=== PATIENT | female | born 1940 | race Caucasian/White ===

== ENCOUNTER → 2016-08-25 | Outpatient (CLI) | payer MEDICARE ==
--- NOTE | 2016-08-26 09:36 | MM ---
Reason for exam: screening (asymptomatic). Last mammogram was performed 1 year and 1 month ago. History: Patient is postmenopausal. Family history of breast cancer in aunt, premenopausal breast cancer in mother, and breast cancer in paternal aunt. Taking estrogen for 30 years 2 months. Taking progesterone for 30 years 2 months. Physical Findings: A clinical breast exam by your physician is recommended on an annual basis and results should be correlated with mammographic findings. MG 3D Screening Mammo W/Cad Bilateral CC, MLO, and XCCL view(s) were taken. Prior study comparison: August 08, 2015, bilateral MG 3d diag mammo w/cad DESTINI. July 24, 2014, bilateral MG screening mammo w CAD. The breast tissue is almost entirely fat. There is no discrete abnormality. No significant changes when compared with prior studies. ASSESSMENT: Negative, BI-RAD 1 RECOMMENDATION: Routine screening mammogram of both breasts in 1 year.
== END | disposition home or self-care (01) ==
LOC: RADMAMWWP 10:58
PROVIDERS: ATTEND Family Medicine
DX: Z12.31 Encounter for screening mammogram for malignant neoplasm of breast (principal)
CPT/HCPCS: 77063; G0202

== ENCOUNTER → 2016-11-10 | Outpatient (CLI) | payer MEDICARE ==
--- NOTE | 2016-11-10 15:14 | BD ---
EXAMINATION TYPE: MG DEXA axial skeleton. DATE OF EXAM: 11/10/2016 1:24 PM COMPARISON: NONE CLINICAL HISTORY: Osteoporosis screening, postmenopausal female Height: 56 IN Weight: 201 LBS FRAX RISK QUESTIONS: Alcohol (3 or more units per day): NO Family History (Parent hip fracture): NO Glucocorticoids (More than 3mos): NO (Ex: prednisone, prednisolone, methylprednisolone, dexamethasone, and hydrocortisone). History of Fracture in Adulthood: NO Secondary Osteoporosis: 1. Type 1 Diabetes: NO 2. Hyperthyroidism: NO 3. Menopause before 45: YES AGE 36 4. Malnutrition: NO 5. Chronic liver disease: NO Rheumatoid Arthritis: NO Current Tobacco Use: NO RISK FACTORS HISTORY OF: Active: MODERATE Postmenopausal woman: AGE 36 Take estrogen and/or progesterone medications: YES How long: AGE 44- PRESENT Lost more than 2 inches in height since high school: YES LOST 4" MEDICATIONS: Additional Medications: PREMARIN, BLOOD PRESSURE MED EXAM MEASUREMENTS: Bone mineral densitometry was performed using the Fast Orientation System. Bone mineral density as measured about the Lumbar spine is: ----- L1-L4(G/cm2): 1.908 T Score Values are as follows: ----- L2: 4.0 ----- L3: 5.3 ----- L4: 8.4 ----- L1-L4: 6.1 Bone mineral density has: Decreased -1.1% since study of: 08/10/2011 Bone mineral density about the R hip (g/cm2): 1.022 Bone mineral density about the L hip (g/cm2): 1.077 T Score values are as follows: -----R Neck: -0.1 -----L Neck: 0.3 -----R Total: 2.0 -----L Total: 2.3 Bone mineral density has: Increased 2.8% since study of: 08/10/2011 IMPRESSION: Normal bone density There is a scoliosis of the lumbar spine NOTE: T-SCORE=SD OF THE YOUNG ADULT MEAN.
== END | disposition home or self-care (01) ==
LOC: RADBDWWP 13:21
PROVIDERS: ATTEND Family Medicine
DX: Z13.820 Encounter for screening for osteoporosis (principal)
CPT/HCPCS: 77080

== ENCOUNTER → 2017-03-08 | Outpatient (CLI) | payer MEDICARE ==
--- NOTE | 2017-03-08 12:02 | XR ---
EXAMINATION TYPE: XR shoulder complete LT DATE OF EXAM: 03/08/2017 COMPARISON: NONE HISTORY: 76-year-old female with shoulder pain TECHNIQUE: 3 views FINDINGS: AC joint appears congruent and intact. Subacromial space is preserved without tendinous or bursal marilu cifications. No acute fracture, subluxation, or dislocation. IMPRESSION: No acute osseous abnormality seen.
== END | disposition home or self-care (01) ==
LOC: RADXRMAIN 10:44
PROVIDERS: ATTEND Family Medicine
DX: M25.512 Pain in left shoulder (principal)

== ENCOUNTER → 2017-08-03 | Outpatient (CLI) | payer MEDICARE ==
--- NOTE | 2017-08-03 12:59 | XR ---
EXAMINATION TYPE: XR shoulder complete BILAT DATE OF EXAM: 08/03/2017 CLINICAL HISTORY: Bilateral shoulder pain after recent fall injury 2 weeks ago. TECHNIQUE: Three views of the bilateral shoulders are obtained. COMPARISON: Left shoulder x-ray March 08, 2017. FINDINGS: The osseous structures are demineralized. There is no acute fracture/dislocation evident in either shoulder. Widening of right acromioclavicular joint is present without suspicious superior po sitioning of distal clavicle. There is subchondral cystic change superolateral humeral head. There is age indeterminate but suspected old posterior lateral right sixth rib fracture. Images of left shoulder show prominent narrowing acromioclavicular joint on current study without sig nificant spurring. Glenohumeral joint is maintained. Visualized ribs are intact. IMPRESSION: There is no acute fracture or dislocation in either shoulder.
--- NOTE | 2017-08-03 13:15 | XR ---
EXAMINATION TYPE: XR lumbosacral spine min 4V DATE OF EXAM: 08/03/2017 CLINICAL HISTORY: Low back pain after fall injury 2 weeks ago. TECHNIQUE: Frontal, lateral, and oblique images of the lumbar spine are obtained. COMPARISON: Lumbar spine x-ray July 24, 2011 FINDINGS: There are 6 lumbar type vertebral bodies redemonstrated. The lumbar spine redemonstrates dextroconvex scoliosis centered at L3-L4 level. Evaluation suboptimal lateral view due to patient's b driss habitus. There appears to be moderate to advanced compression type fracture deformity at T12 leve l with advanced disc space narrowing suspected ossific fusion near the thoracolumbar junction. No joy ear lucency to suggest acute fracture is clearly seen. Moderate to advanced multilevel spurring is se en. Moderate to advanced multilevel facet arthropathy is present. Disc space preserved L5-S1 level. P rominent vascular calcification overlying abdominal aorta is seen. Oblique images are suboptimal in e valuation due to underlying scoliosis. Cholecystectomy clips are redemonstrated. IMPRESSION: Dextroconvex scoliosis multilevel advanced degenerative changes. Suspect moderate to adva nced chronic compression fracture T12 level new from prior CT. No convincing evidence for acute fract ure or dislocation.
--- NOTE | 2017-08-03 13:18 | XR ---
EXAMINATION TYPE: XR thoracic spine complete DATE OF EXAM: 08/03/2017 CLINICAL HISTORY: Fall injury 2 weeks ago with mid back pain. TECHNIQUE: Frontal, lateral, and swimmer's view of thoracic spine are obtained. COMPARISON: None. FINDINGS: Thoracic spine show dextroconvex scoliotic curvature centered in lower thoracic spine witho ut evidence of acute fracture or dislocation. Spine is straightened in lower thoracic levels on later al images. Vertebral body heights are preserved. There is moderate to advanced multilevel anterior an d lateral spurring in the mid to lower thoracic spine. There is mild to moderate multilevel disc spac e narrowing in the mid to lower thoracic spine. Suspected compression fracture near L1 level on lumba r spine x-ray does not reproduce thoracic images. IMPRESSION: No acute fracture or dislocation is seen in the thoracic spine.
--- NOTE | 2017-08-03 13:20 | XR ---
EXAMINATION TYPE: XR cervical spine comp DATE OF EXAM: 08/03/2017 TECHNIQUE: Frontal, lateral, oblique, swimmers, and open mouth view of the cervical spine are obtaine d. HISTORY: M54.5 low back pain neck pain after fall injury 2 weeks ago. COMPARISON: None FINDINGS: The cervical spine is visualized in its entirety from C1 thru the bottom of C7 level, ther e is subtle grade 1 retrolisthesis of C3 on C4 without evidence of acute fracture or dislocation. Th e pre-vertebral soft tissue appears within normal limits. The C1-C2 articulation is within normal li mits on the open mouth view. There is suboptimal evaluation of C7-T1 level despite several repeat at tempts due to patient's body habitus. Vertebral body heights are maintained. Disc space heights are p reserved. No significant spurring is seen. There are uncovertebral facet degenerative changes contrib uting to left greater than right mid cervical neural foraminal narrowing seen best on oblique images. Overlying soft tissue is unremarkable. IMPRESSION: No acute fracture or dislocation is seen in the cervical spine.
== END | disposition home or self-care (01) ==
LOC: RADXRMAIN 12:18
PROVIDERS: ATTEND Family Medicine
DX: M47.816 Spondylosis without myelopathy or radiculopathy, lumbar region (principal); M41.9 Scoliosis, unspecified; M54.2 Cervicalgia; M54.6 Pain in thoracic spine; M25.511 Pain in right shoulder; M25.512 Pain in left shoulder
CPT/HCPCS: 72050; 72072; 72110

== ENCOUNTER 2017-09-13 12:42 | Inpatient (IN) | payer MEDICARE ==
[2017-09-13] MEDS ORDERED: SODIUM CHLORIDE 0.9% 1,000 ML IV STA (14:16)
[2017-09-13] MEDS ORDERED: VERAPAMIL 2.5 MG/ML 2 ML AMP IVP STA (14:16)
--- NOTE | 2017-09-13 14:32 | ED ---
General Adult HPI - General Chief complaint: Dizziness Stated complaint: Dizzy, Nauseated Time Seen by Provider: 09/13/17 13:58 Source: patient, family, RN notes reviewed, old records reviewed Mode of arrival: ambulatory Limitations: no limitations - History of Present Illness Initial comments: Chief complaint and history of present illness is a 76-year-old female here with daughter. The patient is here because of dizziness which comes and goes. Daughter reports that she had a slip and fall on an icy edge of a car in July. She landed on her buttocks and hit her head or neck. She was placed in a [place] collar the next day when she turned her head to the left right with a collar on she had a discomfort to the left trapezius muscle area. She did go to see her family physician today because her blood pressure was elevated at home 180/101. At the doctor's office it was rechecked it was 130/ 80. Heart rate there was 50/60. Around emergency room her heart rate was 50 and blood pressure was 131/72. The patient was being placed in a gown when her heart rate jumped to 140. EKG showed A. fib with RVR. This is a new medical issue. - Related Data Home Medications Medication Instructions Recorded Confirmed Brimonidine Tartrate/Timolol 1 drop BOTH EYES BID 08/20/14 09/13/17 [Combigan 0.2%/0.5% Ophth Soln] Latanoprost Ophth [Xalatan 0.005%] 1 drop BOTH EYES HS 08/20/14 09/13/17 Losartan/Hydrochlorothiazide 1 tab PO DAILY 08/20/14 09/13/17 [Hyzaar 100-25 Tablet] Estrogens, Conjugated [Premarin] 0.9 mg PO DAILY 10/29/15 09/13/17 Meclizine [Antivert] 25 mg PO TID 09/13/17 09/13/17 Allergies Allergy/AdvReac Type Severity Reaction Status Date / Time Sulfa (Sulfonamide Allergy Unknown Verified 09/13/17 14:35 Antibiotics) Review of Systems ROS Statement: Those systems with pertinent positive or pertinent negative responses have been documented in the HPI. Review of systems. The patient has dizziness with quick movement of the left or right or laying down quickly or sitting up quickly. This been ongoing for 3 weeks. She been on for meclizine during that time. It usually helps. Today she didn't take because she was having medical testing done. She did stop and see her family doctor because of her dizziness. He had ordered a CAT scan of the brain with IV contrast. Unbeknownst him the patient was apparently in and out of A. fib with RVR which she demonstrated here. Patient had an IV started she'll be receiving verapamil 5 mg slow IV push. Historical note, Cardizem unavailable. The patient is otherwise denying any palpitations chest pain. She was nauseated and vomiting for the first time this morning while in emergency room. Past medical problems significant for hypertension, osteoarthritis, pneumonia, glaucoma and diverticulitis. Surgeries include cholecystectomy hysterectomy. Family history noncontributory. Patient is a former smoker drinks alcohol socially occasionally. ALLERGIES to sulfa. ROS Other: All systems not noted in ROS Statement are negative. Past Medical History Past Medical History: Hypertension, Osteoarthritis (OA), Pneumonia Additional Past Medical History / Comment(s): glucoma, diverticulitis, BRONCHITIS ,LT EYE CATARACT, PT STATED"HAS RUPTURE ON OPTIC NERVE RT EYE HAS LASER SX PLANNED FOR FRI" History of Any Multi-Drug Resistant Organisms: None Reported Past Surgical History: Cholecystectomy, Hysterectomy Past Anesthesia/Blood Transfusion Reactions: No Reported Reaction Past Psychological History: No Psychological Hx Reported Smoking Status: Former smoker Past Alcohol Use History: Occasional Past Drug Use History: None Reported - Past Family History Father Family Medical History: Cancer, Congestive Heart Failure (CHF) Additional Family Medical History / Comment(s): ENLARGED HEART Brother(s) Family Medical History: Cancer, Liver Disease Additional Family Medical History / Comment(s): CANCER IN HIS EYE AND IN HIS LIVER. AND 2 OTHER BROTHERS FROM NH'S Sister(s) Family Medical History: CVA/TIA Mother Family Medical History: Cancer Additional Family Medical History / Comment(s): BREAST/LUNG CANCER,LEUKEMIA General Exam - General Exam Comments Initial Comments: General: The patient is awake and alert, does emergency room because of nausea vomiting and moderate to severe dizziness. While in emergency room EKG showed evidence of A. fib with RVR rate 135-145. This is new onset. Vital signs temperature 97.5 initial pulse was 50. Respiratory rate 18 pressure 131/72. Pulse ox 90% room air Eye: Pupils are equal, round and reactive to light, extra-ocular movements are intact ; there is normal conjunctiva bilaterally. No signs of icterus. Ears, nose, mouth and throat: There are moist mucous membranes and no oral lesions. Neck: The neck is supple, there is no tenderness, no carotid bruit appreciated. Cardiovascular: Heart rate initially bradycardic at 50. And then A. fib with RVR was noted on the monitor. EKG confirms this. Respiratory: Lungs are clear to auscultation, respirations are non-labored, breath sounds are equal. No wheezes, stridor, rales, or rhonchi. Gastrointestinal: Soft, non-distended, non-tender abdomen without masses or organomegaly noted. There is no rebound or guarding present. No CVA tenderness. Bowel sounds are unremarkable. Back: There is no tenderness to palpation in the midline. There is no obvious deformity. Musculoskeletal: Normal ROM, no tenderness, There is no pedal edema. There is no calf tenderness or swelling. Sensation intact. Pulses equal bilaterally 2+. Neurological: CN II-XII intact, There are no obvious motor or sensory deficits. Coordination appears grossly intact. Speech is normal. No focal or lateralizing findings. No nystagmus when looking toward the left or right. Dizziness does increase when she sits up or moves her head quickly or lays down quickly. And then subsides after a minute or 2. Skin: Skin is warm and dry and no rashes or lesions are noted. Psychiatric: Cooperative, Limitations: no limitations Course Vital Signs 09/13/17 09/13/17 09/13/17 12:46 14:38 15:05 Temperature 97.5 F L Pulse Rate 50 L 100 Pulse Rate [ 146 H Radio Division Captain ] Respiratory 18 18 Rate Blood Pressure 131/72 133/86 O2 Sat by Pulse 98 98 Oximetry 09/13/17 16:14 Temperature Pulse Rate 88 Pulse Rate [ Radio Division Captain ] Respiratory 18 Rate Blood Pressure 125/74 O2 Sat by Pulse 98 Oximetry EKG Findings - EKG Comments: EKG Findings:: EKG was done and reviewed at 1450 showing A. fib with RVR rate 136. No acute ST elevation appreciated. QRS duration 74, QT [address] Pelletier Medical Decision Making - Medical Decision Making medical decision making; a 76-year-old female here with a complaint of dizziness. On emergency room the patient vomited several times. He was found the patient was in A. fib with RVR. Alternating with a bradycardic rhythm. No EKG was done when she was bradycardic. The patient was given verapamil 5 mg IV push. Labs show white count of 11 hemoglobin 13.8 hematocrit of 40 with a potassium 3.6. INR 0.9. BUN 19 creatinine 0.6 GFR 88. Glucose 100. Troponin less than 0.012. Urine essentially clean with only 6 whites. Chest x-ray was done and reviewed by radiologist. His findings are there is no heart failure nor confluent pneumonic infiltrate. Costophrenic angles are clear. Thoracic aorta is atheromatous. There are chest leads. There are spurring in the thoracic spine. Impression no active cardiopulmonary disease. As read by Dr. Bernard At this time, 1740 9 PM the patient is back in sinus rhythm but bradycardic rhythm of 58. I discussed with the patient and family at bedside her history of A. fib seemingly converted early slowed at this time with IV verapamil. The patient be admitted to the hospital. With cardiology consultation. - Lab Data Result diagrams: 09/13/17 14:05 09/13/17 14:05 Lab Results 09/13/17 09/13/17 09/13/17 Range/Units 14:05 14:05 14:05 WBC 11.0 H (3.8-10.6) k/uL RBC 4.81 (3.80-5.40) m/uL Hgb 13.8 (11.4-16.0) gm/dL Hct 40.2 (34.0-46.0) % MCV 83.7 D (80.0-100.0) fL MCH 28.7 (25.0-35.0) pg MCHC 34.4 (31.0-37.0) g/dL RDW 13.5 (11.5-15.5) % Plt Count 292 (150-450) k/uL Neutrophils % 69 % Lymphocytes % 22 % Monocytes % 6 % Eosinophils % 1 % Basophils % 1 % Neutrophils # 7.6 (1.3-7.7) k/uL Lymphocytes # 2.4 (1.0-4.8) k/uL Monocytes # 0.7 (0-1.0) k/uL Eosinophils # 0.1 (0-0.7) k/uL Basophils # 0.1 (0-0.2) k/uL PT 9.4 (9.0-12.0) sec INR 0.9 (<1.2) Sodium 138 (137-145) mmol/L Potassium 3.6 (3.5-5.1) mmol/L Chloride 98 (98-107) mmol/L Carbon Dioxide 30 (22-30) mmol/L Anion Gap 10 mmol/L BUN 19 H (7-17) mg/dL Creatinine 0.60 (0.52-1.04) mg/dL Est GFR (CKD-EPI)AfAm >90 (>60 ml/min/1.73 sqM) Est GFR (CKD-EPI)NonAf 88 (>60 ml/min/1.73 sqM) Glucose 100 H (74-99) mg/dL Calcium 9.5 (8.4-10.2) mg/dL Total Bilirubin 0.4 (0.2-1.3) mg/dL AST 17 (14-36) U/L ALT 11 (9-52) U/L Alkaline Phosphatase 108 (38-126) U/L Troponin I (0.000-0.034) ng/mL Total Protein 6.9 (6.3-8.2) g/dL Albumin 3.6 (3.5-5.0) g/dL Urine Color Urine Appearance (Clear) Urine pH (5.0-8.0) Ur Specific [place] (1.001-1.035) Urine Protein (Negative) Urine Glucose (UA) (Negative) Urine Ketones (Negative) Urine Blood (Negative) Urine Nitrite (Negative) Urine Bilirubin (Negative) Urine Urobilinogen (<2.0) mg/dL Ur Leukocyte Esterase (Negative) Urine RBC (0-5) /hpf Urine WBC (0-5) /hpf Ur Squamous Epith Cells (0-4) /hpf Amorphous Sediment (None) /hpf Urine Bacteria (None) /hpf 09/13/17 09/13/17 Range/Units 14:05 16:36 WBC (3.8-10.6) k/uL RBC (3.80-5.40) m/uL Hgb (11.4-16.0) gm/dL Hct (34.0-46.0) % MCV (80.0-100.0) fL MCH (25.0-35.0) pg MCHC (31.0-37.0) g/dL RDW (11.5-15.5) % Plt Count (150-450) k/uL Neutrophils % % Lymphocytes % % Monocytes % % Eosinophils % % Basophils % % Neutrophils # (1.3-7.7) k/uL Lymphocytes # (1.0-4.8) k/uL Monocytes # (0-1.0) k/uL Eosinophils # (0-0.7) k/uL Basophils # (0-0.2) k/uL PT (9.0-12.0) sec INR (<1.2) Sodium (137-145) mmol/L Potassium (3.5-5.1) mmol/L Chloride (98-107) mmol/L Carbon Dioxide (22-30) mmol/L Anion Gap mmol/L BUN (7-17) mg/dL Creatinine (0.52-1.04) mg/dL Est GFR (CKD-EPI)AfAm (>60 ml/min/1.73 sqM) Est GFR (CKD-EPI)NonAf (>60 ml/min/1.73 sqM) Glucose (74-99) mg/dL Calcium (8.4-10.2) mg/dL Total Bilirubin (0.2-1.3) mg/dL AST (14-36) U/L ALT (9-52) U/L Alkaline Phosphatase (38-126) U/L Troponin I <0.012 (0.000-0.034) ng/mL Total Protein (6.3-8.2) g/dL Albumin (3.5-5.0) g/dL Urine Color Colorless Urine Appearance Clear (Clear) Urine pH 7.0 (5.0-8.0) Ur Specific [place] 1.003 (1.001-1.035) Urine Protein Negative (Negative) Urine Glucose (UA) Negative (Negative) Urine Ketones Negative (Negative) Urine Blood Trace H (Negative) Urine Nitrite Negative (Negative) Urine Bilirubin Negative (Negative) Urine Urobilinogen <2.0 (<2.0) mg/dL Ur Leukocyte Esterase Negative (Negative) Urine RBC 3 (0-5) /hpf Urine WBC 6 H (0-5) /hpf Ur Squamous Epith Cells 1 (0-4) /hpf Amorphous Sediment Rare H (None) /hpf Urine Bacteria Many H (None) /hpf Disposition Clinical Impression: New onset a-fib, Vertigo Disposition: ADMITTED IP TO THIS HOSP Condition: Serious Referrals: Justus Ledbetter DO [Primary Care Provider] - 1-2 days
[2017-09-13 14:36] LABS: INR 0.9 (<1.2); Prothrombin Time 9.4 sec (9.0-12.0)
[2017-09-13 14:44] LABS: Basophils # (A) 0.1 k/uL (0-0.2); Basophils % (A) 1 %; Eosinophils # (A) 0.1 k/uL (0-0.7); Eosinophils % (A) 1 %; HCT 40.2 % (34.0-46.0); HGB 13.8 gm/dL (11.4-16.0); Lymphocytes # (A) 2.4 k/uL (1.0-4.8); Lymphocytes % (A) 22 %; MCH 28.7 pg (25.0-35.0); MCHC 34.4 g/dL (31.0-37.0); Mean Platelet Volume 6.9; Monocytes # (A) 0.7 k/uL (0-1.0); Monocytes % (A) 6 %; Neutrophils # (A) 7.6 k/uL (1.3-7.7); Neutrophils % (A) 69 %; Platelet Count 292 k/uL (150-450); RBC 4.81 m/uL (3.80-5.40); RDW 13.5 % (11.5-15.5)
[2017-09-13 14:56] LABS: MCV 83.7 fL (80.0-100.0)
[2017-09-13 14:58] LABS: ALT 11 U/L (9-52); AST 17 U/L (14-36); Albumin 3.6 g/dL (3.5-5.0); Alkaline Phosphatase 108 U/L (38-126); Anion Gap 10 mmol/L; Blood Urea Nitrogen 19 mg/dL (7-17); Calcium 9.5 mg/dL (8.4-10.2); Carbon Dioxide 30 mmol/L (22-30); Chloride 98 mmol/L (98-107); Glucose 100 mg/dL (74-99); Potassium 3.6 mmol/L (3.5-5.1); Sodium 138 mmol/L (137-145); Total Bilirubin 0.4 mg/dL (0.2-1.3); Total Protein 6.9 g/dL (6.3-8.2)
[2017-09-13 16:57] LABS: Amorphous Sediment,Urine Rare /hpf; Appearance,Urine Clear (Clear); Bacteria,Urine Many /hpf; Bilirubin,Urine Negative (Negative); Blood,Urine Trace (Negative); Color,Urine Colorless; Glucose,Urine (UA) Negative (Negative); Ketones,Urine Negative (Negative); Leukocyte Esterase,Urine Negative (Negative); Nitrite,Urine Negative (Negative); Protein,Urine Negative (Negative); RBC,Urine 3 /hpf (0-5); Specific Gravity,Urine 1.003 (1.001-1.035); Squamous Epithelial Cell,Urine 1 /hpf (0-4); Urobilinogen,Urine <2.0 mg/dL (<2.0); WBC,Urine 6 /hpf (0-5)
--- NOTE | 2017-09-13 17:18 | XR ---
EXAMINATION TYPE: XR chest 2V DATE OF EXAM: 09/13/2017 COMPARISON: NONE HISTORY: Dizziness TECHNIQUE: Frontal and lateral views of the chest are obtained. FINDINGS: There is no heart failure nor confluent pneumonic infiltrate. Costophrenic angles are lupillo r. Thoracic aorta is atheromatous. There are chest leads. There is spurring in the thoracic spine. IMPRESSION: No active cardiopulmonary disease.
[2017-09-13] MEDS ORDERED: ACETAMINOPHEN TAB 325 MG TAB PO PRN (17:51)
[2017-09-13] MEDS ORDERED: NALOXONE 0.4 MG/ML 1 ML VIAL IV PRN (17:51)
[2017-09-13] MEDS ORDERED: HEPARIN SOD,PORK IN 0.45% NACL 25,000 UNIT in 0.45% NACL 1 500ML.BAG IV SCH (18:15)
[2017-09-13] MEDS: SODIUM CHLORIDE 0.9% 1,000 ML IV SCH (20:06)
[2017-09-13 20:41] LABS: Creatine Kinase MB 1.8 ng/mL (0.0-2.4)
[2017-09-13 20:55] LABS: Troponin I 0.069 ng/mL (0.000-0.034)
[2017-09-13] MEDS ORDERED: [UNRECOGNIZED DRUG - OTHER] BOTH EYES SCH (21:00)
[2017-09-13] MEDS ORDERED: TIMOLOL BOTH EYES SCH (21:00)
[2017-09-13] MEDS ORDERED: BRIMONIDINE TARTRATE BOTH EYES SCH (21:00)
[2017-09-13] MEDS: MECLIZINE 25 MG TAB PO SCH (22:45)
[2017-09-13] MEDS: LATANOPROST 0.005% OPHTH DROPS 2.5 ML BTL BOTH EYES SCH (22:46)
[2017-09-13] MEDS: TIMOLOL 0.5% OPHTH DROPS 5 ML BTL BOTH EYES SCH (22:46)
[2017-09-13] MEDS: BRIMONIDINE TARTRATE 0.2% DROPS 5 ML BTL BOTH EYES SCH (22:46)
[2017-09-14 02:41] LABS: Creatine Kinase <20 U/L (30-135)
[2017-09-14 02:52] LABS: Creatine Kinase MB 1.3 ng/mL (0.0-2.4)
[2017-09-14 03:18] LABS: Troponin I 0.063 ng/mL (0.000-0.034)
[2017-09-14 06:22] LABS: Basophils % (A) 1 %; Eosinophils # (A) 0.1 k/uL (0-0.7); Eosinophils % (A) 2 %; HCT 33.8 % (34.0-46.0); Lymphocytes # (A) 3.3 k/uL (1.0-4.8); Lymphocytes % (A) 40 %; MCH 28.2 pg (25.0-35.0); MCHC 32.7 g/dL (31.0-37.0); MCV 86.5 fL (80.0-100.0); Monocytes # (A) 0.5 k/uL (0-1.0); Monocytes % (A) 6 %; Neutrophils % (A) 48 %; Platelet Count 231 k/uL (150-450); RBC 3.91 m/uL (3.80-5.40); RDW 13.7 % (11.5-15.5); WBC 8.3 k/uL (3.8-10.6)
[2017-09-14 07:19] LABS: ALT 19 U/L (9-52); AST 43 U/L (14-36); Albumin 2.7 g/dL (3.5-5.0); Alkaline Phosphatase 83 U/L (38-126); Anion Gap 7 mmol/L; Blood Urea Nitrogen 19 mg/dL (7-17); Calcium 8.7 mg/dL (8.4-10.2); Carbon Dioxide 30 mmol/L (22-30); Chloride 105 mmol/L (98-107); Glucose 92 mg/dL (74-99); Potassium 4.1 mmol/L (3.5-5.1); Sodium 142 mmol/L (137-145); Total Bilirubin 0.3 mg/dL (0.2-1.3); Total Protein 5.4 g/dL (6.3-8.2)
[2017-09-14] MEDS: MECLIZINE 25 MG TAB PO SCH ×3 (07:59→21:45)
[2017-09-14] MEDS: TIMOLOL 0.5% OPHTH DROPS 5 ML BTL BOTH EYES SCH ×2 (07:59→21:44)
[2017-09-14] MEDS: BRIMONIDINE TARTRATE 0.2% DROPS 5 ML BTL BOTH EYES SCH ×2 (07:59→21:44)
[2017-09-14] MEDS: LOSARTAN-HCTZ 50-12.5 MG 1 EACH TAB PO SCH (07:59)
[2017-09-14] MEDS: SODIUM CHLORIDE 0.9% 1,000 ML IV SCH (08:00)
[2017-09-14] MEDS ORDERED: ESTROGENS, CONJUGATED 0.45 MG TAB PO SCH (09:00)
[2017-09-14] MEDS ORDERED: PREMARIN PO SCH (09:24)
--- NOTE | 2017-09-14 09:57 | CT ---
EXAMINATION TYPE: CT brain wo con DATE OF EXAM: 09/14/2017 COMPARISON: NONE HISTORY: Vertigo CT DLP: [address] of the brain was performed. The ventricles, basal cisterns and sulci overlying the cerebral convexities demonstrate mild enlargem ent. There is no evidence for intracranial hemorrhage or sulcal effacement. There is decreased attenuation about the periventricular white matter and deep white matter of both c erebral hemispheres, compatible with chronic small vessel ischemia. Differential diagnosis does inclu de demyelination. No mass effects are seen.No midline shift. Osseous calvarium is intact. If symptoms persist consider MRI. IMPRESSION: 1. Age related atrophic and chronic small vessel ischemic change without acute intracranial process s een at this time.
[2017-09-14] MEDS ORDERED: RX INFO: IV CONTRAST WAS GIVEN 1 EACH MISC MISCELLANE PRN ×2 (10:15→11:39)
[2017-09-14] MEDS: APIXABAN 5 MG TAB PO SCH ×2 (10:42→21:45)
--- NOTE | 2017-09-14 10:58 | CONS ---
CONSULTATION CHIEF COMPLAINT: Dizziness. Milly is a 76-year-old lady with history of hypertension who presented to hospital with symptoms of vertigo. She was found to be in atrial fibrillation with somewhat of a poorly controlled ventricular rate for which Cardiology had been consulted. She subsequently converted to sinus rhythm and remains in sinus rhythm. She denies chest pain, difficulty in breathing, palpitations, or syncope. There is no history of focal neurological deficits. The patient has already been started on Antivert in the outpatient setting and which we have to continued. This morning she is feeling better. The vertigo has improved. EKG shows sinus bradycardia. Earlier EKG showed atrial fibrillation. Labs showed that her troponins are mildly elevated at 0.069 and 0.063 and the initial trope was less than 0.012. PAST MEDICAL HISTORY: Significant for hypertension. MEDICATIONS: At home include Hyzaar, Premarin and Antivert. ALLERGIES: SULFA. FAMILY HISTORY: Negative for premature coronary artery disease. SOCIAL HISTORY: Negative for smoking, EtOH abuse, or drug abuse. REVIEW OF SYSTEMS: HEENT is unremarkable. CARDIAC: As described above. RESPIRATORY: Negative. GI: Negative. GENITOURINARY: Negative. ALLERGY/IMMUNOLOGY: Negative. SKIN: Negative. MUSCULOSKELETAL: Significant for arthritis. PSYCHOSOCIAL: Negative. ENDOCRINE: Negative. HEMATOLOGICAL: Negative. DERM: Negative. CONSTITUTIONAL: Negative. ONCOLOGICAL: Negative. Rest of the system review is not relevant. PHYSICAL EXAM: Comfortable at rest. Patient is afebrile. Heart rate is 70 beats per minute, blood pressure is 169/74. There is no jugular venous distention. Carotid upstroke is normal. There is no bruit. Chest exam reveals diminished air entry at the bases, heart exam reveals first and second heart sounds. No gallop. No murmur. Abdomen is soft, nontender. Exam of extremities did not reveal any edema. Peripheral pulses are felt. LABS: Show a hemoglobin of 11, potassium is 4.1. Troponin is mildly elevated. EKG does not reveal acute ischemic changes. ASSESSMENT: 1. Vertigo. 2. Paroxysmal atrial fibrillation. 3. Elevated troponin. PLAN: Patient's vertigo is unrelated to the atrial fibrillation. She needs to be on an anticoagulant for stroke prevention and I am going to start her on Eliquis 5 mg b.i.d. I will obtain a 2D echo to evaluate her LV function. The exact etiology of her troponin elevation is unclear. It could be due to supply-demand mismatch. We certainly have to rule out pulmonary embolism. I am going to obtain a D-dimer on her. Will continue to watch her on telemetry. MIL / SINA: [id number] /
--- NOTE | 2017-09-14 11:23 | ECHOF ---
Referral Reason: MEASUREMENTS -------- HEIGHT: 149.9 cm WEIGHT: 93.4 kg BP: IVSd: 1.5 cm (0.6 - 1.1) LVIDd: 4.0 cm (3.9 - 5.3) LVPWd: 1.3 cm (0.6 - 1.1) IVSs: 1.8 cm LVIDs: 2.3 cm LVPWs: 1.6 cm LAESV Index (A-L): 20.90 ml/m Ao Diam: 2.4 cm (2.0 - 3.7) AV Cusp: 1.4 cm (1.5 - 2.6) LA Diam: 3.4 cm (2.7 - 3.8) MV EXCURSION: 11.800 mm (> 18.000) MV EF SLOPE: 40 mm/s (70 - 150) EPSS: 0.6 cm MV E Moises: 1.16 m/s MV DecT: 213 ms MV A Moises: 1.03 m/s MV E/A Ratio: 1.13 RAP: 5.00 mmHg RVSP: 12.04 mmHg FINDINGS -------- Sinus rhythm. Resting bradycardia (HR<60bpm). This was a technically good study. The left ventricular size is normal. There is mild concentric left ventricular hypertrophy. Overa ll left ventricular systolic function is normal with, an EF between 55 - 60 %. The right ventricle is normal in size and function. The left atrium is normal in size. The right atrium is normal in size. Aortic valve is trileaflet and is mildly thickened. The mitral valve leaflets are mildly thickened. Mild mitral annular calcification present. Mild m itral regurgitation is present. Trace tricuspid regurgitation present. The right ventricular systolic pressure, as measured by Dopp ler, is 12.04mmHg. Pulmonic valve appears structurally normal. The aortic root size is normal. Normal inferior vena cava with normal inspiratory collapse consistent with estimated right atrial pre ssure of 5 mmHg. The pericardium is normal. CONCLUSIONS -------- 1. Sinus rhythm. 2. Resting bradycardia (HR<60bpm). 3. This was a technically good study. 4. The left ventricular size is normal. 5. There is mild concentric left ventricular hypertrophy. 6. Overall left ventricular systolic function is normal with, an EF between 55 - 60 %. 7. The right ventricle is normal in size and function. 8. The left atrium is normal in size. 9. The right atrium is normal in size. 10. Aortic valve is trileaflet and is mildly thickened. 11. The mitral valve leaflets are mildly thickened. 12. Mild mitral annular calcification present. 13. Mild mitral regurgitation is present. 14. Trace tricuspid regurgitation present. 15. The right ventricular systolic pressure, as measured by Doppler, is 12.04mmHg. 16. Pulmonic valve appears structurally normal. 17. The aortic root size is normal. 18. Normal inferior vena cava with normal inspiratory collapse consistent with estimated right atrial pressure of 5 mmHg. 19. The pericardium is normal. CHAIRMAN AND CEO: Devika Kamara RDCS
--- NOTE | 2017-09-14 12:48 | CT ---
EXAMINATION TYPE: CT angio head neck DATE OF EXAM: 09/14/2017 COMPARISON: NONE HISTORY: Dizziness and Abnormal CT CT DLP: 390.5 mGycm CONTRAST: Performed with IV Contrast, patient injected with 65 mL of Isovue 370. Combination Contrast CTA cervical carotids and [place] CTA cervical carotids with 3-D recons truction Contrast CTA of the cervical carotids was performed 3-D reconstruction imaging obtained at a separate workstation. Right carotid system: Mild plaque is seen of the right common carotid artery. There is moderate pred ominantly soft plaque also noted at the carotid bulb and proximal ICA. Estimated diameter reduction is approximately 75%. ECA is patent. Right vertebral artery appears unremarkable. Left carotid system: Mild plaque is seen of the left common carotid artery. There is mild plaque als o noted at the carotid bulb and proximal ICA. No significant diameter reduction. ECA is patent. Lef t vertebral artery appears unremarkable. IMPRESSION: 1. Estimated 75% diameter reduction proximal right ICA. CTA [place] with 3-D reconstruction Contrast CTA of the [place] was performed 3-D reconstruction imaging obtained at a separate workstation. Vertebrobasilar system as well as intracranial portions of the internal carotid arteries and their ma dee dee tributaries are patent. I do not see evidence for sizable aneurysm or vascular malformation. Pl ease note MRI provides greater sensitivity and specificity. Visualized portions of the brain demonstrate mildly enhancing mass extra-axial in location right fron ralph lobe measuring 3.4 x 3.1 cm. There is an additional small extra-axial lesion high right frontal l obe measuring 1.8 cm. The lesions may reflect meningioma. Consider MRI correlation. IMPRESSION: 1. Enhancing right frontal extra-axial lesions may reflect meningioma. Consider MRI correlation. 2. No evidence for sizable aneurysm or vascular malformation.
--- NOTE | 2017-09-14 15:50 | P.CNNES ---
History of Present Illness Consult date: 09/14/17 Reason for Consult: Patient with acute dizziness and new onset atrial fibrillation. History of Present Illness: This patient is a 76-year-old female who was brought into the emergency room yesterday with symptoms of dizziness and unsteady gait. Patient has a history of having sustained a fall back in July of this year but she landed on her buttocks region. She did not strike her head. She did sustain some neck injury from that fall and was placed into a [place] collar. She states that there was some manipulation of the neck that may have triggered her symptoms of dizziness following that placement of the [place] collar. Subsequently she has had recurrent episodes of dizziness and vertigo. She was advised to come to the emergency room by her primary care physician. In the ER the patient was noted to have sudden onset of tachycardia. She then went into new onset of atrial fibrillation with RVR. She was admitted to the hospital for further evaluation. Patient was sent for a computed tomography scan of the brain today as it was not done in the ER. CAT scan revealed age-related atrophy and chronic small vessel ischemic changes. No acute intracranial process was noted. Addendum to the CAT scan report revealed isodense masses in the right frontal lobe. Lesions likely reflecting meningiomas. MRI of the brain was recommended as follow-up. The patient was also sent for CT angiogram of the head and neck today. 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 No evidence of aneurysm or vascular malformation was noted. Right frontal lobe lesions were once again noted reflecting possible meningioma. We recommend patient undergo an MRI of the brain for further evaluation. Would also consider vascular surgery consultation regarding right ICA stenosis. Patient states she has no previous history of heart disease in the past. She was seen by cardiology today and they're recommending that she be anticoagulated. She is to start on Eliquis for long-term anticoagulation. We have recommended an ENT consultation for the patient as well to further assess for cervical vertigo as a cause of her current symptoms. Her vertigo was not related to the new onset of atrial fibrillation. Patient is doing somewhat better today in terms of her overall symptoms of vertigo. We're also recommending that she should follow low-sodium diet and some degree of fluid restriction as well. This may help overall symptoms of acute labyrinthitis and vertigo. We are referring patient undergo MRI of the brain for further evaluation of possible right frontal lobe meningioma. We will await further recommendations from cardiology who had seen the patient today as well. Her overall prognosis at this time remains guarded. Review of Systems Constitutional: Denies chills, Denies fever Eyes: denies blurred vision, denies pain Ears, nose, mouth and throat: Denies headache, Denies sore throat Cardiovascular: Denies chest pain, Denies shortness of breath Respiratory: Denies cough Gastrointestinal: Denies abdominal pain, Denies diarrhea, Denies nausea, Denies vomiting Genitourinary: Denies dysuria, Denies hematuria Musculoskeletal: Denies myalgias Integumentary: Denies pruritus, Denies rash Neurological: Reports balance difficulties, Reports confusion, Reports gait dysfunction, Reports vertigo, Denies numbness, Denies weakness Psychiatric: Denies anxiety, Denies depression Endocrine: Denies fatigue, Denies weight change Past Medical History Past Medical History: Hypertension, Osteoarthritis (OA), Pneumonia Additional Past Medical History / Comment(s): glucoma, diverticulitis, BRONCHITIS ,LT EYE CATARACT, PT STATED"HAd RUPTURE ON OPTIC NERVE RT EYE", uti . PT FELL Jul LANDED ON HER BUTT,STATED SHE FELT LIKE SHE DURGA HER BACK. WAS ORDERED A NECK BRACE-WHEN SHE PUT IT ON SHE FELT SOMETHING POP ON THE LT SIDE OF HER NECK.THENSHE STARTED WITH THE DIZZINESS." History of Any Multi-Drug Resistant Organisms: None Reported Past Surgical History: Cholecystectomy, Hysterectomy Additional Past Surgical History / Comment(s): rt cataract sx, injection lt foot Past Anesthesia/Blood Transfusion Reactions: No Reported Reaction Smoking Status: Former smoker - Past Family History Father Family Medical History: Cancer, Congestive Heart Failure (CHF) Additional Family Medical History / Comment(s): ENLARGED HEART Brother(s) Family Medical History: Cancer, Liver Disease Additional Family Medical History / Comment(s): CANCER IN HIS EYE AND IN HIS LIVER. AND 2 OTHER BROTHERS FROM [place] Sister(s) Family Medical History: CVA/TIA Mother Family Medical History: Cancer Additional Family Medical History / Comment(s): BREAST/LUNG CANCER,LEUKEMIA Medications and Allergies Home Medications Medication Instructions Recorded Confirmed Type Brimonidine Tartrate/Timolol 1 drop BOTH EYES BID 08/20/14 09/13/17 History [Combigan 0.2%/0.5% Ophth Soln] Latanoprost Ophth [Xalatan 0.005%] 1 drop BOTH EYES HS 08/20/14 09/13/17 History Losartan/Hydrochlorothiazide 1 tab PO DAILY 08/20/14 09/13/17 History [Hyzaar 100-25 Tablet] Estrogens, Conjugated [Premarin] 0.9 mg PO DAILY 10/29/15 09/13/17 History Meclizine [Antivert] 25 mg PO TID 09/13/17 09/13/17 History Allergies Allergy/AdvReac Type Severity Reaction Status Date / Time Sulfa (Sulfonamide Allergy Unknown Verified 09/13/17 14:35 Antibiotics) Physical Examination - Vital Signs Vital Signs: Vital Signs Temp Pulse Pulse Pulse Pulse Pulse Resp 09/14/17 07:59 97 F L 71 70 64 18 09/14/17 04:00 64 20 09/14/17 00:00 58 L 16 09/13/17 20:53 96.6 F L 58 L 16 09/13/17 19:24 97.1 F L 60 18 09/13/17 19:07 55 L 16 09/13/17 16:14 88 18 09/13/17 15:05 100 18 09/13/17 14:38 146 H 09/13/17 12:46 97.5 F L 50 L 18 BP BP BP BP BP Pulse Ox 09/14/17 07:59 169/74 178/79 120/59 93 L 09/14/17 04:00 106/53 97 09/14/17 00:00 09/13/17 20:53 135/64 09/13/17 19:24 153/70 97 09/13/17 19:07 154/67 97 09/13/17 16:14 125/74 98 09/13/17 15:05 133/86 98 09/13/17 14:38 09/13/17 12:46 131/72 98 Intake and Output 09/13/17 09/14/17 09/14/17 22:59 06:59 14:59 Intake Total 324.938 120 Output Total 300 Balance 24.938 120 Intake: Intake, IV Titration 124.938 Amount Heparin Sod,Pork in 0.45% 124.938 NaCl 25,000 unit In 0.45 % NaCl 1 500ml.bag @ 11. 024 UNITS/KG/HR 20 mls/hr IV .Q24H [facility] Rx#: [id number] Oral 200 120 Output: Urine 300 Other: # Voids 1 Weight 93.8 kg - Constitutional General appearance: average body habitus, cooperative - EENT EENT: PERRL, mucous membranes moist - Respiratory Respiratory: lungs clear, normal breath sounds - Cardiovascular Cardiovascular: normal S1, normal S2 Extremities: no peripheral edema bilaterally - Gastrointestinal Gastrointestinal: normoactive bowel sounds - Integumentary Integumentary: normal - Neurologic Cranial nerve examination: PERRL, EOMI, VFF, V1/V2/V3 grossly intact, face symmetric, intact gag reflex, intact corneal reflex, normal palatal elevation Speech examination: intact Sensorimotor examination: intact Motor examination - right side: 4/5: biceps, triceps, wrist flexion, wrist extension, [employer], hip flexors, knee extensors, dorsiflexion, toe extension (EHL) , plantarflexion Motor examination - left side: 4/5: biceps, triceps, wrist flexion, wrist extension, [employer], hip flexors, knee extensors, dorsiflexion, toe extension (EHL) , plantarflexion Detailed sensory examination: intact Reflex and gait examination: intact Reflexes: 1+: ankle, bicep, knee, tricep - Musculoskeletal Musculoskeletal: no pain - Psychiatric Psychiatric: mood/affect appropriate, cooperative Results - Laboratory Findings CBC and BMP: 09/14/17 06:04 09/14/17 06:04 Abnormal Lab Findings: Abnormal Labs 09/13/17 09/13/17 09/13/17 14:05 14:05 16:36 WBC 11.0 H Hgb Hct APTT BUN 19 H Glucose 100 H AST Total Creatine Kinase Troponin I Total Protein Albumin Urine Blood Trace H Urine WBC 6 H Amorphous Sediment Rare H Urine Bacteria Many H 09/13/17 09/13/17 09/14/17 20:00 23:54 01:48 WBC Hgb Hct APTT 35.5 H BUN Glucose AST Total Creatine Kinase 26 L <20 L Troponin I 0.069 H* 0.063 H* Total Protein Albumin Urine Blood Urine WBC Amorphous Sediment Urine Bacteria 09/14/17 09/14/17 09/14/17 06:04 06:04 06:04 WBC Hgb 11.0 L Hct 33.8 L APTT 58.5 H BUN 19 H Glucose AST 43 H Total Creatine Kinase Troponin I Total Protein 5.4 L Albumin 2.7 L Urine Blood Urine WBC Amorphous Sediment Urine Bacteria Assessment and Plan (1) Posttraumatic vertigo Current Visit: Yes Status: Acute Code(s): R42 - DIZZINESS AND GIDDINESS SNOMED Code(s): 45243747 (2) Cervical vertigo Current Visit: Yes Status: Acute Code(s): R42 - DIZZINESS AND GIDDINESS SNOMED Code(s): 45837017 (3) New onset a-fib Current Visit: Yes Status: Acute Code(s): I48.91 - UNSPECIFIED ATRIAL FIBRILLATION SNOMED Code(s): 92954192 Plan: This patient is a 76-year-old female who was admitted with symptoms of acute dizziness and vertigo that seems to be progressive over the last week. Patient did sustain a fall back in July 2017 and fell onto her buttocks region. Apparently she was jolted and yanked to break her fall and this causes some degree of head and neck trauma. She was placed into a cervical collar which aggravated her symptoms of vertigo. Clinical history suggests possibility of acute labyrinthitis versus cervical vertigo. We have recommended that she be evaluated in the ENT clinic either as inpatient or outpatient for further assessment. She did undergo a computed tomography scan of the brain which revealed no acute intracranial process however there was evidence of right frontal lobe isodense masses suggesting meningiomas. We have recommended an MRI of the brain with gadolinium for further assessment. Patient was sent for CT angiogram of the head and neck today. 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 We have recommended a vascular surgery consultation for further assessment. There was no evidence of any aneurysm. We have reviewed the results of the CAT scan today with the patient. We will arrange for MRI of the brain with and without gadolinium for further assessment. She was seen by cardiology for her atrial fibrillation and has been started on Eliquis. Her overall prognosis at this time remains guarded. Time with Patient: Greater than 30
[2017-09-14] MEDS ORDERED: ACETAMINOPHEN TAB 325 MG TAB PO PRN (17:55)
[2017-09-14] MEDS ORDERED: MORPHINE SULFATE/PF 10MG/10ML VL IVP PRN (17:55)
--- NOTE | 2017-09-14 17:55 | P.HPIM ---
History of Present Illness H&P Date: 09/14/17 This is a pleasant 74-year-old lady patient of Dr. Ledbetter. She has underlying history of diverticular disease hypertension glaucoma comes in with dizziness and unsteady gait for the past 3 weeks since a fall back in December where she landed on her buttocks. Patient states she was placed in a neck collar and stretched her neck leading to pain on the left sided of the neck. Patient experienced multiple episodes of vertigo with change in position of the head towards the left side. She denies any vision change. She denies any tinnitus or hearing loss. Neurology has evaluated the patient and and has recommended MRI of the brain for a possible meningioma seen on the computed tomography scan. CTA neck head and neck was conducted for possible dissection which revealed 75% stenosis of the right ICA for which vascular surgery is consulted. Patient was found to be in atrial fibrillation with RVR with sinus bradycardia with atrial arrhythmia noted on the EKG. Cardiology evaluated the patient and rule out syncope related to sick sinus syndrome. Vertigo likely secondary to labyrinthitis or positional vertigo. Will continue patient on meclizine. PTOT consult. elliquis initiated for atrial fibrillation. Review of Systems Constitutional: Denies chills, Denies fever, Denies lethargy, Denies malaise, Denies poor appetite, Denies weakness, Denies weight loss Eyes: denies decreased vision, denies diplopia, denies discharge, denies pain Ears: deny: decreased hearing Ears, nose, mouth and throat: Denies dental pain, Denies headache, Denies nasal discharge, Denies nose pain Cardiovascular: Denies chest pain, Denies decreased exercise tolerance, Denies edema, Denies high blood pressure, Denies irregular heart beat, Denies palpitations, Denies paroxysmal nocturnal dyspnea, Denies rapid heart beat, Denies shortness of breath Respiratory: Denies congestion, Denies cough, Denies cough with sputum, Denies dyspnea, Denies home oxygen, Denies wheezing Gastrointestinal: Denies abdominal pain, Denies change in bowel habits, Denies coffee ground emesis, Denies early satiety, Denies excessive gas, Denies heartburn, Denies hematemesis, Denies hematochezia, Denies loss of appetite, Denies nausea, Denies vomiting Genitourinary: Denies dysuria, Denies flank pain, Denies kidney stones, Denies menorrhagia, Denies urgency, Denies urinary frequency Musculoskeletal: Denies gait dysfunction, Denies limitation of motion, Denies morning stiffness, Denies muscle cramps Integumentary: Denies rash, Denies wounds, Denies brittle nails, Denies change in hair/nails, Denies darkening of skin Neurological: Endorses balance difficulties, Denies change in speech, Denies double vision, endorses gait dysfunction, Denies loss of vision, Denies motor disturbance, Denies numbness, Denies paralysis, Denies paresthesias, Denies seizures Psychiatric: Denies anxiety, Denies depression Endocrine: Denies excessive sweating, Denies excessive thirst, Denies high blood sugars, Denies palpitations Hematologic/Lymphatic: Denies easy bruising, Denies lymphadenopathy Past Medical History Past Medical History: Hypertension, Osteoarthritis (OA), Pneumonia Additional Past Medical History / Comment(s): glucoma, diverticulitis, BRONCHITIS ,LT EYE CATARACT, PT STATED"HAd RUPTURE ON OPTIC NERVE RT EYE", uti . PT FELL Jul LANDED ON HER BUTT,STATED SHE FELT LIKE SHE DURGA HER BACK. WAS ORDERED A NECK BRACE-WHEN SHE PUT IT ON SHE FELT SOMETHING POP ON THE LT SIDE OF HER NECK.THENSHE STARTED WITH THE DIZZINESS." History of Any Multi-Drug Resistant Organisms: None Reported Past Surgical History: Cholecystectomy, Hysterectomy Additional Past Surgical History / Comment(s): rt cataract sx, injection lt foot Past Anesthesia/Blood Transfusion Reactions: No Reported Reaction Smoking Status: Former smoker - Past Family History Father Family Medical History: Cancer, Congestive Heart Failure (CHF) Additional Family Medical History / Comment(s): ENLARGED HEART Brother(s) Family Medical History: Cancer, Liver Disease Additional Family Medical History / Comment(s): CANCER IN HIS EYE AND IN HIS LIVER. AND 2 OTHER BROTHERS FROM [place] Sister(s) Family Medical History: CVA/TIA Mother Family Medical History: Cancer Additional Family Medical History / Comment(s): BREAST/LUNG CANCER,LEUKEMIA Medications and Allergies Home Medications Medication Instructions Recorded Confirmed Type Brimonidine Tartrate/Timolol 1 drop BOTH EYES BID 08/20/14 09/13/17 History [Combigan 0.2%/0.5% Ophth Soln] Latanoprost Ophth [Xalatan 0.005%] 1 drop BOTH EYES HS 08/20/14 09/13/17 History Losartan/Hydrochlorothiazide 1 tab PO DAILY 08/20/14 09/13/17 History [Hyzaar 100-25 Tablet] Estrogens, Conjugated [Premarin] 0.9 mg PO DAILY 10/29/15 09/13/17 History Meclizine [Antivert] 25 mg PO TID 09/13/17 09/13/17 History Allergies Allergy/AdvReac Type Severity Reaction Status Date / Time Sulfa (Sulfonamide Allergy Unknown Verified 09/13/17 14:35 Antibiotics) Physical Exam Vitals: Vital Signs Temp Pulse Pulse Pulse Pulse Pulse Resp 09/14/17 15:36 97 F L 70 18 09/14/17 11:37 98 F 75 18 09/14/17 07:59 97 F L 71 70 64 18 09/14/17 04:00 64 20 09/14/17 00:00 58 L 16 09/13/17 20:53 96.6 F L 58 L 16 09/13/17 19:24 97.1 F L 60 18 09/13/17 19:07 55 L 16 BP BP BP BP BP Pulse Ox 09/14/17 15:36 124/62 96 09/14/17 11:37 139/75 93 L 09/14/17 07:59 169/74 178/79 120/59 93 L 09/14/17 04:00 106/53 97 09/14/17 00:00 09/13/17 20:53 135/64 09/13/17 19:24 153/70 97 09/13/17 19:07 154/67 97 Intake and Output 09/14/17 09/14/17 09/14/17 06:59 14:59 22:59 Intake Total 324.938 480 Output Total 300 Balance 24.938 480 Intake: Intake, IV Titration 124.938 Amount Heparin Sod,Pork in 0.45% 124.938 NaCl 25,000 unit In 0.45 % NaCl 1 500ml.bag @ 11. 024 UNITS/KG/HR 20 mls/hr IV .Q24H [facility] Rx#: [id number] Oral 200 480 Output: Urine 300 Other: # Voids 1 Weight 93.8 kg - Constitutional General appearance: cooperative, no acute distress, obese - EENT Eyes: anicteric sclerae, PERRLA, normal appearance ENT: hearing grossly normal no nystagmus appreciated. Apley maneuver could not be performed as patient has significant back and neck pain. - Neck Neck: no lymphadenopathy, normal ROM, no other, no rigidity, no stridor, no thyromegaly - Respiratory Respiratory: bilateral: CTA, negative: diminished, dullness, rales, rhonchi - Cardiovascular Rhythm: regular Heart sounds: normal: S1, S2 Abnormal Heart Sounds: no systolic murmur, no diastolic murmur, no rub, no S3 Gallop, no S4 Gallop, no click, no other - Gastrointestinal General gastrointestinal: normal bowel sounds, soft - Integumentary Integumentary: no rash - Neurologic Neurologic: CNII-XII intact - Musculoskeletal Musculoskeletal: gait normal, strength equal bilaterally - Psychiatric Psychiatric: A&O x's 3, appropriate affect Results CBC & Chem 7: 09/14/17 06:04 09/14/17 06:04 Labs: Abnormal Lab Results - Last 24 Hours (Table) 09/13/17 09/13/17 09/14/17 Range/Units 20:00 23:54 01:48 Hgb (11.4-16.0) gm/dL Hct (34.0-46.0) % APTT 35.5 H (22.0-30.0) sec BUN (7-17) mg/dL AST (14-36) U/L Total Creatine Kinase 26 L <20 L (30-135) U/L Troponin I 0.069 H* 0.063 H* (0.000-0.034) ng/mL Total Protein (6.3-8.2) g/dL Albumin (3.5-5.0) g/dL 09/14/17 09/14/17 09/14/17 Range/Units 06:04 06:04 06:04 Hgb 11.0 L (11.4-16.0) gm/dL Hct 33.8 L (34.0-46.0) % APTT 58.5 H (22.0-30.0) sec BUN 19 H (7-17) mg/dL AST 43 H (14-36) U/L Total Creatine Kinase (30-135) U/L Troponin I (0.000-0.034) ng/mL Total Protein 5.4 L (6.3-8.2) g/dL Albumin 2.7 L (3.5-5.0) g/dL Thrombosis Risk Factor Assmnt - DVT/VTE Prophylaxis DVT/VTE Prophylaxis: Pharmacologic Prophylaxis ordered - Choose All That Apply Any of the Below Risk Factors Present?: Yes Each Factor Represents 1 point: Obesity (BMI >25) Other Risk Factors: Yes Each Risk Factor Represents 3 Points: Age 75 years or older Other congenital or acquired thrombophilia - If yes, enter type in comment: No Thrombosis Risk Factor Assessment Total Risk Factor Score: 4 Thrombosis Risk Factor Assessment Level: Moderate Risk Assessment and Plan Plan: 1. Vertigo likely to be related to benign positional vertigo or labyrinthitis. No tinnitus or hearing loss present. We will initiate meclizine for dizziness. Orthostatic negative. Cardiology ruled out cardiogenic syncope. CT scan positive for isodense mass in the right frontal lobe concerning for meningioma. MRI ordered to rule out brain lesions. CTA positive for 75% occlusion in the right ICA. Vascular surgery recommendation pending. ENT follow-up as outpatient 2. New onset atrial fibrillation noted on EKG. Initiated on eliquis 3. History of hypertension currently stable 3. History of total abdominal hysterectomy without bilateral salpingo- oophorectomy for benign reasons 4. History of tobacco use quit in 1993 5. GI prophylaxis and DVT prophylaxis 6. CODE STATUS is full
[2017-09-14] MEDS: LATANOPROST 0.005% OPHTH DROPS 2.5 ML BTL BOTH EYES SCH (21:44)
[2017-09-14] MEDS ORDERED: hydrALAZINE HCL 20 MG/ML 1 ML VIAL IVP PRN (22:28)
[2017-09-14] MEDS ORDERED: LISINOPRIL 10 MG TAB PO SCH (22:30)
[2017-09-15] MEDS: SODIUM CHLORIDE 0.9% 1,000 ML IV SCH (05:20)
[2017-09-15 06:40] LABS: Basophils % (A) 1 %; Eosinophils # (A) 0.1 k/uL (0-0.7); Eosinophils % (A) 2 %; HGB 11.4 gm/dL (11.4-16.0); Lymphocytes % (A) 32 %; MCH 28.6 pg (25.0-35.0); MCHC 33.5 g/dL (31.0-37.0); MCV 85.2 fL (80.0-100.0); Mean Platelet Volume 6.7; Monocytes # (A) 0.5 k/uL (0-1.0); Monocytes % (A) 7 %; Neutrophils # (A) 3.5 k/uL (1.3-7.7); Neutrophils % (A) 56 %; Platelet Count 232 k/uL (150-450); RBC 3.98 m/uL (3.80-5.40); RDW 13.7 % (11.5-15.5); WBC 6.3 k/uL (3.8-10.6)
[2017-09-15 06:48] LABS: ALT 19 U/L (9-52); AST 13 U/L (14-36); Alkaline Phosphatase 82 U/L (38-126); Anion Gap 7 mmol/L; Blood Urea Nitrogen 18 mg/dL (7-17); Calcium 9.1 mg/dL (8.4-10.2); Carbon Dioxide 33 mmol/L (22-30); Chloride 100 mmol/L (98-107); Glucose 82 mg/dL (74-99); Potassium 3.8 mmol/L (3.5-5.1); Sodium 140 mmol/L (137-145); Total Bilirubin 0.3 mg/dL (0.2-1.3); Total Protein 5.8 g/dL (6.3-8.2)
[2017-09-15] MEDS: MECLIZINE 25 MG TAB PO SCH (08:36)
[2017-09-15] MEDS: TIMOLOL 0.5% OPHTH DROPS 5 ML BTL BOTH EYES SCH (08:36)
[2017-09-15] MEDS: APIXABAN 5 MG TAB PO SCH (08:36)
[2017-09-15] MEDS: BRIMONIDINE TARTRATE 0.2% DROPS 5 ML BTL BOTH EYES SCH (08:36)
[2017-09-15] MEDS: LOSARTAN-HCTZ 50-12.5 MG 1 EACH TAB PO SCH (08:36)
[2017-09-15 08:39] VITALS: RESP 18; TEMP 96.1
[2017-09-15] MEDS ORDERED: METOPROLOL TARTRATE 12.5 MG TAB PO SCH (09:30)
[2017-09-15 11:23] VITALS: BP 140/67; PULSE 60
--- NOTE | 2017-09-15 11:30 | MR ---
EXAMINATION TYPE: MR brain wo/w con DATE OF EXAM: 09/15/2017 COMPARISON: NONE HISTORY: Patient with possible right frontal meningiomas TECHNIQUE: Multiplanar, multisequence images of the brain and brainstem is performed without and with IV contras t, utilizing 9 mL intravenous Gadavist . FINDINGS: Diffusion weighted images demonstrate no evidence of a recent infarct or other diffusion ab normality. There is mild to moderate generalized degenerative change. Nonspecific white matter changes are seen diffusely compatible with widespread areas of demyelination or remote ischemia. There is an area of intermediate mixed signal and low signal near the anterior margin of the corpus c allosum within the right frontal lobe suggestive of an area of remote intracranial hemorrhage. Findings suggest a venous angioma within the right parietal lobe. There are multiple extra-axial masses noted. These include the following. 1. High right parietal cerebral convexity mass measuring 1.6 x 1.5 cm. 2. Large extra-axial mass with compression of the right frontal lobe extending along the interhemisph edmund fissure and anterior frontal lobe due to measuring 3.2 x 3.1 cm. 3. 0.7 cm anterior temporal fossa extra-axial mass with minimal anterior compression of the temporal cortex. Midline structures demonstrate normal morphology. The craniocervical junction appears within normal limits. Post contrast images demonstrate no abnormal enhancement. The dural venous sinuses appear p atent. The visualized sinuses are clear and the globes are intact. IMPRESSION: 1. Multiple extra-axial masses as discussed and measured above most compatible with multiple meningio ma. 2. Small less than 1 cm area of mixed signal involving the right frontal lobe suggestive of an area o f remote hemorrhagic infarct or a tiny cavernous angioma. 3. Degenerative change and extensive diffuse white matter changes bilaterally which are nonspecific b ut most typical remote microvascular ischemia.
--- NOTE | 2017-09-15 13:52 | P.PN ---
Subjective Progress Note Date: 09/15/17 Principal diagnosis: Atrial fibrillation This is a 76-year-old female with history of hypertension who presented to the hospital with symptoms of vertigo. She was found to be in atrial fibrillation with a rapid ventricular response and for this reason a cardiology consultation was requested. Subsequently patient converted to normal sinus rhythm. She was seen in consultation yesterday by Dr. Wilson. Patient was initiated on anticoagulation for stroke prevention. She is currently on Eliquis 5 mg one tablet by mouth twice a day. She was also noted to have mild abnormality in her troponin, not consistent with acute coronary syndrome, likely secondary to supply and demand mismatch. An echocardiogram with Doppler study was performed which revealed an ejection fraction of 55-60%. Objective - Vital Signs Vital signs: Vital Signs Temp 96.1 F L 09/15/17 08:36 Pulse 60 09/15/17 11:22 Resp 18 09/15/17 11:22 BP 140/67 09/15/17 11:22 Pulse Ox 95 09/15/17 11:22 Intake & Output 09/14/17 09/15/17 09/15/17 18:59 06:59 18:59 Intake Total 780 360 Balance 780 360 Weight 93 kg Intake: Oral 780 360 Other: # Voids 1 - Exam PHYSICAL EXAMINATION: HEENT: Head is atraumatic, normocephalic. Pupils equal, round. Neck is supple. There is no elevated jugular venous pressure. HEART EXAMINATION: Heart S1, S2 normal. No murmur or gallop heard. CHEST EXAMINATION: Lungs are clear to auscultation and precussion. No chest wall tenderness is noted on palpation or with deep breathing. ABDOMEN: Soft, nontender. Bowel sounds are heard. No organomegaly noted. EXTREMITIES: 2+ peripheral pulses with no evidence of peripheral edema and no calf tenderness noted. NEUROLOGIC patient is awake, alert and oriented -3. . - Labs CBC & Chem 7: 09/15/17 05:54 09/15/17 05:54 Labs: Abnormal Lab Results - Last 24 Hours (Table) 09/15/17 Range/Units 05:54 Carbon Dioxide 33 H (22-30) mmol/L BUN 18 H (7-17) mg/dL AST 13 L (14-36) U/L Total Protein 5.8 L (6.3-8.2) g/dL Albumin 3.0 L (3.5-5.0) g/dL Assessment and Plan Plan: Assessment and plan 1. Vertigo likely to be related to benign positional vertigo or labyrinthitis. 2. New onset atrial fibrillation noted on EKG. Initiated on eliquis 3. History of hypertension currently stable 4. Abnormal troponin, likely secondary to supply and demand mismatch. D-dimer negative. Plan From cardiology's perspective, patient may be able to be discharged home today. We will make her a follow-up appointment to see Dr. Bradford in the office post discharge. DNP note has been reviewed, I agree with a documented findings and plan of care. Patient was seen and examined.
[2017-09-15] MEDS ORDERED: MORPHINE ORAL SOLN 10 MG/5 ML CUP PO PRN (15:33)
== END 2017-09-15 13:19 | disposition home or self-care (01) | DRG 310 ==
LOC: EC 12:42 → 6SEL 17:51
PROVIDERS: ADMIT Internal Medicine; ATTEND Internal Medicine
DX: I48.0 Paroxysmal atrial fibrillation (principal); I65.21 Occlusion and stenosis of right carotid artery; D42.0 Neoplasm of uncertain behavior of cerebral meninges; H81.10 Benign paroxysmal vertigo, unspecified ear; H83.09 Labyrinthitis, unspecified ear; I10 Essential (primary) hypertension; I70.0 Atherosclerosis of aorta; M46.04 Spinal enthesopathy, thoracic region; H26.9 Unspecified cataract; M19.90 Unspecified osteoarthritis, unspecified site; R00.1 Bradycardia, unspecified; R26.81 Unsteadiness on feet; R74.8 Abnormal levels of other serum enzymes; H40.9 Unspecified glaucoma; K57.90 Diverticulosis of intestine, part unspecified, without perforation or abscess without bleeding; H47.091 Other disorders of optic nerve, not elsewhere classified, right eye; Z79.899 Other long term (current) drug therapy; Z88.2 Allergy status to sulfonamides; Z90.710 Acquired absence of both cervix and uterus; Z87.891 Personal history of nicotine dependence; Z90.49 Acquired absence of other specified parts of digestive tract; Z87.01 Personal history of pneumonia (recurrent); Z82.49 Family history of ischemic heart disease and other diseases of the circulatory system
CPT/HCPCS: 36415; 70450; 70496; 70498; 70553; 71046; 80053; 81001; 82550; 82553; 84484; 85025; 85379; 85610; 85730; 93005; 93306; 96374; 99285

== ENCOUNTER → 2017-11-05 | Outpatient (CLI) | payer MEDICARE ==
[2017-11-05 13:23] LABS: HCT 35.7 % (34.0-46.0); HGB 11.7 gm/dL (11.4-16.0); MCH 28.8 pg (25.0-35.0); MCHC 32.9 g/dL (31.0-37.0); MCV 87.7 fL (80.0-100.0); Mean Platelet Volume 6.8; Platelet Count 268 k/uL (150-450); RBC 4.07 m/uL (3.80-5.40); RDW 14.1 % (11.5-15.5); WBC 6.7 k/uL (3.8-10.6)
[2017-11-05 13:38] LABS: Anion Gap 9 mmol/L; Blood Urea Nitrogen 20 mg/dL (7-17); Carbon Dioxide 33 mmol/L (22-30); Chloride 99 mmol/L (98-107); Potassium 4.2 mmol/L (3.5-5.1); Sodium 141 mmol/L (137-145)
== END ==
LOC: LABWHC1 12:36
PROVIDERS: ATTEND Internal Medicine Cardiovascular Disease
DX: Z01.812 Encounter for preprocedural laboratory examination (principal); R94.30 Abnormal result of cardiovascular function study, unspecified
CPT/HCPCS: 36415; 80051; 82565; 84520; 85027

== ENCOUNTER 2017-11-12 06:25 | Day surgery (SDC) | payer MEDICARE ==
[2017-11-04 10:42] VITALS: BMI 43.7
[~2017-11-12 06:25] MED LIST: ALPRAZolam 0.25 MG TAB PO PRN; ASPIRIN 325 MG TAB PO ONE; SODIUM CHLORIDE 0.9% 1,000 ML in EMPTY BAG 1 BAG IV ONE
[2017-11-12 07:02] VITALS: PULSE 72; TEMP 97.7
[2017-11-12] MEDS ORDERED: ISOSORBIDE MONONITRATE ER 30 MG TAB.ER.24H PO STA (07:07)
[2017-11-12] MEDS ORDERED: LOSARTAN-HCTZ 50-12.5 MG 1 EACH TAB PO STA (07:12)
[2017-11-12] MEDS ORDERED: LIDOCAINE 2% INJ 20 MG/ML (20 ML MDV) ONE (07:27)
[2017-11-12] MEDS ORDERED: SODIUM CHLORIDE 0.9% 1,000 ML IV ONE (07:27)
[2017-11-12] MEDS ORDERED: ENALAPRILAT 1.25 MG/ML 1 ML VIAL ONE (07:33)
[2017-11-12] MEDS ORDERED: MIDAZOLAM 2 MG/2 ML VIAL ONE (07:33)
[2017-11-12] MEDS: MIDAZOLAM 2 MG/2 ML VIAL IV ONE ×2 (07:35→07:39)
[2017-11-12] MEDS ORDERED: LIDOCAINE 2% INJ 20 MG/ML SQ ONE (07:37)
[2017-11-12] MEDS ORDERED: ENALAPRILAT 1.25 MG/ML 1 ML VIAL IV ONE (07:37)
[2017-11-12] MEDS ORDERED: IOPAMIDOL-370 125ML BTL INJ ONE (07:47)
[2017-11-12] MEDS ORDERED: RX INFO: IV CONTRAST WAS GIVEN 1 EACH MISC MISCELLANE PRN (07:57)
[2017-11-12] MEDS ORDERED: SODIUM CHLORIDE 0.9% 1,000 ML IV SCH (08:00)
--- NOTE | 2017-11-12 08:36 | CC ---
CARDIAC CATHETERIZATION REPORT Referring physician is Dr. Ledbetter. INDICATION: Elevated troponin with abnormal stress test showing ischemia involving inferior wall. PROCEDURE NOTE: After obtaining informed consent, left heart catheterization and coronary angiogram were performed via the right femoral artery using standard Mary catheters. Patient tolerated the procedure well without any obvious immediate complications. A femoral angiogram was performed and Angio-Seal was deployed for hemostasis. FINDINGS: 1. HEMODYNAMICS: Left ventricular end-diastolic pressure is 8 mm. There is no significant gradient across the aortic valve. 2. LEFT VENTRICULOGRAM: Left ventriculogram is not performed. 3. ANGIOGRAPHIC DATA: 4. Left main coronary artery: Left main coronary artery appears calcified but is free of significant stenosis. Divides into left anterior descending coronary artery and circumflex coronary artery. LAD and its branches, circumflex coronary artery and its branches are free of significant stenosis. They are both heavily calcified. Right coronary artery is a nondominant vessel and is free of significant disease. CONCLUSIONS: 1. 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 2. Nondominant right coronary artery. PLAN: I reviewed angiographic data with the patient and told her that the elevated troponin during her recent hospitalization was probably due to supply-demand mismatch and the stress test is a false positive stress test. Her management is going to be in the form of risk factor modification including optimal control of blood pressure, regular exercise, weight loss and optimal management of cholesterol. . MMMARCO AL / IJN: [id number] /
[2017-11-12 11:41] VITALS: RESP 20
[2017-11-12 14:15] VITALS: BP 137/68
== END 2017-11-12 14:00 | disposition home or self-care (01) ==
LOC: CATHCVL 06:25
PROVIDERS: ATTEND Internal Medicine Cardiovascular Disease
DX: I25.10 Atherosclerotic heart disease of native coronary artery without angina pectoris (principal); I25.84 Coronary atherosclerosis due to calcified coronary lesion; I48.0 Paroxysmal atrial fibrillation; Z79.01 Long term (current) use of anticoagulants; I10 Essential (primary) hypertension; E78.2 Mixed hyperlipidemia; I65.23 Occlusion and stenosis of bilateral carotid arteries; Z82.49 Family history of ischemic heart disease and other diseases of the circulatory system; Z87.891 Personal history of nicotine dependence; Z79.890 Hormone replacement therapy; Z79.899 Other long term (current) drug therapy; Z88.2 Allergy status to sulfonamides
CPT/HCPCS: 93458; C1760; C1769 ×2; C1894; J2001; J2250; Q9967

== ENCOUNTER 2018-01-01 18:26 | Emergency (ER) | payer MEDICARE ==
[2018-01-01 18:38] VITALS: TEMP 98.1
[2018-01-01] MEDS ORDERED: SODIUM CHLORIDE 0.9% 1,000 ML IV STA ×2 (18:49→18:50)
[2018-01-01] MEDS ORDERED: ONDANSETRON ODT 4 MG TAB PO STA (18:49)
[2018-01-01] MEDS ORDERED: diphenhydrAMINE 50 MG/ML 1 ML VIAL IVP STA (18:49)
--- NOTE | 2018-01-01 18:55 | ED ---
Recheck HPI - General Chief Complaint: Recheck/Abnormal Lab/Rx Stated Complaint: HTN/A-fib hx Time Seen by Provider: 01/01/18 18:39 Source: patient, RN notes reviewed, old records reviewed Mode of arrival: wheelchair Limitations: physical limitation - History of Present Illness Initial Comments: This Patient is 77-year-old female history of hypertension and A. fib presents emergency room today with episodes of elevated blood pressure. She reports that this morning when she took her blood pressure her initial BP was 160/99. Patient states that she did have a headache when this was occurring. She reports no weakness. No neurological deficits. Patient has had no chest pain or shortness of breath. She is on Elquis with a history of A. fib. Patient has had no recent fever or chills, denies any nausea or vomiting. She reports she has a frontal headache. She did take a sinus medication, Zyrtec earlier today when she symptoms are most likely related to sinusitis and ALLERGIES.Patient denies any recent fever, chills, shortness of breath, chest pain, back pain, abdominal pain, nausea vomiting, numbness or tingling, dysuria or hematuria, constipation or diarrhea, visual changes, or any other current symptoms - Related Data Home Medications Medication Instructions Recorded Confirmed Brimonidine Tartrate/Timolol 1 drop BOTH EYES BID 08/20/14 11/04/17 [Combigan 0.2%/0.5% Ophth Soln] Latanoprost Ophth [Xalatan 0.005%] 1 drop BOTH EYES HS 08/20/14 11/04/17 Losartan/Hydrochlorothiazide 1 tab PO DAILY 08/20/14 11/04/17 [Hyzaar 100-25 Tablet] Estrogens, Conjugated [Premarin] 0.9 mg PO DAILY 10/29/15 11/04/17 Isosorbide Mononitrate [Isosorbide 30 mg PO DAILY 11/04/17 11/04/17 Mononitrate ER] Previous Rx's Medication Instructions Recorded Apixaban [Eliquis] 5 mg PO BID #60 tab 09/15/17 Atorvastatin [Lipitor] 40 mg PO HS #30 tablet 09/15/17 Allergies Allergy/AdvReac Type Severity Reaction Status Date / Time Sulfa (Sulfonamide Allergy Unknown Verified 01/01/18 18:37 Antibiotics) Review of Systems ROS Statement: Those systems with pertinent positive or pertinent negative responses have been documented in the HPI. ROS Other: All systems not noted in ROS Statement are negative. 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" and "meningiomas 3 on brain" History of Any Multi-Drug Resistant Organisms: None Reported Past Surgical History: Cholecystectomy, Heart Catheterization, Hysterectomy Additional Past Surgical History / Comment(s): rt cataract sx, injection lt foot Past Anesthesia/Blood Transfusion Reactions: No Reported Reaction Past Psychological History: No Psychological Hx Reported Smoking Status: Former smoker Past Alcohol Use History: Occasional Past Drug Use History: None Reported - Past Family History Father Family Medical History: Cancer, Congestive Heart Failure (CHF) Additional Family Medical History / Comment(s): ENLARGED HEART Brother(s) Family Medical History: Cancer, Liver Disease Additional Family Medical History / Comment(s): CANCER IN HIS EYE AND IN HIS LIVER. AND 2 OTHER BROTHERS FROM MD'S Sister(s) Family Medical History: CVA/TIA Mother Family Medical History: Cancer Additional Family Medical History / Comment(s): BREAST/LUNG CANCER,LEUKEMIA General Exam - General Exam Comments Initial Comments: Patient is a well-appearing 77-year-old female. Alert and oriented. No acute distress. Limitations: physical limitation General appearance: alert, in no apparent distress Head exam: Present: atraumatic, normocephalic, normal inspection Eye exam: Present: normal appearance, PERRL, EOMI. Absent: scleral icterus, conjunctival injection, periorbital swelling ENT exam: Present: normal exam, mucous membranes moist Neck exam: Present: normal inspection. Absent: tenderness, meningismus, lymphadenopathy Respiratory exam: Present: normal lung sounds bilaterally. Absent: respiratory distress, wheezes, rales, rhonchi, stridor Cardiovascular Exam: Present: regular rate, normal rhythm, normal heart sounds. Absent: systolic murmur, diastolic murmur, rubs, gallop, clicks GI/Abdominal exam: Present: soft, normal bowel sounds. Absent: distended, tenderness, guarding, rebound, rigid Extremities exam: Present: normal inspection, full ROM, normal capillary refill. Absent: tenderness, pedal edema, joint swelling, calf tenderness Back exam: Present: normal inspection Neurological exam: Present: alert, oriented X3, CN II-XII intact Expanded Patient oriented to: Present: person, place, time Speech: Present: fluid speech Cranial nerves: EOM's Intact: Normal Cerebellar function: Finger to Nose: Normal Upper motor neuron: Adis Neglect: Normal Sensory exam: Upper Extremity Light Touch: Normal, Lower Extremity Light Touch: Normal Motor strength exam: RUE: 5, LUE: 5, RLE: 5, LLE: 5 Eye Response: (4) open spontaneously Motor Response: (6) obeys commands Verbal Response: (5) oriented Augusto Total: 15 Psychiatric exam: Present: normal affect, normal mood Skin exam: Present: warm, dry, intact, normal color. Absent: rash Course Vital Signs 01/01/18 01/01/18 18:34 19:33 Temperature 98.1 F Pulse Rate 75 67 Respiratory 18 15 Rate Blood Pressure 154/76 152/67 O2 Sat by Pulse 98 98 Oximetry Medical Decision Making - Medical Decision Making 69-year-old female present with episodes of headache today as well as isolated elevated blood pressure readings at 160/90.Pressure is 152/67. She denies any chest pain or any other symptoms besides mild headache at this time. She was given Benadryl Zofran and IV fluids. Patient's blood work was reviewed and normal. Negative troponin. Kidney function stable. Chest x-ray was reviewed and shows no significant rales. CT of the brain tissue no acute treatment hemorrhage or midline shift. There is some diffuse throughout.. There is also scattered meningiomas. These are stable from her previous MRIs and CT scans 2 months ago. Patient is reevaluated states she feels much better and would like to go home at this time. No neurological deficits or any other symptoms. Discussed with normal lab work, EKG and other testing that she can be discharged home. Discussed checking her blood pressure periodically throughout the day. She felt with her PCP in regards to changing her blood pressure medications. - Lab Data Result diagrams: 01/01/18 19:04 01/01/18 19:04 Lab Results 01/01/18 01/01/18 01/01/18 Range/Units 19:04 19:04 19:04 WBC 7.1 (3.8-10.6) k/uL RBC 4.15 (3.80-5.40) m/uL Hgb 12.3 (11.4-16.0) gm/dL Hct 36.4 (34.0-46.0) % MCV 87.7 (80.0-100.0) fL MCH 29.7 (25.0-35.0) pg MCHC 33.9 (31.0-37.0) g/dL RDW 16.2 H (11.5-15.5) % Plt Count 274 (150-450) k/uL Neutrophils % 53 % Lymphocytes % 36 % Monocytes % 7 % Eosinophils % 2 % Basophils % 0 % Neutrophils # 3.8 (1.3-7.7) k/uL Lymphocytes # 2.5 (1.0-4.8) k/uL Monocytes # 0.5 (0-1.0) k/uL Eosinophils # 0.2 (0-0.7) k/uL Basophils # 0.0 (0-0.2) k/uL Anisocytosis Slight PT (9.0-12.0) sec INR (<1.2) APTT (22.0-30.0) sec Sodium 139 (137-145) mmol/L Potassium 3.6 (3.5-5.1) mmol/L Chloride 103 (98-107) mmol/L Carbon Dioxide 29 (22-30) mmol/L Anion Gap 7 mmol/L BUN 21 H (7-17) mg/dL Creatinine 0.70 (0.52-1.04) mg/dL Est GFR (CKD-EPI)AfAm >90 (>60 ml/min/1.73 sqM) Est GFR (CKD-EPI)NonAf 83 (>60 ml/min/1.73 sqM) Glucose 104 H (74-99) mg/dL Calcium 9.1 (8.4-10.2) mg/dL Magnesium 1.7 (1.6-2.3) mg/dL Total Bilirubin 0.3 (0.2-1.3) mg/dL AST 18 (14-36) U/L ALT 23 (9-52) U/L Alkaline Phosphatase 104 (38-126) U/L Total Creatine Kinase 28 L (30-135) U/L CK-MB (CK-2) 1.2 (0.0-2.4) ng/mL CK-MB (CK-2) Rel Index 4.3 Troponin I <0.012 (0.000-0.034) ng/mL Total Protein 6.5 (6.3-8.2) g/dL Albumin 3.5 (3.5-5.0) g/dL 01/01/18 Range/Units 19:04 WBC (3.8-10.6) k/uL RBC (3.80-5.40) m/uL Hgb (11.4-16.0) gm/dL Hct (34.0-46.0) % MCV (80.0-100.0) fL MCH (25.0-35.0) pg MCHC (31.0-37.0) g/dL RDW (11.5-15.5) % Plt Count (150-450) k/uL Neutrophils % % Lymphocytes % % Monocytes % % Eosinophils % % Basophils % % Neutrophils # (1.3-7.7) k/uL Lymphocytes # (1.0-4.8) k/uL Monocytes # (0-1.0) k/uL Eosinophils # (0-0.7) k/uL Basophils # (0-0.2) k/uL Anisocytosis PT 9.7 (9.0-12.0) sec INR 1.0 (<1.2) APTT 27.3 (22.0-30.0) sec Sodium (137-145) mmol/L Potassium (3.5-5.1) mmol/L Chloride (98-107) mmol/L Carbon Dioxide (22-30) mmol/L Anion Gap mmol/L BUN (7-17) mg/dL Creatinine (0.52-1.04) mg/dL Est GFR (CKD-EPI)AfAm (>60 ml/min/1.73 sqM) Est GFR (CKD-EPI)NonAf (>60 ml/min/1.73 sqM) Glucose (74-99) mg/dL Calcium (8.4-10.2) mg/dL Magnesium (1.6-2.3) mg/dL Total Bilirubin (0.2-1.3) mg/dL AST (14-36) U/L ALT (9-52) U/L Alkaline Phosphatase (38-126) U/L Total Creatine Kinase (30-135) U/L CK-MB (CK-2) (0.0-2.4) ng/mL CK-MB (CK-2) Rel Index Troponin I (0.000-0.034) ng/mL Total Protein (6.3-8.2) g/dL Albumin (3.5-5.0) g/dL 01/01/18 19:59 EKG shows sinus rhythm with marked sinus arrhythmia. The which is curious. Septal infarct age undetermined. Abnormal EKG noted. Ventricular rate 60 beats were minute. Most 182 ms. QRS duration 66 most seconds. QT QTC 36/410 ms. Noticed this elevation or T-wave inversion. - Radiology Data Radiology results: report reviewed No acute intra-female hemorrhage midline shift. Mild diffuse age-related cerebral atrophy moderately advanced chronic small vessel ischemic changes well scattered meningiomas including, 3 cm frontal meningioma male redemonstrated without significant changes. Disposition Clinical Impression: Systolic hypertension, isolated, Headache Disposition: HOME SELF-CARE Condition: Good Instructions: Hypertension (ED) Additional Instructions: Patient has follow up with primary care physician. Motrin Tylenol for pain. Pressure stays hydrated. Check blood pressure throughout the day. Return to the emergency department if any alarming signs or symptoms occur. Is patient prescribed a controlled substance at d/c from ED?: No When asked, does pt state using other controlled substances?: No If prescribed controlled substance>3 days was MAPS reviewed?: No If opioid is for acute pain is fill amount 7 days or less?: No If Rx opioid, was Start Talking consent form obtained?: No Referrals: Justus Ledbetter DO [Primary Care Provider] - 1-2 days Time of Disposition: 21:02
--- NOTE | 2018-01-01 19:31 | CT ---
EXAMINATION TYPE: CT brain wo con DATE OF EXAM: 01/01/2018 HISTORY: Frontal headache CT DLP: 1054.2 mGycm. Automated Exposure Control for Dose Reduction was Utilized. TECHNIQUE: CT scan of the head is performed without contrast. COMPARISON: CT brain September 14, 2017. MRI brain September 15, 2017 FINDINGS: There is no acute intracranial hemorrhage or midline shift identified. There is diffuse v entricular and sulcal prominence consistent with diffuse age-related cerebral atrophy. There is low- attenuation in the periventricular white matter consistent with chronic small vessel ischemic change. There is redemonstration 2.8 cm right frontal lobe hyperdense mass axial image 24 consistent with la rge meningioma. Local mass effect is present.. Smaller 1.5 cm higher right frontal peripheral meningi praful axial image 38 redemonstrated. Smaller meningioma right anterior temporal region MRI is less well -seen on CT The globes are intact and the visualized sinuses are clear. IMPRESSION: No acute intracranial hemorrhage or midline shift. There is mild diffuse age-related ce rebral atrophy and moderate to advanced chronic small vessel ischemic change as well as scattered men ingiomas including dominant 3 cm right frontal meningioma all redemonstrated without significant inte rval change.
--- NOTE | 2018-01-01 19:32 | XR ---
EXAMINATION TYPE: XR chest 2V DATE OF EXAM: 01/01/2018 COMPARISON: Chest x-ray September 13, 2017 HISTORY: History of hypertension and atrial fibrillation with chest pain TECHNIQUE: Frontal and lateral views of the chest are obtained. FINDINGS: There is no focal air space opacity, pleural effusion, or pneumothorax seen. The cardiac silhouette size is within normal limits. The osseous structures are intact. IMPRESSION: No acute cardiopulmonary process. No significant change from prior.
[2018-01-01 19:48] LABS: Anisocytosis Slight; Basophils % (A) 0 %; Eosinophils # (A) 0.2 k/uL (0-0.7); Eosinophils % (A) 2 %; HCT 36.4 % (34.0-46.0); HGB 12.3 gm/dL (11.4-16.0); Lymphocytes # (A) 2.5 k/uL (1.0-4.8); Lymphocytes % (A) 36 %; MCH 29.7 pg (25.0-35.0); MCHC 33.9 g/dL (31.0-37.0); MCV 87.7 fL (80.0-100.0); Mean Platelet Volume 6.8; Monocytes # (A) 0.5 k/uL (0-1.0); Monocytes % (A) 7 %; Neutrophils # (A) 3.8 k/uL (1.3-7.7); Neutrophils % (A) 53 %; Platelet Count 274 k/uL (150-450); RBC 4.15 m/uL (3.80-5.40); RDW 16.2 % (11.5-15.5); WBC 7.1 k/uL (3.8-10.6)
[2018-01-01 19:53] LABS: Partial Thromboplastin Time 27.3 sec (22.0-30.0); Prothrombin Time 9.7 sec (9.0-12.0)
[2018-01-01 20:02] LABS: ALT 23 U/L (9-52); AST 18 U/L (14-36); Albumin 3.5 g/dL (3.5-5.0); Alkaline Phosphatase 104 U/L (38-126); Anion Gap 7 mmol/L; Blood Urea Nitrogen 21 mg/dL (7-17); Calcium 9.1 mg/dL (8.4-10.2); Carbon Dioxide 29 mmol/L (22-30); Chloride 103 mmol/L (98-107); Glucose 104 mg/dL (74-99); Magnesium 1.7 mg/dL (1.6-2.3); Potassium 3.6 mmol/L (3.5-5.1); Sodium 139 mmol/L (137-145); Total Bilirubin 0.3 mg/dL (0.2-1.3); Total Protein 6.5 g/dL (6.3-8.2)
[2018-01-01 20:27] LABS: Creatine Kinase 28 U/L (30-135)
[2018-01-01 20:39] LABS: Creatine Kinase MB 1.2 ng/mL (0.0-2.4); Troponin I <0.012 ng/mL (0.000-0.034)
[2018-01-01 21:13] VITALS: BP 158/78; PULSE 70; RESP 16
== END 2018-01-01 21:21 | disposition home or self-care (01) ==
LOC: EC 18:26
DX: I10 Essential (primary) hypertension (principal); R51 Headache; I48.91 Unspecified atrial fibrillation; D32.0 Benign neoplasm of cerebral meninges; H40.9 Unspecified glaucoma; R40.2142 Coma scale, eyes open, spontaneous, at arrival to emergency department; R40.2252 Coma scale, best verbal response, oriented, at arrival to emergency department; R40.2362 Coma scale, best motor response, obeys commands, at arrival to emergency department; Z95.818 Presence of other cardiac implants and grafts; Z87.891 Personal history of nicotine dependence; Z79.890 Hormone replacement therapy; Z79.899 Other long term (current) drug therapy; Z88.2 Allergy status to sulfonamides; Z53.8 Procedure and treatment not carried out for other reasons
CPT/HCPCS: 99284; 96374; 96361 ×2; 36415; 93005; 80053; 82550; 82553; 83735; 84484; 85025; 85610; 85730; 71046; 70450; J1200

== ENCOUNTER → 2018-05-10 | Outpatient (CLI) | payer MEDICARE ==
--- NOTE | 2018-05-10 15:10 | MR ---
EXAMINATION TYPE: MR brain wo/w con DATE OF EXAM: 05/10/2018 COMPARISON: MRI brain September 15, 2017 HISTORY: F/U meningioma TECHNIQUE: Multiplanar, multisequence images of the brain and brainstem is performed without and with IV contras t, utilizing 9 mL intravenous Gadavist . FINDINGS: Diffusion weighted images demonstrate no evidence of a recent infarct or other diffusion ab normality. There is no worrisome extra-axial fluid collection. There is diffuse ventricular and sulc al prominence consistent with diffuse cerebral atrophy there are focal and confluent areas of T2 hype rintensity seen throughout the white matter bilaterally most prominent periventricular regions redemo nstrated. Small focus of remote hemorrhage or hemorrhagic infarct right frontal periventricular regio n with artifact axial image 21 is redemonstrated. Midline structures demonstrate normal morphology. The craniocervical junction appears within normal limits. Post contrast images redemonstrate extra-axial homogeneous enhancing right frontal mass measuring 3.4 cm AP diameter by 3.2 cm transversely axial image 19 x 3.8 cm craniocaudal dimension sagittal image 83 consistent with large meningioma, measurements are larger than obtained on prior study. Local mass effect is redemonstrated. Lesion extends just left of midline axial image 18 similar to prior study. Lesion is just anterior to the genu of corpus callosum. There is stable smaller 1.7 x 1.5 x 1.4 cm h igher lateral right frontal extra-axial mass or meningioma on axial image 27 and sagittal image 110 n ot significantly changed from prior. There is scattered smaller 8 x 6 x 8 mm extra-axial enhancing ma ss probable meningioma anterior right middle cranial fossa at superior temporal region axial image 13 and sagittal image 105. No new enhancing lesions are seen. The dural venous sinuses appear patent. The visualized sinuses are clear. Thinning of right lens in globe is redemonstrated possible cataract. IMPRESSION: 3 extra-axial masses or meningiomas redemonstrated. Largest lesion right frontal lobe mack ears perhaps slightly larger in size versus prior study. Other lesions appear stable. Background of m ild to moderate diffuse cerebral atrophy and fairly advanced chronic small vessel ischemic change red emonstrated without significant interval change.
== END | disposition home or self-care (01) ==
LOC: RADMRIMAIN 13:14
PROVIDERS: ATTEND Neurological Surgery
DX: D32.0 Benign neoplasm of cerebral meninges (principal); R90.89 Other abnormal findings on diagnostic imaging of central nervous system; I63.9 Cerebral infarction, unspecified
CPT/HCPCS: 82565; 70553; 36415; A9585

== ENCOUNTER → 2018-06-06 | Outpatient (CLI) | payer MEDICARE ==
--- NOTE | 2018-06-07 11:24 | MM ---
Reason for exam: screening (asymptomatic). Last mammogram was performed 1 year and 9 months ago. History: Patient is postmenopausal. Family history of breast cancer in aunt, premenopausal breast cancer in mother, and breast cancer in paternal aunt. Taking estrogen for 30 years 2 months. Taking progesterone for 30 years 2 months. Physical Findings: A clinical breast exam by your physician is recommended on an annual basis and results should be correlated with mammographic findings. MG 3D Screening Mammo W/Cad Bilateral CC and MLO view(s) were taken. Prior study comparison: August 25, 2016, bilateral MG 3d screening mammo w/cad. August 08, 2015, bilateral MG 3d diag mammo w/cad DESTINI. There are scattered fibroglandular densities. No suspicious abnormality. No significant changes when compared with prior studies. ASSESSMENT: Negative, BI-RAD 1 RECOMMENDATION: Routine screening mammogram of both breasts in 1 year.
== END | disposition home or self-care (01) ==
LOC: RADMAMWWP 10:57
PROVIDERS: ATTEND Family Medicine
DX: Z12.31 Encounter for screening mammogram for malignant neoplasm of breast (principal)
CPT/HCPCS: 77063; 77067

== ENCOUNTER 2018-08-08 20:11 | Emergency (ER) | payer MEDICARE ==
[2018-08-08 21:49] LABS: Basophils % (A) 0 %; Eosinophils # (A) 0.1 k/uL (0-0.7); Eosinophils % (A) 1 %; HCT 33.1 % (34.0-46.0); HGB 10.9 gm/dL (11.4-16.0); Lymphocytes # (A) 2.6 k/uL (1.0-4.8); Lymphocytes % (A) 23 %; MCH 28.9 pg (25.0-35.0); MCV 87.8 fL (80.0-100.0); Mean Platelet Volume 7.3; Monocytes # (A) 0.6 k/uL (0-1.0); Monocytes % (A) 6 %; Neutrophils # (A) 7.8 k/uL (1.3-7.7); Neutrophils % (A) 69 %; Platelet Count 261 k/uL (150-450); RBC 3.77 m/uL (3.80-5.40); RDW 15.4 % (11.5-15.5); WBC 11.4 k/uL (3.8-10.6)
[2018-08-08 21:57] LABS: ALT 22 U/L (9-52); AST 16 U/L (14-36); Alkaline Phosphatase 88 U/L (38-126); Anion Gap 6 mmol/L; Blood Urea Nitrogen 20 mg/dL (7-17); Carbon Dioxide 31 mmol/L (22-30); Chloride 100 mmol/L (98-107); Glucose 125 mg/dL (74-99); Potassium 4.4 mmol/L (3.5-5.1); Sodium 137 mmol/L (137-145); Total Bilirubin 0.5 mg/dL (0.2-1.3); Total Protein 6.1 g/dL (6.3-8.2)
[2018-08-08] MEDS ORDERED: ACETAMINOPHEN TAB 325 MG TAB PO STA (22:23)
--- NOTE | 2018-08-08 22:31 | ED ---
Fever HPI - General Chief Complaint: Fever Stated Complaint: Fever, brain surgery on Time Seen by Provider: 08/08/18 22:04 Source: patient Mode of arrival: wheelchair Limitations: no limitations - History of Present Illness Initial Comments: This patient is 77-year-old woman who presents to be evaluated for a fever. She states that she had a fever to 101.7 at home. She states that she was instructed by the on-call physician that she had spoken with to be seen in the emergency department. The patient's history is notable for having had a recent right frontal craniotomy for resection of cerebral meningiomas.Performed by Dr. Vasquez, at [facility] was [place]. Surgery was 5 days ago. The patient is denying symptoms of infection, other than having the fever. She denies sore throat or sinus congestion. She states she has a chronic cough that has not changed. she denies headache or neck stiffness. No change in urination or bowel movements. No rash. She has not had any drainage from the surgical site. MD Complaint: fever -: hour(s) Temperature Source: oral Context: recent procedure Treatments Prior to Arrival: none - Related Data Home Medications Medication Instructions Recorded Confirmed Brimonidine Tartrate/Timolol 1 drop BOTH EYES BID 08/20/14 08/08/18 [Combigan 0.2%/0.5% Ophth Soln] Latanoprost Ophth [Xalatan 0.005%] 1 drop BOTH EYES HS 08/20/14 08/08/18 Losartan/Hydrochlorothiazide 1 tab PO DIRECTED 08/20/14 08/08/18 [Hyzaar 100-25 Tablet] Estrogens, Conjugated [Premarin] 0.9 mg PO DIRECTED 10/29/15 08/08/18 Acetaminophen Tab [Tylenol Tab] 1,000 mg PO Q4H PRN 08/08/18 08/08/18 Apixaban [Eliquis] 5 mg PO DIRECTED 08/08/18 08/08/18 Aspirin 81 mg PO DAILY 08/08/18 08/08/18 levETIRAcetam [Keppra] 500 mg PO BID 08/08/18 08/08/18 Previous Rx's Medication Instructions Recorded Atorvastatin [Lipitor] 40 mg PO HS #30 tablet 09/15/17 Allergies Allergy/AdvReac Type Severity Reaction Status Date / Time Sulfa (Sulfonamide Allergy Unknown Verified 08/08/18 22:03 Antibiotics) Childhood Review of Systems ROS Statement: Those systems with pertinent positive or pertinent negative responses have been documented in the HPI. ROS Other: All systems not noted in ROS Statement are negative. Constitutional: Reports: as per HPI, fever. Denies: chills, weakness Eyes: Denies: eye pain, vision change ENT: Denies: ear pain, throat pain, congestion Respiratory: Reports: as per HPI, cough (Chronic). Denies: dyspnea, wheezes Cardiovascular: Denies: chest pain, edema, syncope Gastrointestinal: Denies: abdominal pain, nausea, vomiting, diarrhea Genitourinary: Denies: dysuria, frequency, hematuria Musculoskeletal: Denies: back pain Skin: Denies: rash Neurological: Denies: headache, weakness, numbness, paresthesias, confusion 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" and "meningiomas 3 on brain" History of Any Multi-Drug Resistant Organisms: None Reported Past Surgical History: Cholecystectomy, Heart Catheterization, Hysterectomy Additional Past Surgical History / Comment(s): rt cataract sx, injection lt foot , menigiomas removed, Past Anesthesia/Blood Transfusion Reactions: No Reported Reaction Past Psychological History: No Psychological Hx Reported Smoking Status: Former smoker Past Alcohol Use History: Occasional Past Drug Use History: None Reported - Past Family History Father Family Medical History: Cancer, Congestive Heart Failure (CHF) Additional Family Medical History / Comment(s): ENLARGED HEART Brother(s) Family Medical History: Cancer, Liver Disease Additional Family Medical History / Comment(s): CANCER IN HIS EYE AND IN HIS LIVER. AND 2 OTHER BROTHERS FROM AL'S Sister(s) Family Medical History: CVA/TIA Mother Family Medical History: Cancer Additional Family Medical History / Comment(s): BREAST/LUNG CANCER,LEUKEMIA General Exam Limitations: no limitations General appearance: alert, in no apparent distress Head exam: Present: normocephalic, other (The patient has a curvilinear surgical incision to the frontal scalp parking around to the right parietal. The incision is closed with rhina that are intact. There is no drainage. There may be some minimal warmth associated but there is no erythema.) Eye exam: Present: normal appearance. Absent: scleral icterus, conjunctival injection ENT exam: Present: normal oropharynx, mucous membranes moist Neck exam: Present: full ROM. Absent: tenderness, meningismus, lymphadenopathy Respiratory exam: Present: normal lung sounds bilaterally. Absent: respiratory distress, wheezes, rales, rhonchi, stridor Cardiovascular Exam: Present: regular rate, normal rhythm, normal heart sounds. Absent: systolic murmur, diastolic murmur, rubs, gallop GI/Abdominal exam: Present: soft. Absent: distended, tenderness, guarding, rebound, rigid Extremities exam: Present: normal inspection, normal capillary refill. Absent: pedal edema, calf tenderness Back exam: Present: normal inspection. Absent: CVA tenderness (R), CVA tenderness (L) Neurological exam: Present: alert Skin exam: Present: warm, dry, intact, normal color. Absent: rash Course Vital Signs 08/08/18 20:15 Temperature 99.7 F H Pulse Rate 111 H Respiratory 18 Rate Blood Pressure 144/81 O2 Sat by Pulse 94 L Oximetry Medical Decision Making - Medical Decision Making Patient is 77-year-old woman who had fever at home, found to have borderline temperature here. She is now 4 days postoperative, the case therefore discussed with her neurosurgeon's covering physician, at [phone]. At this point they request that the patient have close follow-up. They would like her to call back in the morning. - Lab Data Result diagrams: 08/08/18 21:27 08/08/18 21:27 Lab Results 08/08/18 08/08/18 08/08/18 Range/Units 21:27 21:27 21:27 WBC 11.4 H (3.8-10.6) k/uL RBC 3.77 L (3.80-5.40) m/uL Hgb 10.9 L (11.4-16.0) gm/dL Hct 33.1 L (34.0-46.0) % MCV 87.8 (80.0-100.0) fL MCH 28.9 (25.0-35.0) pg MCHC 33.0 (31.0-37.0) g/dL RDW 15.4 (11.5-15.5) % Plt Count 261 (150-450) k/uL Neutrophils % 69 % Lymphocytes % 23 % Monocytes % 6 % Eosinophils % 1 % Basophils % 0 % Neutrophils # 7.8 H (1.3-7.7) k/uL Lymphocytes # 2.6 (1.0-4.8) k/uL Monocytes # 0.6 (0-1.0) k/uL Eosinophils # 0.1 (0-0.7) k/uL Basophils # 0.0 (0-0.2) k/uL Sodium 137 (137-145) mmol/L Potassium 4.4 (3.5-5.1) mmol/L Chloride 100 (98-107) mmol/L Carbon Dioxide 31 H (22-30) mmol/L Anion Gap 6 mmol/L BUN 20 H (7-17) mg/dL Creatinine 0.67 (0.52-1.04) mg/dL Est GFR (CKD-EPI)AfAm >90 (>60 ml/min/1.73 sqM) Est GFR (CKD-EPI)NonAf 85 (>60 ml/min/1.73 sqM) Glucose 125 H (74-99) mg/dL Plasma Lactic Acid Russell 0.7 (0.7-2.0) mmol/L Calcium 9.0 (8.4-10.2) mg/dL Total Bilirubin 0.5 (0.2-1.3) mg/dL AST 16 (14-36) U/L ALT 22 (9-52) U/L Alkaline Phosphatase 88 (38-126) U/L Total Protein 6.1 L (6.3-8.2) g/dL Albumin 3.0 L (3.5-5.0) g/dL Urine Color Urine Appearance (Clear) Urine pH (5.0-8.0) Ur Specific [place] (1.001-1.035) Urine Protein (Negative) Urine Glucose (UA) (Negative) Urine Ketones (Negative) Urine Blood (Negative) Urine Nitrite (Negative) Urine Bilirubin (Negative) Urine Urobilinogen (<2.0) mg/dL Ur Leukocyte Esterase (Negative) Urine RBC (0-5) /hpf Ur Squamous Epith Cells (0-4) /hpf Urine Bacteria (None) /hpf Influenza Type A RNA (Not Detectd) Influenza Type B (PCR) (Not Detectd) 08/08/18 08/08/18 Range/Units 22:40 22:50 WBC (3.8-10.6) k/uL RBC (3.80-5.40) m/uL Hgb (11.4-16.0) gm/dL Hct (34.0-46.0) % MCV (80.0-100.0) fL MCH (25.0-35.0) pg MCHC (31.0-37.0) g/dL RDW (11.5-15.5) % Plt Count (150-450) k/uL Neutrophils % % Lymphocytes % % Monocytes % % Eosinophils % % Basophils % % Neutrophils # (1.3-7.7) k/uL Lymphocytes # (1.0-4.8) k/uL Monocytes # (0-1.0) k/uL Eosinophils # (0-0.7) k/uL Basophils # (0-0.2) k/uL Sodium (137-145) mmol/L Potassium (3.5-5.1) mmol/L Chloride (98-107) mmol/L Carbon Dioxide (22-30) mmol/L Anion Gap mmol/L BUN (7-17) mg/dL Creatinine (0.52-1.04) mg/dL Est GFR (CKD-EPI)AfAm (>60 ml/min/1.73 sqM) Est GFR (CKD-EPI)NonAf (>60 ml/min/1.73 sqM) Glucose (74-99) mg/dL Plasma Lactic Acid Russell (0.7-2.0) mmol/L Calcium (8.4-10.2) mg/dL Total Bilirubin (0.2-1.3) mg/dL AST (14-36) U/L ALT (9-52) U/L Alkaline Phosphatase (38-126) U/L Total Protein (6.3-8.2) g/dL Albumin (3.5-5.0) g/dL Urine Color Light Yellow Urine Appearance Clear (Clear) Urine pH 7.0 (5.0-8.0) Ur Specific [place] 1.009 (1.001-1.035) Urine Protein Negative (Negative) Urine Glucose (UA) Negative (Negative) Urine Ketones Negative (Negative) Urine Blood Small H (Negative) Urine Nitrite Positive H (Negative) Urine Bilirubin Negative (Negative) Urine Urobilinogen <2.0 (<2.0) mg/dL Ur Leukocyte Esterase Small H (Negative) Urine RBC <1 (0-5) /hpf Ur Squamous Epith Cells 1 (0-4) /hpf Urine Bacteria Rare H (None) /hpf Influenza Type A RNA Not Detected (Not Detectd) Influenza Type B (PCR) Not Detected (Not Detectd) Disposition Clinical Impression: Visit for wound check Disposition: HOME SELF-CARE Condition: Good Instructions (If sedation given, give patient instructions): Fever in Adults ( ED), Acute Wound Care (ED) Is patient prescribed a controlled substance at d/c from ED?: No Referrals: Justus Ledbetter DO [Primary Care Provider] - 1-2 days
[2018-08-08 23:11] LABS: Appearance,Urine Clear (Clear); Bacteria,Urine Rare /hpf; Bilirubin,Urine Negative (Negative); Blood,Urine Small (Negative); Color,Urine Light Yellow; Glucose,Urine (UA) Negative (Negative); Ketones,Urine Negative (Negative); Leukocyte Esterase,Urine Small (Negative); Nitrite,Urine Positive (Negative); Protein,Urine Negative (Negative); RBC,Urine <1 /hpf (0-5); Specific Gravity,Urine 1.009 (1.001-1.035); Squamous Epithelial Cell,Urine 1 /hpf (0-4); Urobilinogen,Urine <2.0 mg/dL (<2.0)
--- NOTE | 2018-08-08 23:26 | XR ---
EXAM: XR Chest, 2 Views CLINICAL HISTORY: ITS.REASON XR Reason: Pain TECHNIQUE: Frontal and lateral views of the chest. COMPARISON: Chest x-ray dated 01/01/2018. FINDINGS: Lungs: Mild presumed atelectasis in both lung bases. The lungs are otherwise clear. Pleural space: Unremarkable. No pneumothorax. Heart: Mild cardiomegaly. Mediastinum: Unremarkable. Bones/joints: Mild degenerative changes of the thoracic spine. IMPRESSION: No acute findings.
[2018-08-09 00:23] VITALS: BP 138/91; PULSE 105; RESP 20; TEMP 99.8
== END 2018-08-09 00:23 | disposition home or self-care (01) ==
LOC: EC 20:11
DX: Z48.811 Encounter for surgical aftercare following surgery on the nervous system (principal); R05 Cough; I48.91 Unspecified atrial fibrillation; I10 Essential (primary) hypertension; M19.90 Unspecified osteoarthritis, unspecified site; H40.9 Unspecified glaucoma; Z87.891 Personal history of nicotine dependence; Z88.2 Allergy status to sulfonamides; Z79.01 Long term (current) use of anticoagulants; Z79.82 Long term (current) use of aspirin; Z79.890 Hormone replacement therapy; Z79.899 Other long term (current) drug therapy; Z85.841 Personal history of malignant neoplasm of brain; Z86.69 Personal history of other diseases of the nervous system and sense organs; Z98.890 Other specified postprocedural states; Z95.818 Presence of other cardiac implants and grafts; Z80.1 Family history of malignant neoplasm of trachea, bronchus and lung
CPT/HCPCS: 36415; 71046; 80053; 81001; 83605; 85025; 87040; 87502; 99284

== ENCOUNTER 2019-06-15 11:21 | Emergency (ER) | payer MEDICARE ==
[2019-06-15] MEDS ORDERED: SODIUM CHLORIDE 0.9% 500 ML 500 ML IV STA (13:27)
--- NOTE | 2019-06-15 14:00 | ED ---
Abdominal Pain HPI - General Chief Complaint: Abdominal Pain Stated Complaint: Abd Pain Time Seen by Provider: 06/15/19 12:52 Source: patient Mode of arrival: ambulatory Limitations: no limitations - History of Present Illness Initial Comments: Patient is a 78-year-old female presenting to emergency Department with complaints of right-sided abdominal pain 2 days. Patient states the pain is worse when she get up in the morning. Patient states this morning she got up and had trouble walking secondary to the pain. Patient does admit to mild nausea however no vomiting, no diarrhea. Patient describes the pain as very sharp at times in the right lower quadrant. Patient admits to history of cholecystectomy and hysterectomy, no other abdominal surgeries. No history of kidney stones. Patient had normal bowel movement yesterday. Patient denies urinary complaints, fever, chills. Patient has no other complaints at this time. Upon arrival to the ER, her vital signs are stable. - Related Data Home Medications Medication Instructions Recorded Confirmed Brimonidine Tartrate/Timolol 1 drop BOTH EYES BID 08/20/14 08/08/18 [Combigan 0.2%/0.5% Ophth Soln] Latanoprost Ophth [Xalatan 0.005%] 1 drop BOTH EYES HS 08/20/14 08/08/18 Losartan/Hydrochlorothiazide 1 tab PO DIRECTED 08/20/14 08/08/18 [Hyzaar 100-25 Tablet] Estrogens, Conjugated [Premarin] 0.9 mg PO DIRECTED 10/29/15 08/08/18 Acetaminophen Tab [Tylenol Tab] 1,000 mg PO Q4H PRN 08/08/18 08/08/18 Apixaban [Eliquis] 5 mg PO DIRECTED 08/08/18 08/08/18 Aspirin 81 mg PO DAILY 08/08/18 08/08/18 levETIRAcetam [Keppra] 500 mg PO BID 08/08/18 08/08/18 Previous Rx's Medication Instructions Recorded Atorvastatin [Lipitor] 40 mg PO HS #30 tablet 09/15/17 Allergies Allergy/AdvReac Type Severity Reaction Status Date / Time Sulfa (Sulfonamide Allergy Unknown Verified 08/08/18 22:03 Antibiotics) Childhood Review of Systems ROS Statement: Those systems with pertinent positive or pertinent negative responses have been documented in the HPI. ROS Other: All systems not noted in ROS Statement are negative. 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" and "meningiomas 3 on brain" History of Any Multi-Drug Resistant Organisms: None Reported Past Surgical History: Cholecystectomy, Heart Catheterization, Hysterectomy Additional Past Surgical History / Comment(s): rt cataract sx, injection lt foot, menigiomas removed, cataract surgery Past Anesthesia/Blood Transfusion Reactions: No Reported Reaction Past Psychological History: No Psychological Hx Reported Smoking Status: Former smoker Past Alcohol Use History: Occasional Past Drug Use History: None Reported - Past Family History Father Family Medical History: Cancer, Congestive Heart Failure (CHF) Additional Family Medical History / Comment(s): ENLARGED HEART Brother(s) Family Medical History: Cancer, Liver Disease Additional Family Medical History / Comment(s): CANCER IN HIS EYE AND IN HIS LIVER. AND 2 OTHER BROTHERS FROM [place]'S Sister(s) Family Medical History: CVA/TIA Mother Family Medical History: Cancer Additional Family Medical History / Comment(s): BREAST/LUNG CANCER,LEUKEMIA General Exam - General Exam Comments Initial Comments: GENERAL: Well-appearing, well-nourished and in no acute distress. HEAD: Atraumatic, normocephalic. EYES: Pupils equal round and reactive to light, extraocular movements intact, sclera anicteric, conjunctiva are normal. ENT: TMs normal, nares patent, oropharynx clear without exudates. Moist mucous membranes. NECK: Normal range of motion, supple without lymphadenopathy or JVD. LUNGS: Breath sounds clear to auscultation bilaterally and equal. No wheezes rales or rhonchi. HEART: Regular rate and rhythm without murmurs, rubs or gallops. ABDOMEN: Mild to palpation in the right lower quadrant Soft, normoactive bowel sounds. No guarding, no rebound. No masses appreciated. : Deferred EXTREMITIES: Normal range of motion, no pitting or edema. No clubbing or cyanosis. NEUROLOGICAL: Normal speech, normal gait. PSYCH: Normal mood, normal affect. SKIN: Warm, Dry, normal turgor, no rashes or lesions noted. Limitations: no limitations Course Vital Signs 06/15/19 06/15/19 11:53 16:17 Temperature 97.7 F 98.0 F Pulse Rate 68 78 Respiratory 19 16 Rate Blood Pressure 209/77 134/87 O2 Sat by Pulse 96 99 Oximetry Medical Decision Making - Medical Decision Making Patient is a 78-year-old female presenting with right-sided abdominal pain. Vital signs are stable. Exam reveals mild right lower quadrant pain. Lab work shows no acute abnormalities, UA is normal, no signs of infection. CT of the abdomen shows a normal appendix, a stable prominent 7 mm right lower quadrant lymph node. Sigmoid diverticulosis without acute diverticulitis. No other acute findings. I discussed these findings with the patient. On reexamination, patient is having no pain, no nausea. I discussed that this may be related to her lymph node or a possible strain of her hip muscle. Patient is stable for discharge at this time. Patient will follow up with her PCP as symptoms persist. Patient may take Tylenol for pain relief. She is in agreement with this plan of care. Return parameters were discussed with the patient she verbalized understanding. Case discussed with Dr. Key. - Lab Data Result diagrams: 06/15/19 14:03 06/15/19 14:03 Lab Results 06/15/19 06/15/19 06/15/19 Range/Units 14:03 14:03 14:03 WBC 7.3 (3.8-10.6) k/uL RBC 4.12 (3.80-5.40) m/uL Hgb 12.5 (11.4-16.0) gm/dL Hct 36.1 (34.0-46.0) % MCV 87.5 (80.0-100.0) fL MCH 30.3 (25.0-35.0) pg MCHC 34.6 (31.0-37.0) g/dL RDW 16.0 H (11.5-15.5) % Plt Count 249 (150-450) k/uL Neutrophils % 59 % Lymphocytes % 31 % Monocytes % 6 % Eosinophils % 1 % Basophils % 0 % Neutrophils # 4.3 (1.3-7.7) k/uL Lymphocytes # 2.3 (1.0-4.8) k/uL Monocytes # 0.4 (0-1.0) k/uL Eosinophils # 0.1 (0-0.7) k/uL Basophils # 0.0 (0-0.2) k/uL Anisocytosis Slight PT (9.0-12.0) sec INR (<1.2) APTT (22.0-30.0) sec Sodium 137 (137-145) mmol/L Potassium 4.0 (3.5-5.1) mmol/L Chloride 102 (98-107) mmol/L Carbon Dioxide 31 H (22-30) mmol/L Anion Gap 4 mmol/L BUN 19 H (7-17) mg/dL Creatinine 0.63 (0.52-1.04) mg/dL Est GFR (CKD-EPI)AfAm >90 (>60 ml/min/1.73 sqM) Est GFR (CKD-EPI)NonAf 86 (>60 ml/min/1.73 sqM) Glucose 96 (74-99) mg/dL Plasma Lactic Acid Russell 0.7 (0.7-2.0) mmol/L Calcium 9.3 (8.4-10.2) mg/dL Total Bilirubin 1.0 (0.2-1.3) mg/dL AST 25 (14-36) U/L ALT 13 (4-34) U/L Alkaline Phosphatase 119 (38-126) U/L Total Protein 7.1 (6.3-8.2) g/dL Albumin 3.8 (3.5-5.0) g/dL Amylase 44 (30-110) U/L Lipase 176 (23-300) U/L Urine Color Urine Appearance (Clear) Urine pH (5.0-8.0) Ur Specific [place] (1.001-1.035) Urine Protein (Negative) Urine Glucose (UA) (Negative) Urine Ketones (Negative) Urine Blood (Negative) Urine Nitrite (Negative) Urine Bilirubin (Negative) Urine Urobilinogen (<2.0) mg/dL Ur Leukocyte Esterase (Negative) Urine RBC (0-5) /hpf Urine WBC (0-5) /hpf Ur Squamous Epith Cells (0-4) /hpf Urine Bacteria (None) /hpf 06/15/19 06/15/19 Range/Units 14:03 14:03 WBC (3.8-10.6) k/uL RBC (3.80-5.40) m/uL Hgb (11.4-16.0) gm/dL Hct (34.0-46.0) % MCV (80.0-100.0) fL MCH (25.0-35.0) pg MCHC (31.0-37.0) g/dL RDW (11.5-15.5) % Plt Count (150-450) k/uL Neutrophils % % Lymphocytes % % Monocytes % % Eosinophils % % Basophils % % Neutrophils # (1.3-7.7) k/uL Lymphocytes # (1.0-4.8) k/uL Monocytes # (0-1.0) k/uL Eosinophils # (0-0.7) k/uL Basophils # (0-0.2) k/uL Anisocytosis PT 9.9 (9.0-12.0) sec INR 0.9 (<1.2) APTT 28.5 (22.0-30.0) sec Sodium (137-145) mmol/L Potassium (3.5-5.1) mmol/L Chloride (98-107) mmol/L Carbon Dioxide (22-30) mmol/L Anion Gap mmol/L BUN (7-17) mg/dL Creatinine (0.52-1.04) mg/dL Est GFR (CKD-EPI)AfAm (>60 ml/min/1.73 sqM) Est GFR (CKD-EPI)NonAf (>60 ml/min/1.73 sqM) Glucose (74-99) mg/dL Plasma Lactic Acid Russell (0.7-2.0) mmol/L Calcium (8.4-10.2) mg/dL Total Bilirubin (0.2-1.3) mg/dL AST (14-36) U/L ALT (4-34) U/L Alkaline Phosphatase (38-126) U/L Total Protein (6.3-8.2) g/dL Albumin (3.5-5.0) g/dL Amylase (30-110) U/L Lipase (23-300) U/L Urine Color Yellow Urine Appearance Clear (Clear) Urine pH 7.5 (5.0-8.0) Ur Specific [place] 1.014 (1.001-1.035) Urine Protein Negative (Negative) Urine Glucose (UA) Negative (Negative) Urine Ketones Negative (Negative) Urine Blood Trace H (Negative) Urine Nitrite Negative (Negative) Urine Bilirubin Negative (Negative) Urine Urobilinogen <2.0 (<2.0) mg/dL Ur Leukocyte Esterase Negative (Negative) Urine RBC 6 H (0-5) /hpf Urine WBC 1 (0-5) /hpf Ur Squamous Epith Cells 2 (0-4) /hpf Urine Bacteria Occasional H (None) /hpf Disposition Clinical Impression: Abdominal pain Disposition: HOME SELF-CARE Condition: Stable Instructions (If sedation given, give patient instructions): Abdominal Pain (ED) Additional Instructions: Please return to the Emergency Department if symptoms worsen or any other concerns. Follow-up with PCP. Continue with Tylenol for symptom relief. Increase fluid intake. Is patient prescribed a controlled substance at d/c from ED?: No Referrals: Justus Ledbetter DO [Primary Care Provider] - 1-2 days
[2019-06-15 14:28] LABS: Anisocytosis Slight; Basophils % (A) 0 %; Eosinophils # (A) 0.1 k/uL (0-0.7); Eosinophils % (A) 1 %; HCT 36.1 % (34.0-46.0); HGB 12.5 gm/dL (11.4-16.0); Lymphocytes # (A) 2.3 k/uL (1.0-4.8); Lymphocytes % (A) 31 %; MCH 30.3 pg (25.0-35.0); MCHC 34.6 g/dL (31.0-37.0); MCV 87.5 fL (80.0-100.0); Mean Platelet Volume 7.8; Monocytes # (A) 0.4 k/uL (0-1.0); Monocytes % (A) 6 %; Neutrophils # (A) 4.3 k/uL (1.3-7.7); Neutrophils % (A) 59 %; Platelet Count 249 k/uL (150-450); RBC 4.12 m/uL (3.80-5.40); WBC 7.3 k/uL (3.8-10.6)
[2019-06-15 14:30] LABS: Appearance,Urine Clear (Clear); Bacteria,Urine Occasional /hpf; Bilirubin,Urine Negative (Negative); Blood,Urine Trace (Negative); Color,Urine Yellow; Glucose,Urine (UA) Negative (Negative); Ketones,Urine Negative (Negative); Leukocyte Esterase,Urine Negative (Negative); Nitrite,Urine Negative (Negative); PH, Urine 7.5 (5.0-8.0); Protein,Urine Negative (Negative); RBC,Urine 6 /hpf (0-5); Specific Gravity,Urine 1.014 (1.001-1.035); Squamous Epithelial Cell,Urine 2 /hpf (0-4); Urobilinogen,Urine <2.0 mg/dL (<2.0); WBC,Urine 1 /hpf (0-5)
[2019-06-15 14:37] LABS: ALT 13 U/L (4-34); AST 25 U/L (14-36); African American GFR (CKD) >90 (>60 ml/min/1.73 sqM); Albumin 3.8 g/dL (3.5-5.0); Alkaline Phosphatase 119 U/L (38-126); Amylase 44 U/L (30-110); Anion Gap 4 mmol/L; Blood Urea Nitrogen 19 mg/dL (7-17); Calcium 9.3 mg/dL (8.4-10.2); Carbon Dioxide 31 mmol/L (22-30); Chloride 102 mmol/L (98-107); Glucose 96 mg/dL (74-99); INR 0.9 (<1.2); Non-African American GFR(CKD) 86 (>60 ml/min/1.73 sqM); Partial Thromboplastin Time 28.5 sec (22.0-30.0); Prothrombin Time 9.9 sec (9.0-12.0); Sodium 137 mmol/L (137-145); Total Protein 7.1 g/dL (6.3-8.2)
--- NOTE | 2019-06-15 15:25 | CT ---
EXAMINATION TYPE: CT abdomen pelvis w con DATE OF EXAM: 06/15/2019 COMPARISON: 10/28/2015 HISTORY: 78-year-old female Right lower quadrant pain. TECHNIQUE: Contiguous axial scanning of the abdomen and pelvis following administration of 100 ml Iso viktor 300 IV contrast. Delayed images through the kidneys and coronal/sagittal reconstructions perform ed. CT DLP: 2019.4 mGycm Automated exposure control for dose reduction was used. FINDINGS: Heart upper limits of normal in size. Coronary vessel calcifications are present. Some strandy atelec tasis in the lower lungs without pleural effusion. No focal liver lesion or biliary ductal dilatation. Portal venous system is patent. Cholecystectomy c lips. Right adrenal gland, spleen, and pancreas normal limits. Simple cyst measuring up to 1.9 cm and the right kidney and a bilobed left-sided renal cyst measuring 3.5 cm on the left. Stable 1.1 cm nodularity left adrenal gland suggesting a benign adrenal adenoma. Moderate to severe atherosclerotic calcifications infrarenal abdominal aorta and common iliac arterie s without aneurysm. No dilated small bowel, free fluid, or free air. Normal appendix is noted. Stable prominent 7 mm right lower quadrant mesenteric lymph node. Mild stool burden with a sigmoid di verticulosis. No pericolonic inflammatory change seen. Mild perivesicular fat stranding along the anterior wall. Multiple pelvic phleboliths. Uterus surgica lly absent. Suspect [place] station of small postmenopausal ovaries. No abnormal fluid collection in the pelvis or pelvic lymphadenopathy. Bones: Degenerated dextroconvex scoliosis of the lumbar spine. IMPRESSION: 1. NORMAL APPENDIX. 2. MILD PERIVESICULAR FAT STRANDING ALONG THE ANTERIOR WALL OF THE BLADDER. CORRELATE TO EXCLUDE CYST ITIS. 3. SIGMOID DIVERTICULOSIS WITHOUT ACUTE DIVERTICULITIS.
[2019-06-15 16:18] VITALS: BP 134/87; PULSE 78; RESP 16; TEMP 98
== END 2019-06-15 16:18 | disposition home or self-care (01) ==
LOC: EC 11:21
DX: R10.31 Right lower quadrant pain (principal); K57.30 Diverticulosis of large intestine without perforation or abscess without bleeding; I48.91 Unspecified atrial fibrillation; I10 Essential (primary) hypertension; M19.90 Unspecified osteoarthritis, unspecified site; H40.9 Unspecified glaucoma; Z87.891 Personal history of nicotine dependence; Z88.2 Allergy status to sulfonamides; Z79.01 Long term (current) use of anticoagulants; Z79.82 Long term (current) use of aspirin; Z79.890 Hormone replacement therapy; Z79.899 Other long term (current) drug therapy; Z86.011 Personal history of benign neoplasm of the brain; Z90.49 Acquired absence of other specified parts of digestive tract; Z90.710 Acquired absence of both cervix and uterus; Z98.890 Other specified postprocedural states; Z80.0 Family history of malignant neoplasm of digestive organs
CPT/HCPCS: 36415; 80053; 82150; 83605; 83690; 85025; 85610; 85730; 81001; 74177; 99284; 96360; 96361; Q9967

== ENCOUNTER → 2020-04-24 | Outpatient (CLI) | payer MEDICARE ==
--- NOTE | 2020-04-25 07:24 | XR ---
Right hand HISTORY: Pain fourth digit, injury one month prior 3 views of the right hand There are osteoarthritic changes within the hand, joint space loss at the metacarpal phalangeal joint s, carpometacarpal joint of the first digit, distal interphalangeal joints. Lateral exam shows the fo urth digit to be superimposed. Frontal exam suggests some subluxation at the metacarpophalangeal join t of the fourth digit. IMPRESSION: Correlate for subluxation metacarpophalangeal joint fourth digit, osteoarthritic changes are present.
== END | disposition home or self-care (01) ==
LOC: RAD 17:17
PROVIDERS: ATTEND Family Medicine
DX: M19.041 Primary osteoarthritis, right hand (principal)

== ENCOUNTER → 2020-09-25 | Outpatient (CLI) | payer MEDICARE ==
--- NOTE | 2020-09-25 13:06 | BD ---
EXAMINATION TYPE: Axial Bone Density DATE OF EXAM: 09/25/2020 COMPARISON: NONE CLINICAL HISTORY: Height: 57 Weight: 210.9 FRAX RISK QUESTIONS: Alcohol (3 or more units per day): no Family History (Parent hip fracture): no Glucocorticoids (More than 3mos): no (Ex: prednisone, prednisolone, methylprednisolone, dexamethasone, and hydrocortisone). History of Fracture in Adulthood: no Secondary Osteoporosis: 1. Type 1 Diabetes: no 2. Hyperthyroidism: no 3. Menopause before 45: yes 4. Malnutrition: no 5. Chronic liver disease: no Rheumatoid Arthritis: no Current Tobacco Use: no RISK FACTORS HISTORY OF: Active: no Diet low in dairy products/other sources of calcium: no Postmenopausal woman: age 36 Lost more than 2 inches in height since high school: no MEDICATIONS: losartan htz, eliquis, lipitor Additional History: EXAM MEASUREMENTS: Bone mineral densitometry was performed using the [employer] System. Bone mineral density as measured about the Lumbar spine is: ----- L1-L4(G/cm2): 1.891 T Score Values are as follows: ----- L2: 3.4 ----- L3: 4.9 ----- L4: 8.9 ----- L1-L4: 5.9 Bone mineral density has: increased 0.8 % since study of: 11.10.2016 Bone mineral density about the R hip (g/cm2): 0.901 Bone mineral density about the L hip (g/cm2): 0.982 T Score values are as follows: -----R Neck: -1.0 -----L Neck: -0.4 -----R Total: 1.5 -----L Total: 1.9 Bone mineral density has: decreased -4.4 % since study of: 11.10.2016 IMPRESSION: Osteopenia NOTE: T-SCORE=SD OF THE YOUNG ADULT MEAN.
== END | disposition home or self-care (01) ==
LOC: RADBDWWP 10:06
PROVIDERS: ATTEND Family Medicine
DX: M85.851 Other specified disorders of bone density and structure, right thigh (principal); Z78.0 Asymptomatic menopausal state
CPT/HCPCS: 77080

== ENCOUNTER → 2020-09-30 | Outpatient (CLI) | payer MEDICARE ==
--- NOTE | 2020-10-01 12:31 | MM ---
Reason for exam: screening (asymptomatic). Last mammogram was performed 1 year and 3 months ago. History: Patient is postmenopausal. Family history of breast cancer in aunt, breast cancer in daughter, premenopausal breast cancer in mother, and breast cancer in paternal aunt. Took estrogen for 31 years 2 months. Took progesterone for 31 years 2 months. Physical Findings: A clinical breast exam by your physician is recommended on an annual basis and results should be correlated with mammographic findings. MG 3D Screening Mammo W/Cad Bilateral CC and MLO view(s) were taken. Prior study comparison: June 30, 2019, bilateral MG 3d screening mammo w/cad. June 06, 2018, bilateral MG 3d screening mammo w/cad. The breast tissue is almost entirely fat. No significant changes when compared with prior studies. ASSESSMENT: Benign, BI-RAD 2 RECOMMENDATION: Routine screening mammogram of both breasts in 1 year.
== END | disposition home or self-care (01) ==
LOC: RADMAMWWP 10:02
PROVIDERS: ATTEND Family Medicine
DX: Z12.31 Encounter for screening mammogram for malignant neoplasm of breast (principal); Z80.3 Family history of malignant neoplasm of breast
CPT/HCPCS: 77063; 77067

== ENCOUNTER → 2020-11-01 | Outpatient (CLI) | payer MEDICARE ==
--- NOTE | 2020-11-01 13:57 | XR ---
EXAMINATION TYPE: XR Hip Bilateral Complete DATE OF EXAM: 11/01/2020 CLINICAL HISTORY: pain TECHNIQUE: AP and frogleg views of the bilateral hips are obtained. COMPARISON: None. FINDINGS: There is no acute fracture/dislocation evident. The joint spaces are mildly narrowed bilat erally. The overlying soft tissue appears unremarkable. IMPRESSION: 1. There is no acute fracture or dislocation. ICD 10 NO FRACTURE, INITIAL EVALUATION
--- NOTE | 2020-11-01 13:57 | XR ---
EXAMINATION TYPE: XR knee complete bilateral DATE OF EXAM: 11/01/2020 CLINICAL HISTORY: pain TECHNIQUE: Three views of the bilateral knees are submitted. COMPARISON: None. FINDINGS: There is no acute fracture/dislocation. The tri-compartment joint spaces appear mildly na rrowed. Mild spur formation noted. The overlying soft tissue appears unremarkable. IMPRESSION: There is no acute fracture or dislocation.ICD 10 NO FRACTURE, INITIAL EVALUATION
== END | disposition home or self-care (01) ==
LOC: RADXRMAIN 13:10
PROVIDERS: ATTEND Family Medicine
DX: M25.561 Pain in right knee (principal); M25.562 Pain in left knee; M25.551 Pain in right hip; M25.552 Pain in left hip
CPT/HCPCS: 73521

== ENCOUNTER 2021-01-11 13:15 | Observation (INO) | payer MEDICARE ==
[2021-01-11] MEDS ORDERED: SODIUM CHLORIDE 0.9% 1,000 ML IV STA (14:02)
[2021-01-11 14:26] LABS: INR 0.9 (<1.2); Partial Thromboplastin Time 26.1 sec (22.0-30.0); Prothrombin Time 10.2 sec (9.0-12.0)
[2021-01-11 14:27] LABS: ALT 15 U/L (4-34); AST 27 U/L (14-36); African American GFR (CKD) >90 (>60 ml/min/1.73 sqM); Albumin 3.6 g/dL (3.5-5.0); Alkaline Phosphatase 118 U/L (38-126); Anion Gap 8 mmol/L; Blood Urea Nitrogen 22 mg/dL (7-17); Calcium 9.6 mg/dL (8.4-10.2); Carbon Dioxide 29 mmol/L (22-30); Chloride 103 mmol/L (98-107); Glucose 111 mg/dL (74-99); Non-African American GFR(CKD) 84 (>60 ml/min/1.73 sqM); Potassium 4.2 mmol/L (3.5-5.1); Sodium 140 mmol/L (137-145); Total Bilirubin 0.6 mg/dL (0.2-1.3); Total Protein 6.5 g/dL (6.3-8.2)
[2021-01-11 14:31] LABS: Basophils % (A) 1 %; Eosinophils # (A) 0.1 k/uL (0-0.7); Eosinophils % (A) 2 %; HCT 39.2 % (34.0-46.0); HGB 12.6 gm/dL (11.4-16.0); Lymphocytes # (A) 1.7 k/uL (1.0-4.8); Lymphocytes % (A) 25 %; MCH 27.4 pg (25.0-35.0); MCHC 32.1 g/dL (31.0-37.0); MCV 85.4 fL (80.0-100.0); Mean Platelet Volume 7.8; Monocytes # (A) 0.5 k/uL (0-1.0); Monocytes % (A) 7 %; Neutrophils # (A) 4.5 k/uL (1.3-7.7); Neutrophils % (A) 64 %; Platelet Count 262 k/uL (150-450); RBC 4.59 m/uL (3.80-5.40); RDW 14.8 % (11.5-15.5)
[2021-01-11 14:36] LABS: Appearance,Urine Cloudy (Clear); Bacteria,Urine Rare /hpf; Bilirubin,Urine Negative (Negative); Blood,Urine Small (Negative); Color,Urine Yellow; Glucose,Urine (UA) Negative (Negative); Hyaline Casts,Urine 5 /lpf (0-2); Ketones,Urine Negative (Negative); Leukocyte Esterase,Urine Negative (Negative); Mucus,Urine Rare /hpf; Nitrite,Urine Negative (Negative); PH, Urine 5.5 (5.0-8.0); Protein,Urine Trace (Negative); RBC,Urine 4 /hpf (0-5); Specific Gravity,Urine 1.018 (1.001-1.035); Squamous Epithelial Cell,Urine 2 /hpf (0-4); Urobilinogen,Urine <2.0 mg/dL (<2.0); WBC,Urine 2 /hpf (0-5)
--- NOTE | 2021-01-11 14:49 | XR ---
EXAMINATION TYPE: XR chest 2V DATE OF EXAM: 01/11/2021 COMPARISON: 08/08/2018 HISTORY: Syncope TECHNIQUE: FINDINGS: Heart and mediastinum are normal. Lungs are clear. Diaphragm is normal. There are chest sari ds. Bony thorax appears intact. IMPRESSION: Normal chest. No change.
--- NOTE | 2021-01-11 14:51 | CT ---
EXAMINATION TYPE: CT brain wo con DATE OF EXAM: 01/11/2021 COMPARISON: 01/01/2018 HISTORY: Dizziness with a fall today. CT DLP: 1173.4 mGycm Automated exposure control for dose reduction was used. There is cerebral cortical atrophy. There is no mass effect nor midline shift. There is no sign of in tracranial hemorrhage. There is 5 cm area of hypodensity right frontal lobe consistent with old encep halomalacia. The calvarium is intact. There is right frontal craniotomy defect. IMPRESSION: There is cerebral atrophy. Chronic small vessel ischemia. No acute intracranial abnormality. There is surgery with apparent excision of the large right frontal meningioma compared to old exam. Right fro ntal lobe encephalomalacia.
--- NOTE | 2021-01-11 15:10 | ED ---
General Adult HPI - General Chief complaint: Syncope Stated complaint: Syncope Time Seen by Provider: 01/11/21 13:53 Source: patient, RN notes reviewed Mode of arrival: ambulatory Limitations: no limitations - History of Present Illness Initial comments: Patient is an 80-year-old female that presents to emergency department status post fall. She notes that she was walking in her kitchen blacked out in the next in she no she woke up on the floor. She denied hitting her head but daughter does report that she did say she bounced her head off the floor. Patient was otherwise a well-appearing 80-year-old female. She notes that she does take blood thinners. - Related Data Home Medications Medication Instructions Recorded Confirmed Brimonidine Tartrate/Timolol 1 drop BOTH EYES BID 08/20/14 08/08/18 [Combigan 0.2%/0.5% Ophth Soln] Latanoprost Ophth [Xalatan 0.005%] 1 drop BOTH EYES HS 08/20/14 08/08/18 Losartan/Hydrochlorothiazide 1 tab PO DIRECTED 08/20/14 08/08/18 [Hyzaar 100-25 Tablet] Estrogens, Conjugated [Premarin] 0.9 mg PO DIRECTED 10/29/15 08/08/18 Acetaminophen Tab [Tylenol Tab] 1,000 mg PO Q4H PRN 08/08/18 08/08/18 Apixaban [Eliquis] 5 mg PO DIRECTED 08/08/18 08/08/18 Aspirin 81 mg PO DAILY 08/08/18 08/08/18 levETIRAcetam [Keppra] 500 mg PO BID 08/08/18 08/08/18 Previous Rx's Medication Instructions Recorded Atorvastatin [Lipitor] 40 mg PO HS #30 tablet 09/15/17 Allergies Allergy/AdvReac Type Severity Reaction Status Date / Time Sulfa (Sulfonamide Allergy Unknown Verified 01/11/21 13:26 Antibiotics) Childhood Review of Systems ROS Statement: Those systems with pertinent positive or pertinent negative responses have been documented in the HPI. ROS Other: All systems not noted in ROS Statement are negative. 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" and "meningiomas 3 on brain" MRA done recently History of Any Multi-Drug Resistant Organisms: None Reported Past Surgical History: Cholecystectomy, Heart Catheterization, Hysterectomy Additional Past Surgical History / Comment(s): rt cataract sx, injection lt foot, menigiomas removed, cataract surgery Past Anesthesia/Blood Transfusion Reactions: No Reported Reaction Past Psychological History: No Psychological Hx Reported Smoking Status: Former smoker Past Alcohol Use History: Occasional Past Drug Use History: None Reported - Past Family History Father Family Medical History: Cancer, Congestive Heart Failure (CHF) Additional Family Medical History / Comment(s): ENLARGED HEART Brother(s) Family Medical History: Cancer, Liver Disease Additional Family Medical History / Comment(s): CANCER IN HIS EYE AND IN HIS LIVER. AND 2 OTHER BROTHERS FROM CO'S Sister(s) Family Medical History: CVA/TIA Mother Family Medical History: Cancer Additional Family Medical History / Comment(s): BREAST/LUNG CANCER,LEUKEMIA General Exam Limitations: no limitations General appearance: alert, in no apparent distress Head exam: Present: atraumatic, normocephalic, normal inspection Eye exam: Present: normal appearance, PERRL, EOMI. Absent: scleral icterus, conjunctival injection, periorbital swelling Neck exam: Present: normal inspection Respiratory exam: Present: normal lung sounds bilaterally. Absent: respiratory distress, wheezes, rales, rhonchi, stridor Cardiovascular Exam: Present: regular rate, normal rhythm, normal heart sounds. Absent: systolic murmur, diastolic murmur, rubs, gallop, clicks GI/Abdominal exam: Present: soft, normal bowel sounds. Absent: distended, tenderness, guarding, rebound, rigid Extremities exam: Present: normal inspection, full ROM, normal capillary refill. Absent: tenderness, pedal edema, joint swelling, calf tenderness Back exam: Present: normal inspection Neurological exam: Present: alert, oriented X3 Psychiatric exam: Present: normal affect, normal mood Skin exam: Present: warm, dry, intact, normal color. Absent: rash Course Vital Signs 01/11/21 13:18 Temperature 97.0 F L Pulse Rate 61 Respiratory 18 Rate Blood Pressure 151/84 O2 Sat by Pulse 96 Oximetry EKG Findings - EKG Comments: EKG Findings:: Ventricular rate 57 bpm, SC interval 176 ms, QRS duration 74 ms, QTC 399 ms, PRT axes 61/-8/29. Sinus bradycardia with marked sinus arrhythmia, low voltage QRS, cannot rule out anterior infarct, age undetermined, abnormal ECG. Medical Decision Making - Medical Decision Making 80-year-old female status post syncopal episode on pelvic was and potentially hitting her head. Labs, CT of the brain, chest x-ray, 1 L normal saline, EKG, monitoring manager ordered. Imaging negative for any acute process. Labs: Troponin 0.083, rest unremarkable. Case discussed with Dr. Arreola, she will be admitted to observation. Dr. Stephens consulted looks of the admit, wanted a CTA and echocardiogram ordered and also have cardiology on consult. - Lab Data Result diagrams: 01/11/21 14:07 01/11/21 14:07 Lab Results 01/11/21 01/11/21 01/11/21 Range/Units 14:07 14:07 14:07 WBC 7.0 (3.8-10.6) k/uL RBC 4.59 (3.80-5.40) m/uL Hgb 12.6 (11.4-16.0) gm/dL Hct 39.2 (34.0-46.0) % MCV 85.4 (80.0-100.0) fL MCH 27.4 (25.0-35.0) pg MCHC 32.1 (31.0-37.0) g/dL RDW 14.8 (11.5-15.5) % Plt Count 262 (150-450) k/uL MPV 7.8 Neutrophils % 64 % Lymphocytes % 25 % Monocytes % 7 % Eosinophils % 2 % Basophils % 1 % Neutrophils # 4.5 (1.3-7.7) k/uL Lymphocytes # 1.7 (1.0-4.8) k/uL Monocytes # 0.5 (0-1.0) k/uL Eosinophils # 0.1 (0-0.7) k/uL Basophils # 0.0 (0-0.2) k/uL PT 10.2 (9.0-12.0) sec INR 0.9 (<1.2) APTT 26.1 (22.0-30.0) sec Sodium (137-145) mmol/L Potassium (3.5-5.1) mmol/L Chloride (98-107) mmol/L Carbon Dioxide (22-30) mmol/L Anion Gap mmol/L BUN (7-17) mg/dL Creatinine (0.52-1.04) mg/dL Est GFR (CKD-EPI)AfAm (>60 ml/min/1.73 sqM) Est GFR (CKD-EPI)NonAf (>60 ml/min/1.73 sqM) Glucose (74-99) mg/dL Calcium (8.4-10.2) mg/dL Total Bilirubin (0.2-1.3) mg/dL AST (14-36) U/L ALT (4-34) U/L Alkaline Phosphatase (38-126) U/L Troponin I (0.000-0.034) ng/mL Total Protein (6.3-8.2) g/dL Albumin (3.5-5.0) g/dL Urine Color Yellow Urine Appearance Cloudy H (Clear) Urine pH 5.5 (5.0-8.0) Ur Specific [place] 1.018 (1.001-1.035) Urine Protein Trace H (Negative) Urine Glucose (UA) Negative (Negative) Urine Ketones Negative (Negative) Urine Blood Small H (Negative) Urine Nitrite Negative (Negative) Urine Bilirubin Negative (Negative) Urine Urobilinogen <2.0 (<2.0) mg/dL Ur Leukocyte Esterase Negative (Negative) Urine RBC 4 (0-5) /hpf Urine WBC 2 (0-5) /hpf Ur Squamous Epith Cells 2 (0-4) /hpf Urine Bacteria Rare H (None) /hpf Hyaline Casts 5 H (0-2) /lpf Urine Mucus Rare H (None) /hpf 01/11/21 01/11/21 Range/Units 14:07 14:07 WBC (3.8-10.6) k/uL RBC (3.80-5.40) m/uL Hgb (11.4-16.0) gm/dL Hct (34.0-46.0) % MCV (80.0-100.0) fL MCH (25.0-35.0) pg MCHC (31.0-37.0) g/dL RDW (11.5-15.5) % Plt Count (150-450) k/uL MPV Neutrophils % % Lymphocytes % % Monocytes % % Eosinophils % % Basophils % % Neutrophils # (1.3-7.7) k/uL Lymphocytes # (1.0-4.8) k/uL Monocytes # (0-1.0) k/uL Eosinophils # (0-0.7) k/uL Basophils # (0-0.2) k/uL PT (9.0-12.0) sec INR (<1.2) APTT (22.0-30.0) sec Sodium 140 (137-145) mmol/L Potassium 4.2 (3.5-5.1) mmol/L Chloride 103 (98-107) mmol/L Carbon Dioxide 29 (22-30) mmol/L Anion Gap 8 mmol/L BUN 22 H (7-17) mg/dL Creatinine 0.64 (0.52-1.04) mg/dL Est GFR (CKD-EPI)AfAm >90 (>60 ml/min/1.73 sqM) Est GFR (CKD-EPI)NonAf 84 (>60 ml/min/1.73 sqM) Glucose 111 H (74-99) mg/dL Calcium 9.6 (8.4-10.2) mg/dL Total Bilirubin 0.6 (0.2-1.3) mg/dL AST 27 (14-36) U/L ALT 15 (4-34) U/L Alkaline Phosphatase 118 (38-126) U/L Troponin I 0.083 H* (0.000-0.034) ng/mL Total Protein 6.5 (6.3-8.2) g/dL Albumin 3.6 (3.5-5.0) g/dL Urine Color Urine Appearance (Clear) Urine pH (5.0-8.0) Ur Specific [place] (1.001-1.035) Urine Protein (Negative) Urine Glucose (UA) (Negative) Urine Ketones (Negative) Urine Blood (Negative) Urine Nitrite (Negative) Urine Bilirubin (Negative) Urine Urobilinogen (<2.0) mg/dL Ur Leukocyte Esterase (Negative) Urine RBC (0-5) /hpf Urine WBC (0-5) /hpf Ur Squamous Epith Cells (0-4) /hpf Urine Bacteria (None) /hpf Hyaline Casts (0-2) /lpf Urine Mucus (None) /hpf - Radiology Data Radiology results: report reviewed, image reviewed CT of the brain: There is cerebral atrophy. Chronic small vessel ischemia. No acute intracranial abnormality. There is surgery with apparent excision of the large right frontal meningioma. Old exam. Right frontal lobe encephalomalacia. Chest x-ray: Normal chest. No change. Disposition Clinical Impression: Syncope, Elevated troponin Disposition: ADMITTED IP TO THIS HOSP Condition: Stable Is patient prescribed a controlled substance at d/c from ED?: No Referrals: Justus Ledbetter DO [Primary Care Provider] - 1-2 days Time of Disposition: 15:21
[2021-01-11] MEDS ORDERED: NITROGLYCERIN SL TABS 0.4 MG TAB SUBLINGUAL PRN (15:16)
--- NOTE | 2021-01-11 16:38 | CT ---
EXAMINATION TYPE: CT angio head neck DATE OF EXAM: 01/11/2021 COMPARISON: 09/14/2017 HISTORY: Syncope. CT DLP: 590.9 mGycm Automated exposure control for dose reduction was used. CONTRAST: Performed with IV Contrast, patient injected with 65 mL of Isovue 370. Images obtained from the aortic arch to the vertex of the brain with IV contrast. There are 3-D post processed images. There is normal branching pattern of the great vessels on the aortic arch. There is arterial flow in both subclavian arteries. There is arterial flow in the common internal and external carotid arteries bilaterally. There is significant plaque formation at the right carotid artery bifurcation and more than 80% stenosis. No evidence of any significant stenosis of the left carotid artery bifurcation. Th ere is arterial flow in both vertebral arteries. Left vertebral artery is larger than the right. Ther e is arterial flow in the vertebrobasilar artery system. There is no evidence of carotid or vertebral artery aneurysm or dissection. There is arterial flow in the anterior middle and posterior cerebral arteries. Left posterior cerebra l artery appears to fill mostly through the left posterior communicating artery. There is large area of hypodensity right frontal lobe consistent with encephalomalacia. I see no intracranial hemodynamic arterial stenosis. There is no evidence of intracranial aneurysm or neovascularity. There is normal enhancement of the venous sinuses. IMPRESSION: There is plaque formation with approximate 80% stenosis of the proximal right internal carotid artery . No evidence of hemodynamic stenosis on the left side. The right side stenosis appears increased com pared to old exam of 2018. No significant intracranial angiographic abnormality.
[2021-01-11] MEDS: APIXABAN 5 MG TAB PO SCH (19:48)
[2021-01-12] MEDS: APIXABAN 5 MG TAB PO SCH ×2 (08:51→20:08)
[2021-01-12] MEDS: ASPIRIN 81 MG PO SCH (08:52)
--- NOTE | 2021-01-12 11:00 | P.HPIM ---
History of Present Illness H&P Date: 01/12/21 Chief Complaint: Syncope This is an 80-year-old female patient of Dr. Ledbetter, with a past medical history of atrial fibrillation, hypertension, osteoarthritis, meningioma of the brain status post removal. Patient presented to the emergency department after she had a syncopal episode. She reports she was walking to the kitchen and she woke up on the floor. Apparently he daughter witnessed the fall and reports she did hit her head on the floor. Patient had a CT of the brain showed cerebral atrophy, chronic small vessel ischemia, excision of the large right frontal meningioma, but no bleed. She also had a CTA that showed plaque formation with approximately 80% stenosis of the proximal right internal carotid artery and no evidence of hemodynamic stenosis on the left. Chest x-ray was clear. Laboratory values show WBC 7, hemoglobin 12.6, platelet count of 262, sodium 140, potassium 4.2, BUN 22, creatinine 0.64. Troponins were elevated. Patient examined today sitting up in the bedside chair with daughter at bedside. Patient has complaints of lower extremity edema, but denies any chest pain or shortness of breath, she denies any weakness or numbness. She denies any nausea, vomiting, burning with urination, constipation or diarrhea. Vital signs are stable she is hypertensive at 177/78, she's 94% on room air afebrile 98.1, heart rate of 61. Will resume her home blood pressure medications, will obtain orthostatic blood pressures, consult with vascular for the carotid stenosis, and cardiology for the elevated troponin. Echocardiogram is pending. Review of Systems Constitutional: Reports weakness, Denies chills, Denies fatigue, Denies fever, Denies lethargy, Denies malaise Ears, nose, mouth and throat: Denies dysphagia, Denies headache, Denies hoarseness, Denies mouth pain, Denies nasal discharge, Denies nose pain, Denies sinus pain, Denies sinus pressure, Denies sore throat Cardiovascular: Reports edema, Reports high blood pressure, Reports leg edema, Reports syncope, Denies chest pain, Denies orthopnea, Denies palpitations, Denies paroxysmal nocturnal dyspnea, Denies shortness of breath Respiratory: Denies congestion, Denies cough, Denies dyspnea, Denies pain, Denies sleep apnea, Denies wheezing Gastrointestinal: Denies abdominal pain, Denies bloating, Denies constipation, Denies diarrhea, Denies dyspepsia, Denies heartburn, Denies loss of appetite, Denies nausea, Denies vomiting Genitourinary: Denies dysuria, Denies hematuria, Denies kidney stones, Denies no cturia, Denies urgency Musculoskeletal: Denies arm numbness/tingling, Denies frequent falls, Denies limitation of motion, Denies muscle cramps, Denies muscle weakness, Denies neck pain, Denies neck stiffness Neurological: Reports syncope, Denies ataxia, Denies confusion, Denies headaches, Denies memory loss, Denies numbness, Denies paralysis, Denies weakness Psychiatric: Denies anxiety, Denies confusion, Denies depression Endocrine: Denies cold intolerance, Denies fatigue, Denies nocturia, Denies polyphagia, Denies polyuria 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 lives alone in single level home that has 5 porch steps. has pet cat. Smoking Status: Former smoker Past Alcohol Use History: Occasional Additional Past Alcohol Use History / Comment(s): STARTED SMOKING AT AGE 16,SMOKED 1.5 PPD, QUIT 1993. Past Drug Use History: None Reported - Past Family History Father Family Medical History: Cancer, Congestive Heart Failure (CHF) Additional Family Medical History / Comment(s): ENLARGED HEART Brother(s) Family Medical History: Cancer, Liver Disease Additional Family Medical History / Comment(s): CANCER IN HIS EYE AND IN HIS LIVER. AND 2 OTHER BROTHERS FROM GA'S Sister(s) Family Medical History: CVA/TIA Mother Family Medical History: Cancer Additional Family Medical History / Comment(s): BREAST/LUNG CANCER,LEUKEMIA Medications and Allergies Home Medications Medication Instructions Recorded Confirmed Type Brimonidine Tartrate/Timolol 1 drop BOTH EYES BID 08/20/14 01/11/21 History [Combigan 0.2%/0.5% Ophth Soln] Latanoprost Ophth [Xalatan 0.005%] 1 drop BOTH EYES HS 08/20/14 01/11/21 History Losartan/Hydrochlorothiazide 1 tab PO DAILY 08/20/14 01/11/21 History [Hyzaar 100-25 Tablet] Atorvastatin [Lipitor] 40 mg PO HS #30 tablet 09/15/17 01/11/21 Rx Apixaban [Eliquis] 5 mg PO BID 08/08/18 01/11/21 History amLODIPine [Norvasc] 10 mg PO DAILY 01/11/21 01/11/21 History Allergies Allergy/AdvReac Type Severity Reaction Status Date / Time Sulfa (Sulfonamide Allergy Unknown Verified 01/11/21 16:25 Antibiotics) Childhood Physical Exam Vitals: Vital Signs Temp Pulse Pulse Resp BP BP Pulse Ox 01/12/21 08:00 98.1 F 61 18 177/78 94 L 01/12/21 03:35 98 F 69 17 129/71 94 L 01/11/21 23:20 97.8 F 71 17 125/51 97 01/11/21 19:45 98.1 F 67 18 147/67 97 01/11/21 17:15 64 18 134/84 98 01/11/21 16:00 98.4 F 66 18 179/76 95 01/11/21 15:25 68 18 118/56 96 01/11/21 13:18 97.0 F L 61 18 151/84 96 Intake and Output 01/11/21 01/12/21 01/12/21 22:59 06:59 14:59 Intake Total 240 Balance 240 Intake: Oral 240 Other: Voiding Method Toilet Toilet Toilet # Voids 1 4 Weight 95.254 kg 68 kg - Constitutional General appearance: cooperative, no acute distress, obese - EENT Eyes: EOMI, PERRLA, normal appearance - Neck Neck: no lymphadenopathy, normal ROM, no stridor, no thyromegaly - Respiratory Respiratory: bilateral: CTA, negative: diminished, dullness, rales, rhonchi, wheezing - Cardiovascular +1 bilateral lower extremity edema Rhythm: regular Heart sounds: normal: S1, S2 Abnormal Heart Sounds: no systolic murmur, no diastolic murmur - Gastrointestinal General gastrointestinal: no distended, normal bowel sounds, no organomegaly, soft, no tenderness - Neurologic Generalized weakness but no focal deficits Neurologic: CNII-XII intact - Musculoskeletal Musculoskeletal: generalized weakness, strength equal bilaterally - Psychiatric Psychiatric: A&O x's 3, appropriate affect, intact judgment & insight Results CBC & Chem 7: 01/11/21 14:07 01/11/21 14:07 Labs: Abnormal Lab Results - Last 24 Hours (Table) 01/11/21 01/11/21 01/11/21 Range/Units 14:07 14:07 14:07 BUN 22 H (7-17) mg/dL Glucose 111 H (74-99) mg/dL Troponin I 0.083 H* (0.000-0.034) ng/mL Urine Appearance Cloudy H (Clear) Urine Protein Trace H (Negative) Urine Blood Small H (Negative) Urine Bacteria Rare H (None) /hpf Hyaline Casts 5 H (0-2) /lpf Urine Mucus Rare H (None) /hpf 01/11/21 01/11/21 Range/Units 16:04 18:44 BUN (7-17) mg/dL Glucose (74-99) mg/dL Troponin I 0.073 H* 0.059 H* (0.000-0.034) ng/mL Urine Appearance (Clear) Urine Protein (Negative) Urine Blood (Negative) Urine Bacteria (None) /hpf Hyaline Casts (0-2) /lpf Urine Mucus (None) /hpf Thrombosis Risk Factor Assmnt - Choose All That Apply Any of the Below Risk Factors Present?: Yes Each Factor Represents 1 point: Obesity (BMI >25) Other Risk Factors: Yes Each Risk Factor Represents 3 Points: Age 75 years or older Other congenital or acquired thrombophilia - If yes, enter type in comment: No Thrombosis Risk Factor Assessment Total Risk Factor Score: 4 Thrombosis Risk Factor Assessment Level: Moderate Risk Assessment and Plan Plan: 1. Syncope. CTA showed 80% stenosis of the right carotid artery, vascular consulted, will consult cardiology, obtain echo, obtain orthostatic vitals 2. Carotid stenosis. CTA showed 80% stenosis of the proximal right internal carotid artery, will consult with vascular, continue aspirin along with a torvastatin. 3. Elevated troponin. Will obtain echocardiogram, cardiology consulted 4. Hypertension. Continue losartan 100 mg daily, along with hydrochlorothiazide 25 mg daily and Norvasc 10 mg daily 5. Edema. Will obtain echocardiogram to rule out CHF, furosemide 40 mg daily ordered 6. History of atrial fibrillation. Not on any beta blockers, continue with Eliquis for anticoagulation 7. Hyperlipidemia. Continue Lipitor 40 mg daily 8. DVT prophylaxis. Continue Eliquis 9. GI prophylaxis. Pantoprazole The above impression and plan of care have been discussed and directed by signing physician. Eun Field nurse practitioner acting as scribe for signing physician.
--- NOTE | 2021-01-12 12:12 | P.GSCN ---
History of Present Illness Consult date: 01/12/21 Reason for Consult: Carotid stenosis. Requesting physician: Vonnie Stephens History of present illness: Patient is an 80-year-old female who was admitted recently to the hospital for syncopal episode. During workup she was found to be suffering from a 80% stenosis of the right ICA as documented on a CTA of the carotid arteries. The patient has known of this carotid stenosis for the past few years and as recently as December 19 of this year did undergo an MRA of her carotids under the direction of her neurosurgeon. She denies any focal motor neurologic events. 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 lives alone in single level home that has 5 porch steps. has pet cat. Smoking Status: Former smoker Past Alcohol Use History: Occasional Additional Past Alcohol Use History / Comment(s): STARTED SMOKING AT AGE 16,SMOKED 1.5 PPD, QUIT 1993. Past Drug Use History: None Reported - Past Family History Father Family Medical History: Cancer, Congestive Heart Failure (CHF) Additional Family Medical History / Comment(s): ENLARGED HEART Brother(s) Family Medical History: Cancer, Liver Disease Additional Family Medical History / Comment(s): CANCER IN HIS EYE AND IN HIS LIVER. AND 2 OTHER BROTHERS FROM [place]'S Sister(s) Family Medical History: CVA/TIA Mother Family Medical History: Cancer Additional Family Medical History / Comment(s): BREAST/LUNG CANCER,LEUKEMIA Medications and Allergies Home Medications Medication Instructions Recorded Confirmed Type Brimonidine Tartrate/Timolol 1 drop BOTH EYES BID 08/20/14 01/11/21 History [Combigan 0.2%/0.5% Ophth Soln] Latanoprost Ophth [Xalatan 0.005%] 1 drop BOTH EYES HS 08/20/14 01/11/21 History Losartan/Hydrochlorothiazide 1 tab PO DAILY 08/20/14 01/11/21 History [Hyzaar 100-25 Tablet] Atorvastatin [Lipitor] 40 mg PO HS #30 tablet 09/15/17 01/11/21 Rx Apixaban [Eliquis] 5 mg PO BID 08/08/18 01/11/21 History amLODIPine [Norvasc] 10 mg PO DAILY 01/11/21 01/11/21 History Allergies Allergy/AdvReac Type Severity Reaction Status Date / Time Sulfa (Sulfonamide Allergy Unknown Verified 01/11/21 16:25 Antibiotics) Childhood Surgical - Exam Osteopathic Statement: *. No significant issues noted on an osteopathic structural exam other than those noted in the History and Physical/Consult. Vital Signs Temp Pulse Resp BP Pulse Ox 97.0 F L 61 18 151/84 96 01/11/21 13:18 01/11/21 13:18 01/11/21 13:18 01/11/21 13:18 01/11/21 13:18 - Cardiovascular Rhythm: regular - Neurologic normal coordination, normal sensation Cranial nerves II through XII are grossly intact. No carotid bruits are noted. Equal motor strength in the upper and lower extremities is documented bilaterally Results - Labs 01/11/21 14:07 01/11/21 14:07 Abnormal Lab Results - Last 24 Hours (Table) 01/11/21 01/11/21 01/11/21 Range/Units 14:07 14:07 14:07 BUN 22 H (7-17) mg/dL Glucose 111 H (74-99) mg/dL Troponin I 0.083 H* (0.000-0.034) ng/mL Urine Appearance Cloudy H (Clear) Urine Protein Trace H (Negative) Urine Blood Small H (Negative) Urine Bacteria Rare H (None) /hpf Hyaline Casts 5 H (0-2) /lpf Urine Mucus Rare H (None) /hpf 01/11/21 01/11/21 Range/Units 16:04 18:44 BUN (7-17) mg/dL Glucose (74-99) mg/dL Troponin I 0.073 H* 0.059 H* (0.000-0.034) ng/mL Urine Appearance (Clear) Urine Protein (Negative) Urine Blood (Negative) Urine Bacteria (None) /hpf Hyaline Casts (0-2) /lpf Urine Mucus (None) /hpf Diabetes panel 01/11/21 Range/Units 14:07 Sodium 140 (137-145) mmol/L Potassium 4.2 (3.5-5.1) mmol/L Chloride 103 (98-107) mmol/L Carbon Dioxide 29 (22-30) mmol/L BUN 22 H (7-17) mg/dL Creatinine 0.64 (0.52-1.04) mg/dL Glucose 111 H (74-99) mg/dL Calcium 9.6 (8.4-10.2) mg/dL AST 27 (14-36) U/L ALT 15 (4-34) U/L Alkaline Phosphatase 118 (38-126) U/L Total Protein 6.5 (6.3-8.2) g/dL Albumin 3.6 (3.5-5.0) g/dL Calcium panel 01/11/21 Range/Units 14:07 Calcium 9.6 (8.4-10.2) mg/dL Albumin 3.6 (3.5-5.0) g/dL Pituitary panel 01/11/21 Range/Units 14:07 Sodium 140 (137-145) mmol/L Potassium 4.2 (3.5-5.1) mmol/L Chloride 103 (98-107) mmol/L Carbon Dioxide 29 (22-30) mmol/L BUN 22 H (7-17) mg/dL Creatinine 0.64 (0.52-1.04) mg/dL Glucose 111 H (74-99) mg/dL Calcium 9.6 (8.4-10.2) mg/dL Adrenal panel 01/11/21 Range/Units 14:07 Sodium 140 (137-145) mmol/L Potassium 4.2 (3.5-5.1) mmol/L Chloride 103 (98-107) mmol/L Carbon Dioxide 29 (22-30) mmol/L BUN 22 H (7-17) mg/dL Creatinine 0.64 (0.52-1.04) mg/dL Glucose 111 H (74-99) mg/dL Calcium 9.6 (8.4-10.2) mg/dL Total Bilirubin 0.6 (0.2-1.3) mg/dL AST 27 (14-36) U/L ALT 15 (4-34) U/L Alkaline Phosphatase 118 (38-126) U/L Total Protein 6.5 (6.3-8.2) g/dL Albumin 3.6 (3.5-5.0) g/dL Assessment and Plan Assessment: #1: 80% right ICA stenosis as documented on CT angiogram of the neck. This is asymptomatic and has been followed by physician at outside institution. Plan: Plan: I discussed with the patient risk associated with the hemodynamically severe carotid stenosis. Currently the patient is asymptomatic. [place] to the patient the recently performed MRA demonstrated 50-75% of the right ICA and apparently her neurosurgeon has elected not to intervene on this, choosing to follow this clinically. I informed the patient that I would be happy to see her as an outpatient liver I do not want to inferior with any patient physician relationships at a [facility] been established. I did give the patient and her family my card. In the interim I ordered a carotid duplex. Time with Patient: Less than 30
[2021-01-12 12:17] LABS: Chol/HDL Ratio 3.15
[2021-01-12] MEDS: FUROSEMIDE 40 MG TAB PO SCH (12:59)
[2021-01-12] MEDS: POTASSIUM CHLORIDE ER 10 MEQ TAB.ER.PRT PO SCH (12:59)
--- NOTE | 2021-01-12 15:15 | US ---
EXAMINATION TYPE: US carotid duplex BILAT DATE OF EXAM: 01/12/2021 COMPARISON: CTA CLINICAL HISTORY: stenosis. Stenosis EXAM MEASUREMENTS: RIGHT: Peak Systolic Velocity (PSV) cm/sec ----- Right CCA: 52.3 ----- Right ICA: 335.2 ----- Right ECA: 145.6 ICA/CCA ratio: 6.4 RIGHT: End Diastole cm/sec ----- Right CCA: 11.3 ----- Right ICA: 72.1 ----- Right ECA: 0.0 LEFT: Peak Systolic Velocity (PSV) cm/sec ----- Left CCA: 61.4 ----- Left ICA: 103.4 ----- Left ECA: 53.7 ICA/CCA ratio: 1.7 LEFT: End Diastole cm/sec ----- Left CCA: 15.3 ----- Left ICA: 29.6 ----- Left ECA: 5.4 VERTEBRALS (direction of flow): Right Vertebral: Antegrade Left Vertebral: Antegrade Rhythm: Normal IMPRESSION: Heterogeneous plaque within right carotid system showing significant stenosis as visua lized on CTA, no evidence of significant stenosis left carotid system Criteria for Assigning % of Stenosis / Diameter reduction (Estimation based on the indirect measurements of the internal carotid artery velocities (ICA PSV). 1. Normal (no stenosis)=ICA PSV < 125 cm/s: ratio < 2.0: ICA EDV<40 cm/s. 2. Less than 50% stenosis=ICA PSV < 125 cm/s: ratio < 2.0: ICA EDV<40 cm/s. 3. 50 to 69% stenosis=ICA PSV of 125 to 230 cm/s: ration 2.0 ? 4.0: ICA EDV 40-100 cm/s. 4. Greater than 70% stenosis to near occlusion= ICA PSV > 230 cm/s: ratio > 4.0: ICA EDV > 100 cm/s. 5. Near occlusion= ICA PSV velocities may be low or undetectable: variable ratio and ICA EDV. 6. Total occlusion=unable to detect flow.
--- NOTE | 2021-01-12 15:24 | P.CRDCN ---
History of Present Illness Consult date: 01/12/21 Requesting physician: Vonnie Stephens Reason for Consult (text): syncope, elevated troponin Chief complaint: sudden onset dizziness, syncope History of present illness: This a pleasant 80-year-old female patient who follows with Dr. Bradford in the office. 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 Presented to the hospital following a syncopal episode. Yesterday she was up and about in her kitchen preparing for breakfast when she became suddenly very dizzy and passed out. When she woke up she was very sweaty. She overall did not feel well but is not really able to describe how she was feeling she was able to crawl to the door to unlock it and call her daughter for help. EMS was called by her daughter at that time. EKG on admission showed sinus bradycardia with sinus arrhythmia. Labs on admission show normal potassium, BUN 22, creatinine 0.64 and mildly abnormal troponins of 0.083, 0.073 and 0.059. She has been afebrile. Blood pressure has been elevated at times however this was done with automatic blood pressure cuffs and has been under good control in the 120s systolic with manual checks. He is currently on amlodipine 10 mg by mouth daily, atorvastatin 40 mg by mouth daily at bedtime, losartan hydrochlorothiazide 34255 daily and Eliquis 5 milligrams by mouth twice a day. She's been initiated on by mouth Lasix, potassium and aspirin. CT scan of the brain showed no acute abnormality. CTA showed plaque formation with approximately 80% stenosis of the proximal right internal carotid artery she's been seen and evaluated by vascular. On examination she is up and about in her room and feeling fairly well. She denies any further complaints of dizziness. She's had no chest discomfort, palpitations, dyspnea on exertion or orthopnea. She does complain of some lower extremity edema that she feels is related to injury with from falling. 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 lives alone in single level home that has 5 porch steps. has pet cat. Smoking Status: Former smoker Past Alcohol Use History: Occasional Additional Past Alcohol Use History / Comment(s): STARTED SMOKING AT AGE 16,SMOKED 1.5 PPD, QUIT 1993. Past Drug Use History: None Reported - Past Family History Father Family Medical History: Cancer, Congestive Heart Failure (CHF) Additional Family Medical History / Comment(s): ENLARGED HEART Brother(s) Family Medical History: Cancer, Liver Disease Additional Family Medical History / Comment(s): CANCER IN HIS EYE AND IN HIS LIVER. AND 2 OTHER BROTHERS FROM [place] Sister(s) Family Medical History: CVA/TIA Mother Family Medical History: Cancer Additional Family Medical History / Comment(s): BREAST/LUNG CANCER,LEUKEMIA Medications and Allergies Home Medications Medication Instructions Recorded Confirmed Type Brimonidine Tartrate/Timolol 1 drop BOTH EYES BID 08/20/14 01/11/21 History [Combigan 0.2%/0.5% Ophth Soln] Latanoprost Ophth [Xalatan 0.005%] 1 drop BOTH EYES HS 08/20/14 01/11/21 History Losartan/Hydrochlorothiazide 1 tab PO DAILY 08/20/14 01/11/21 History [Hyzaar 100-25 Tablet] Atorvastatin [Lipitor] 40 mg PO HS #30 tablet 09/15/17 01/11/21 Rx Apixaban [Eliquis] 5 mg PO BID 08/08/18 01/11/21 History amLODIPine [Norvasc] 10 mg PO DAILY 01/11/21 01/11/21 History Allergies Allergy/AdvReac Type Severity Reaction Status Date / Time Sulfa (Sulfonamide Allergy Unknown Verified 01/11/21 16:25 Antibiotics) Childhood Physical Exam Vitals: Vital Signs Temp Pulse Pulse Resp BP BP Pulse Ox 01/12/21 13:11 99 01/12/21 13:10 70 01/12/21 12:00 70 18 163/73 94 L 01/12/21 08:00 98.1 F 61 18 177/78 94 L 01/12/21 03:35 98 F 69 17 129/71 94 L 01/11/21 23:20 97.8 F 71 17 125/51 97 01/11/21 19:45 98.1 F 67 18 147/67 97 01/11/21 17:15 64 18 134/84 98 01/11/21 16:00 98.4 F 66 18 179/76 95 01/11/21 15:25 68 18 118/56 96 Intake and Output 01/12/21 01/12/21 01/12/21 06:59 14:59 22:59 Intake Total 360 Balance 360 Intake: Oral 360 Other: Voiding Method Toilet Toilet # Voids 4 1 Weight 68 kg PHYSICAL EXAMINATION: This is a 80-year-old female in no apparent distress at t he time of my examination. VITAL SIGNS: Blood pressure 177/78, heart rate 61, respirations 18, temp 98.1. Patient is 94% on room air. HEENT: Head is atraumatic, normocephalic. Pupils are equal, round. Sclerae anicteric. Conjunctivae are clear. Mucous membranes of the mouth are moist. Neck is supple. There is no elevated jugular venous pressure. Carotid bruit is heard. CHEST EXAMINATION: Clear to auscultation bilaterally. No wheezes rales or rhonchi. Respirations even and nonlabored. HEART EXAMINATION: Heart regular, positive S1 and S2. No S3. No S4. No clicks, rubs or murmurs. ABDOMEN: Soft, nontender. Bowel sounds are heard. No organomegaly noted. EXTREMITIES: 2+ peripheral pulses with evidence of trace peripheral edema and no calf tenderness noted. NEUROLOGIC EXAMINATION: Patient is awake, alert and oriented x3. Results 01/11/21 14:07 01/11/21 14:07 Cardiac Enzymes 01/11/21 01/11/21 Range/Units 16:04 18:44 Troponin I 0.073 H* 0.059 H* (0.000-0.034) ng/mL Lipids 01/12/21 Range/Units 07:23 Triglycerides 90.0 (0.0-149.0) mg/dL Cholesterol 107 (0-200) mg/dL HDL Cholesterol 34.0 L (40.0-60.0) mg/dL Cholesterol/HDL Ratio 3.15 Current Medications Generic Name Dose Route Start Last Admin Trade Name Freq PRN Reason Stop Dose Admin Amlodipine Besylate 10 mg 01/13/21 09:00 Amlodipine 10 Mg Tab PO DAILY [facility] Apixaban 5 mg 01/11/21 21:00 01/12/21 08:51 Apixaban 5 Mg Tab PO 5 mg BID [facility] Administration Protocol Aspirin 81 mg 01/12/21 09:00 01/12/21 08:52 Aspirin 81 Mg PO Not Given DAILY [facility] Atorvastatin Calcium 40 mg 01/12/21 21:00 Atorvastatin 40 Mg Tab PO HS RAUL Brimonidine Tartrate 1 drops 01/12/21 21:00 Brimonidine Tartrate 0.2% Drops 5 Ml Btl BOTH EYES BID [facility] Furosemide 40 mg 01/12/21 09:00 01/12/21 12:59 Furosemide 40 Mg Tab PO 40 mg DAILY [facility] Administration Hydrochlorothiazide 25 mg 01/13/21 09:00 Hydrochlorothiazide 25 Mg Tab PO DAILY [facility] Latanoprost 1 drops 01/12/21 21:00 Latanoprost 0.005% Ophth Drops 2.5 Ml Btl BOTH EYES HS [facility] Losartan Potassium 100 mg 01/13/21 09:00 Losartan 50 Mg Tab PO DAILY [facility] Nitroglycerin 0.4 mg 01/11/21 15:16 Nitroglycerin Sl Tabs 0.4 Mg Tab SUBLINGUAL Q5M PRN Chest Pain Pantoprazole Sodium 40 mg 01/13/21 07:30 Pantoprazole 40 Mg Tablet PO AC-BRKFST [facility] Potassium Chloride 10 meq 01/12/21 10:15 01/12/21 12:59 Potassium Chloride Er 10 Meq Tab.Er.Prt PO 10 meq DAILY [facility] Administration Timolol Maleate 1 drops 01/12/21 21:00 Timolol 0.5% Ophth Drops 5 Ml Btl BOTH EYES BID [facility] Intake and Output 01/12/21 01/12/21 01/12/21 06:59 14:59 22:59 Intake Total 360 Balance 360 Intake: Oral 360 Other: Voiding Method Toilet Toilet # Voids 4 1 Weight 68 kg 01/11/21 14:07 01/11/21 14:07 Assessment and Plan Assessment: #1 acute onset dizziness with syncope #2 history of paroxysmal atrial fibrillation, anticoagulated #3 history of mild nonobstructive CAD #4 mildly abnormal troponin #5 hypertension Plan: From cardiology's perspective we will obtain a 2-D echo with Doppler study to assess cardiac structure and function. We do not believe that elevation of troponins is related to an acute coronary event. It is not unreasonable to consider event monitor versus a loop recorder to rule out paroxysmal atrial fibrillation with significant postconversion pauses. We will continue to follow the patient and provide further recommendations accordingly. STACKING MACHINE OPERATOR note has been reviewed, I agree with a documented findings and plan of care. Patient was seen and examined.
[2021-01-12] MEDS: TIMOLOL 0.5% OPHTH DROPS 5 ML BTL BOTH EYES SCH (20:08)
[2021-01-12] MEDS: BRIMONIDINE TARTRATE 0.2% DROPS 5 ML BTL BOTH EYES SCH (20:08)
[2021-01-12] MEDS ORDERED: ATORVASTATIN 40 MG TAB PO SCH (21:00)
[2021-01-12] MEDS ORDERED: LATANOPROST 0.005% OPHTH DROPS 2.5 ML BTL BOTH EYES SCH (21:00)
[2021-01-13 00:32] LABS: Hemoglobin A1C 5.8 % (4.0-6.0)
[2021-01-13] MEDS ORDERED: PANTOPRAZOLE 40 MG TABLET PO SCH (07:30)
[2021-01-13 07:42] VITALS: RESP 16; TEMP 97.7
[2021-01-13 07:50] LABS: Basophils # (A) 0.1 k/uL (0-0.2); Basophils % (A) 1 %; Eosinophils # (A) 0.2 k/uL (0-0.7); Eosinophils % (A) 3 %; HCT 37.3 % (34.0-46.0); HGB 11.6 gm/dL (11.4-16.0); Lymphocytes # (A) 2.2 k/uL (1.0-4.8); Lymphocytes % (A) 32 %; MCH 26.8 pg (25.0-35.0); MCHC 31.1 g/dL (31.0-37.0); MCV 86.2 fL (80.0-100.0); Mean Platelet Volume 7.8; Monocytes # (A) 0.5 k/uL (0-1.0); Monocytes % (A) 7 %; Neutrophils # (A) 3.6 k/uL (1.3-7.7); Neutrophils % (A) 54 %; Platelet Count 257 k/uL (150-450); RBC 4.33 m/uL (3.80-5.40); RDW 14.7 % (11.5-15.5); WBC 6.7 k/uL (3.8-10.6)
[2021-01-13 08:03] LABS: ALT 20 U/L (4-34); AST 30 U/L (14-36); African American GFR (CKD) >90 (>60 ml/min/1.73 sqM); Albumin 3.7 g/dL (3.5-5.0); Alkaline Phosphatase 108 U/L (38-126); Anion Gap 4 mmol/L; Blood Urea Nitrogen 16 mg/dL (7-17); Calcium 9.3 mg/dL (8.4-10.2); Carbon Dioxide 34 mmol/L (22-30); Chloride 102 mmol/L (98-107); Glucose 108 mg/dL (74-99); Non-African American GFR(CKD) 84 (>60 ml/min/1.73 sqM); Potassium 3.8 mmol/L (3.5-5.1); Sodium 140 mmol/L (137-145); Total Bilirubin 0.5 mg/dL (0.2-1.3); Total Protein 6.4 g/dL (6.3-8.2)
[2021-01-13] MEDS: ASPIRIN 81 MG PO SCH (08:31)
[2021-01-13] MEDS: FUROSEMIDE 40 MG TAB PO SCH (08:31)
[2021-01-13] MEDS: APIXABAN 5 MG TAB PO SCH (08:31)
[2021-01-13] MEDS: BRIMONIDINE TARTRATE 0.2% DROPS 5 ML BTL BOTH EYES SCH (08:32)
[2021-01-13] MEDS: TIMOLOL 0.5% OPHTH DROPS 5 ML BTL BOTH EYES SCH (08:32)
[2021-01-13] MEDS: POTASSIUM CHLORIDE ER 10 MEQ TAB.ER.PRT PO SCH (08:32)
[2021-01-13] MEDS ORDERED: LOSARTAN 50 MG TAB PO SCH (09:00)
[2021-01-13] MEDS ORDERED: amLODIPine 10 MG TAB PO SCH (09:00)
[2021-01-13] MEDS ORDERED: hydroCHLOROthiazide 25 MG TAB PO SCH (09:00)
--- NOTE | 2021-01-13 09:20 | P.DS ---
Providers Date of admission: 01/11/21 15:16 Expected date of discharge: 01/13/21 Attending physician: Vonnie Stephens Consults: 01/11/21 15:16 Consult Physician Urgent Consulting Provider: Jg Patel Consult Reason/Comments: syncope, elevated troponins Do you want consulting provider notified?: Yes 01/12/21 09:53 Consult Physician Routine Consulting Provider: Elisabeth Dupont Consult Reason/Comments: carotid stenosis Do you want consulting provider notified?: Yes Primary care physician: Justus Ledbetter [facility] Course: This is an 80-year-old female patient of Dr. Ledbetter, with a past medical history of atrial fibrillation, hypertension, osteoarthritis, meningioma of the brain status post removal. Patient presented to the emergency department after she had a syncopal episode. She reports she was walking to the kitchen and she woke up on the floor. Apparently he daughter witnessed the fall and reports she did hit her head on the floor. Patient had a CT of the brain showed cerebral atrophy, chronic small vessel ischemia, excision of the large right frontal meningioma, but no bleed. She also had a CTA that showed plaque formation with approximately 80% stenosis of the proximal right internal carotid artery and no evidence of hemodynamic stenosis on the left. Chest x-ray was clear. Laboratory values show WBC 7, hemoglobin 12.6, platelet count of 262, sodium 140, potassium 4.2, BUN 22, creatinine 0.64. Troponins were elevated. Patient examined today sitting up in the bedside chair with daughter at bedside. Patient has complaints of lower extremity edema, but denies any chest pain or shortness of breath, she denies any weakness or numbness. She denies any nausea, vomiting, burning with urination, constipation or diarrhea. Vital signs are stable she is hypertensive at 177/78, she's 94% on room air afebrile 98.1, heart rate of 61. Will resume her home blood pressure medications, will obtain orthostatic blood pressures, consult with vascular for the carotid stenosis, and cardiology for the elevated troponin. Echocardiogram is pending. 01/13: Echocardiogram reveals EF of 55-60% with mild concentric left ventricular hypertrophy, mild mitral regurgitation, mild tricuspid regurgitation. Patient has been seen and followed by cardiology and recommended 30 day event monitor which is to be arranged prior to discharge and patient will follow Dr. Siddhartha Wilson in the office. Orthostatic vital signs are negative. Patient will be discharged home today in stable condition. DISCHARGE DIAGNOSES 1. Syncope. 2. Carotid stenosis. CTA showed 80% stenosis of the proximal right internal carotid artery. 3. Elevated troponin, acute coronary syndrome ruled out by cardiology. 4. Hypertension. 5. Edema. 6. History of atrial fibrillation. 7. Hyperlipidemia. DISCHARGE PLAN Home Impression and plan of care have been directed as dictated by the signing physician. Roxann Polanco nurse practitioner acting as scribe for signing ph ysician. Patient Condition at Discharge: Good Plan - Discharge Summary Discharge Rx Participant: No New Discharge Prescriptions: New Aspirin 81 mg PO DAILY chew Potassium Chloride ER [K-Dur 10] 10 meq PO DAILY #30 tab.er.prt Furosemide [Lasix] 40 mg PO DAILY #30 tab Continue Losartan/Hydrochlorothiazide [Hyzaar 100-25 Tablet] 1 tab PO DAILY Latanoprost Ophth [Xalatan 0.005%] 1 drop BOTH EYES HS Brimonidine Tartrate/Timolol [Combigan 0.2%/0.5% Ophth Soln] 1 drop BOTH EYES BID Atorvastatin [Lipitor] 40 mg PO HS #30 tablet Apixaban [Eliquis] 5 mg PO BID amLODIPine [Norvasc] 10 mg PO DAILY Discharge Medication List Brimonidine Tartrate/Timolol [Combigan 0.2%/0.5% Ophth Soln] 1 drop BOTH EYES BID 08/20/14 [History] Latanoprost Ophth [Xalatan 0.005%] 1 drop BOTH EYES HS 08/20/14 [History] Losartan/Hydrochlorothiazide [Hyzaar 100-25 Tablet] 1 tab PO DAILY 08/20/14 [History] Atorvastatin [Lipitor] 40 mg PO HS #30 tablet 09/15/17 [Rx] Apixaban [Eliquis] 5 mg PO BID 08/08/18 [History] amLODIPine [Norvasc] 10 mg PO DAILY 01/11/21 [History] Aspirin 81 mg PO DAILY chew 01/13/21 [Rx] Furosemide [Lasix] 40 mg PO DAILY #30 tab 01/13/21 [Rx] Potassium Chloride ER [K-Dur 10] 10 meq PO DAILY #30 tab.er.prt 01/13/21 [Rx] Follow up Appointment(s)/Referral(s): Flo Salinas DO [Doctor of Osteopathic Medicine] - 2 Weeks Justus Ledbetter DO [Primary Care Provider] - 1 Week Jarvis Wilson MD [STAFF PHYSICIAN] - 4 Weeks (Follow up after 30 day event monitor results are in) Discharge Disposition: HOME SELF-CARE
--- NOTE | 2021-01-13 10:32 | ECHOF ---
Referral Reason:syncope MEASUREMENTS -------- HEIGHT: 147.3 cm WEIGHT: 93.4 kg BP: 148/69 RVIDd: 3.2 cm (< 3.3) IVSd: 1.1 cm (0.6 - 1.1) LVIDd: 3.3 cm (3.9 - 5.3) LVPWd: 1.1 cm (0.6 - 1.1) IVSs: 1.9 cm LVIDs: 2.0 cm LVPWs: 2.2 cm LAESV Index (A-L): 18.84 ml/m Ao Diam: 3.1 cm (2.0 - 3.7) AV Cusp: 2.3 cm (1.5 - 2.6) LA Diam: 3.5 cm (2.7 - 3.8) MV EXCURSION: 7.809 mm (> 18.000) MV EF SLOPE: 31 mm/s (70 - 150) EPSS: 0.9 cm MV E Moises: 0.89 m/s MV DecT: 301 ms MV A Moises: 0.87 m/s MV E/A Ratio: 1.02 RAP: 5.00 mmHg RVSP: 16.18 mmHg FINDINGS -------- This was a technically difficult study with suboptimal views. The left ventricular size is normal. There is mild concentric left ventricular hypertrophy. Overa ll left ventricular systolic function is normal with, an EF between 55 - 60 %. Normal LAP Grade 1 D iastolic Dysfunction. The right ventricle is normal in size. The left atrial size is normal. Normal LA size by volume 22+/-6 ml/m2. The right atrial size is normal. Lumason used The aortic valve is trileaflet and appears structurally normal. The mitral valve is normal. Mild mitral regurgitation is present. The tricuspid valve appears structurally normal. Mild tricuspid regurgitation present. Right vent ricular systolic pressure is normal at < 35 mmHg. There is no pulmonic regurgitation present. The aortic root size is normal. IVC Not well visulized. There is no pericardial effusion. CONCLUSIONS -------- 1. The left ventricular size is normal. 2. There is mild concentric left ventricular hypertrophy. 3. Overall left ventricular systolic function is normal with, an EF between 55 - 60 %. 4. Normal LAP Grade 1 Diastolic Dysfunction. 5. Mild mitral regurgitation is present. 6. Mild tricuspid regurgitation present. 7. There is no pericardial effusion. CYBER CRIME INVESTIGATOR: Devika Kamara RDCS
[2021-01-13 11:49] VITALS: BP 160/70; PULSE 68
--- NOTE | 2021-01-13 13:20 | P.PN ---
Subjective This a pleasant 80-year-old female patient who follows with Dr. Bradford in the office. 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 Presented to the hospital following a syncopal episode. She states this is her first syncopal episode. She he was up and about in her kitchen preparing for breakfast and when she was walking back she became suddenly very dizzy and fell to the ground. She does describe it as the room spinning. She does not recall if she loss consciousness but may have for a "few seconds". Labs on admission show normal potassium, BUN 22, creatinine 0.64 and mildly abnormal troponins of 0.083, 0.073 and 0.059. EKG sinus bradycardia no acute STT wave abnormalities. CT scan of the brain showed no acute abnormality. CTA showed plaque formation with approximately 80% stenosis of the proximal right internal carotid artery she's been seen and evaluated by vascular. Echocardiogram today revealed EF 55-60%, mild MR, mild TR. Patient seen and examined at bedside, no acute distress. She denies any lightheadedness, dizziness, chest pain, shortness of breath. Blood pressure 137/65, heart rate 69, afebrile, maintaining oxygen saturations on room air. Laboratory data reviewed CBC unremarkable, sodium 140, potassium 3.8, BUN 16, serum creatinine 0.65. Orthostatics negative. She has been maintaining sinus mechanism heart rate 50 to 60s, no arrhythmia noted. GENERAL: Well-appearing, well-nourished and in no acute distress. NECK: Supple without JVD or thyromegaly. LUNGS: Breath sounds clear to auscultation bilaterally. Respiration equal and unlabored. No wheezes, rales or rhonchi. HEART: Regular rate and rhythm without murmurs, rubs or gallops. S1 and S2 heard. EXTREMITIES: Normal range of motion, no edema. No clubbing or cyanosis. Peripheral pulses intact. ASSESSMENT Acute onset dizziness with syncope History of paroxysmal atrial fibrillation, anticoagulated with Eliquis History of mild nonobstructive CAD Mildly elevated troponin not indicative of acute coronary syndrome. Hypertension PLAN Echocardiogram results reviewed. No acute findings. From a cardiology per spective we do recommend 30 day event monitor prior to patient being discharged. Patient is stable to be discharged home and follow up with Dr. Wilson in the office. Continue home cardiac medications. Nurse Practitioner note has been reviewed, I agree with a documented findings and plan of care. Patient was seen and examined. Objective - Vital Signs Vital signs: Vital Signs Temp 97.7 F 01/13/21 11:46 Pulse 68 01/13/21 11:46 Resp 16 01/13/21 12:42 BP 160/70 01/13/21 11:46 Pulse Ox 97 01/13/21 11:46 Intake & Output 01/12/21 01/13/21 01/13/21 18:59 06:59 18:59 Intake Total 600 480 Output Total 400 400 Balance 600 -400 80 Weight 93.5 kg Intake: Oral 600 480 Output: Urine 400 400 Other: Voiding Method Toilet Toilet Toilet # Voids 1 1 1 - Labs CBC & Chem 7: 01/13/21 07:20 01/13/21 07:20 Labs: Abnormal Lab Results - Last 24 Hours (Table) 01/13/21 Range/Units 07:20 Carbon Dioxide 34 H (22-30) mmol/L Glucose 108 H (74-99) mg/dL
== END 2021-01-13 14:06 | disposition home or self-care (01) ==
LOC: EC 13:15 → 3SCARD 15:16
PROVIDERS: ADMIT Family Medicine; ATTEND Family Medicine
DX: I65.21 Occlusion and stenosis of right carotid artery (principal); R55 Syncope and collapse; R77.8 Other specified abnormalities of plasma proteins; I25.10 Atherosclerotic heart disease of native coronary artery without angina pectoris; E78.5 Hyperlipidemia, unspecified; I11.9 Hypertensive heart disease without heart failure; I48.0 Paroxysmal atrial fibrillation; Z79.01 Long term (current) use of anticoagulants; Z79.82 Long term (current) use of aspirin; Z79.899 Other long term (current) drug therapy; Z80.1 Family history of malignant neoplasm of trachea, bronchus and lung; Z80.6 Family history of leukemia; Z82.49 Family history of ischemic heart disease and other diseases of the circulatory system; Z86.011 Personal history of benign neoplasm of the brain; Z87.891 Personal history of nicotine dependence; Z90.710 Acquired absence of both cervix and uterus
CPT/HCPCS: 93005 ×2; 96360; 96361; 99285; 36415; 97161; 80061; 80053 ×2; 84484; 85025 ×2; 85610; 85730; 81001; 83036; 71046; 93880; 70496; 70450; 70498; G0378 ×3; C8929; Q9950; Q9967; 93306

== ENCOUNTER 2021-09-01 13:17 | Emergency (ER) | payer MEDICARE ==
[2021-09-01 14:02] VITALS: BP 159/82; PULSE 78; RESP 16; TEMP 98.7
--- NOTE | 2021-09-01 14:49 | US ---
EXAMINATION TYPE: US venous doppler duplex LE RT DATE OF EXAM: 09/01/2021 2:30 PM COMPARISON: NONE CLINICAL HISTORY: right leg pain and swelling. Pt states palpable lump right lower anterior leg SIDE PERFORMED: Right TECHNIQUE: The lower extremity deep venous system is examined utilizing real time linear array sonog jeri with graded compression, doppler sonography and color-flow sonography. VESSELS IMAGED: Common Femoral Vein Deep Femoral Vein Greater Saphenous Vein * Femoral Vein Popliteal Vein Small Saphenous Vein * Proximal Calf Veins (* superficial vessels) Right Leg: Negative for DVT, in area of pt's lump there is a possible fluid collection= 1.9 x 0.5 x 1.5 cm IMPRESSION: No evidence for DVT at this time.
--- NOTE | 2021-09-01 15:46 | ED ---
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 Her merchandise flow manager advised evaluation to rule out a DVT. Patient states that for the last couple of days, her leg feels like it is throbbing at night. Denies any problems with ambulation. Her leg is mildly tender to the touch. She has had cellulitis in her lower extremities the past. Denies any fevers or chills, recent injury, prolonged immobilization, recent travel, chest pain, or shortness of breath. MD Complaint: extremity pain, extremity swelling Location: right, lower extremity History of Same: Yes Radiation: distal Worsens with: palpation Associated Symptoms: denies other symptoms - Related Data Home Medications Medication Instructions Recorded Confirmed Brimonidine Tartrate/Timolol 1 drop BOTH EYES BID 08/20/14 09/01/21 [Combigan 0.2%/0.5% Ophth Soln] Latanoprost Ophth [Xalatan 0.005%] 1 drop BOTH EYES HS 08/20/14 09/01/21 Losartan/Hydrochlorothiazide 1 tab PO DAILY 08/20/14 09/01/21 [Hyzaar 100-25 Tablet] Apixaban [Eliquis] 5 mg PO BID 08/08/18 09/01/21 Fluconazole [Diflucan] 150 mg PO DAILY PRN 09/01/21 09/01/21 Furosemide [Lasix] 40 mg PO DAILY PRN 09/01/21 09/01/21 Potassium Chloride ER [K-Dur 10] 10 meq PO DAILY PRN 09/01/21 09/01/21 Previous Rx's Medication Instructions Recorded Atorvastatin [Lipitor] 40 mg PO HS #30 tablet 09/15/17 Cephalexin [Keflex] 1,000 mg PO Q12HR 7 Days #28 cap 09/01/21 Allergies Allergy/AdvReac Type Severity Reaction Status Date / Time Sulfa (Sulfonamide Allergy Unknown Verified 09/01/21 16:58 Antibiotics) Childhood Review of Systems ROS Statement: Those systems with pertinent positive or pertinent negative responses have been documented in the HPI. ROS Other: All systems not noted in ROS Statement are negative. Constitutional: Denies: fever, chills ENT: Denies: ear pain, throat pain Respiratory: Denies: cough, dyspnea Cardiovascular: Denies: chest pain, palpitations Endocrine: Denies: fatigue Gastrointestinal: Denies: abdominal pain, nausea, vomiting, diarrhea Skin: Reports: rash (Right lower extremity) Neurological: Denies: headache 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" and "meningiomas 3 on brain" MRA done recently History of Any Multi-Drug Resistant Organisms: None Reported Past Surgical History: Cholecystectomy, Heart Catheterization, Hysterectomy Additional Past Surgical History / Comment(s): rt cataract sx, injection lt foot, menigiomas removed, cataract surgery Past Anesthesia/Blood Transfusion Reactions: No Reported Reaction Past Psychological History: No Psychological Hx Reported Smoking Status: Former smoker Past Alcohol Use History: Occasional Past Drug Use History: None Reported - Past Family History Father Family Medical History: Cancer, Congestive Heart Failure (CHF) Additional Family Medical History / Comment(s): ENLARGED HEART Brother(s) Family Medical History: Cancer, Liver Disease Additional Family Medical History / Comment(s): CANCER IN HIS EYE AND IN HIS LIVER. AND 2 OTHER BROTHERS FROM [place] Sister(s) Family Medical History: CVA/TIA Mother Family Medical History: Cancer Additional Family Medical History / Comment(s): BREAST/LUNG CANCER,LEUKEMIA General Exam Limitations: no limitations General appearance: alert, in no apparent distress Head exam: Present: atraumatic, normocephalic, normal inspection Respiratory exam: Present: normal lung sounds bilaterally. Absent: respiratory distress, wheezes, rales, rhonchi, stridor Cardiovascular Exam: Present: regular rate, normal rhythm, normal heart sounds. Absent: systolic murmur, diastolic murmur, rubs, gallop, clicks Neurological exam: Present: alert, oriented X3, CN II-XII intact Psychiatric exam: Present: normal affect, normal mood Skin exam: Present: dry (Skin of the bilateral lower extremities is shiny and flaky.), other (Right LE: Erythema and increased warmth extending from the center of the anterior aspect of the calf and spreading distally to the ankle.) Course Vital Signs 09/01/21 13:57 Temperature 98.7 F Pulse Rate 78 Respiratory 16 Rate Blood Pressure 159/82 O2 Sat by Pulse 94 L Oximetry Medical Decision Making - Medical Decision Making This is an 80-year-old female who presents to the emergency department with erythema and swelling to the right lower extremity. Ultrasound of the right lower extremity did not identify a DVT. Given that the patient is able to ambulate, and there is no known injury to the area, it is unlikely that this is a skeletal injury. The erythema, increased warmth, and tenderness, suggests that this may be a cellulitis. The patient has significant flaking of the lower extremities, with scattered areas of abrasions. It is likely she acquired a cellulitis from one of these minor injuries. Will treat the patient with a 7 day course of Keflex. Return precautions reviewed in depth, the patient is instructed to return to the emergency department if she develops symptoms including but not limited to fevers, chills, increased redness, increased swelling, or increased pain. Patient verbalized understanding. This case was discussed in detail with the attending ED physician. Presentation, findings, and treatment plan discussed in detail as well. - Lab Data Result diagrams: 09/01/21 16:03 09/01/21 16:03 Lab Results 09/01/21 09/01/21 09/01/21 Range/Units 16:03 16:03 16:03 WBC 7.4 (3.8-10.6) k/uL RBC 4.62 (3.80-5.40) m/uL Hgb 12.3 (11.4-16.0) gm/dL Hct 39.2 (34.0-46.0) % MCV 84.7 (80.0-100.0) fL MCH 26.7 (25.0-35.0) pg MCHC 31.5 (31.0-37.0) g/dL RDW 15.3 (11.5-15.5) % Plt Count 285 (150-450) k/uL MPV 7.8 Neutrophils % 54 % Lymphocytes % 34 % Monocytes % 6 % Eosinophils % 2 % Basophils % 1 % Neutrophils # 4.0 (1.3-7.7) k/uL Lymphocytes # 2.5 (1.0-4.8) k/uL Monocytes # 0.5 (0-1.0) k/uL Eosinophils # 0.2 (0-0.7) k/uL Basophils # 0.1 (0-0.2) k/uL Hypochromasia Slight ESR 8 (0-20) mm/hr Sodium 138 (137-145) mmol/L Potassium 4.4 (3.5-5.1) mmol/L Chloride 102 (98-107) mmol/L Carbon Dioxide 29 (22-30) mmol/L Anion Gap 7 mmol/L BUN 21 H (7-17) mg/dL Creatinine 0.65 (0.52-1.04) mg/dL Est GFR (CKD-EPI)AfAm >90 (>60 ml/min/1.73 sqM) Est GFR (CKD-EPI)NonAf 84 (>60 ml/min/1.73 sqM) Glucose 119 H (74-99) mg/dL Plasma Lactic Acid Russell 0.8 (0.7-2.0) mmol/L Uric Acid 5.6 (3.7-7.4) mg/dL Calcium 9.1 (8.4-10.2) mg/dL Total Bilirubin 1.0 (0.2-1.3) mg/dL AST 37 H (14-36) U/L ALT 16 (4-34) U/L Alkaline Phosphatase 103 (38-126) U/L C-Reactive Protein 1.6 H (<1.0) mg/dL Total Protein 7.5 (6.3-8.2) g/dL Albumin 4.0 (3.5-5.0) g/dL - Radiology Data Radiology results: report reviewed, image reviewed Disposition Clinical Impression: Cellulitis of right leg Disposition: HOME SELF-CARE Instructions (If sedation given, give patient instructions): Cellulitis (ED) Additional Instructions: Return to the emergency department, if you experience increased redness, swelling, pain, or fevers/chills. Take the antibiotic as prescribed for 7 days. Follow-up with your primary care physician a 1-2 days. Prescriptions: Cephalexin [Keflex] 1,000 mg PO Q12HR 7 Days #28 cap Is patient prescribed a controlled substance at d/c from ED?: No Referrals: Justus Ledbetter DO [Primary Care Provider] - 1-2 days
[2021-09-01 16:15] LABS: Basophils # (A) 0.1 k/uL (0-0.2); Basophils % (A) 1 %; Eosinophils # (A) 0.2 k/uL (0-0.7); Eosinophils % (A) 2 %; HCT 39.2 % (34.0-46.0); HGB 12.3 gm/dL (11.4-16.0); Hypochromasia Slight; Lymphocytes # (A) 2.5 k/uL (1.0-4.8); Lymphocytes % (A) 34 %; MCH 26.7 pg (25.0-35.0); MCHC 31.5 g/dL (31.0-37.0); MCV 84.7 fL (80.0-100.0); Mean Platelet Volume 7.8; Monocytes # (A) 0.5 k/uL (0-1.0); Monocytes % (A) 6 %; Neutrophils % (A) 54 %; Platelet Count 285 k/uL (150-450); RBC 4.62 m/uL (3.80-5.40); RDW 15.3 % (11.5-15.5); WBC 7.4 k/uL (3.8-10.6)
[2021-09-01 16:27] LABS: ALT 16 U/L (4-34); AST 37 U/L (14-36); African American GFR (CKD) >90 (>60 ml/min/1.73 sqM); Alkaline Phosphatase 103 U/L (38-126); Anion Gap 7 mmol/L; Blood Urea Nitrogen 21 mg/dL (7-17); C Reactive Protein 1.6 mg/dL (<1.0); Calcium 9.1 mg/dL (8.4-10.2); Carbon Dioxide 29 mmol/L (22-30); Chloride 102 mmol/L (98-107); Glucose 119 mg/dL (74-99); Non-African American GFR(CKD) 84 (>60 ml/min/1.73 sqM); Potassium 4.4 mmol/L (3.5-5.1); Sodium 138 mmol/L (137-145); Total Protein 7.5 g/dL (6.3-8.2); Uric Acid 5.6 mg/dL (3.7-7.4)
[2021-09-01 17:03] LABS: Erythrocyte Sedimentation Rate 8 mm/hr (0-20)
== END 2021-09-01 18:52 | disposition home or self-care (01) ==
LOC: EC 13:17
DX: L03.115 Cellulitis of right lower limb (principal); I10 Essential (primary) hypertension; M19.90 Unspecified osteoarthritis, unspecified site; I48.91 Unspecified atrial fibrillation; Z79.01 Long term (current) use of anticoagulants; Z88.2 Allergy status to sulfonamides; Z90.49 Acquired absence of other specified parts of digestive tract; Z90.710 Acquired absence of both cervix and uterus; Z87.891 Personal history of nicotine dependence
CPT/HCPCS: 36415; 80053; 83605; 84550; 85025; 85652; 86140; 99284

== ENCOUNTER → 2021-12-25 | Outpatient (CLI) | payer MEDICARE ==
--- NOTE | 2021-12-25 14:08 | XR ---
EXAMINATION TYPE: XR tibia fibula RT DATE OF EXAM: 12/25/2021 CLINICAL HISTORY: pain TECHNIQUE: AP and lateral images of the right tibia and fibula are obtained. COMPARISON: None. FINDINGS: There is no acute fracture/dislocation evident. The joint spaces appear within normal elise its. The overlying soft tissue appears unremarkable. IMPRESSION: There is no acute fracture or dislocation seen. ICD 10 NO FRACTURE, INITIAL EVALUATION
== END | disposition home or self-care (01) ==
LOC: RADXRMAIN 13:42
PROVIDERS: ATTEND Family Medicine
DX: M79.661 Pain in right lower leg (principal)

== ENCOUNTER 2022-01-03 02:03 | Emergency (ER) | payer MEDICARE ==
[2022-01-03 02:15] VITALS: RESP 20
--- NOTE | 2022-01-03 02:25 | ED ---
Chest Pain HPI - General Chief Complaint: Chest Pain Stated Complaint: Chest Pain Time Seen by Provider: 01/03/22 02:17 Source: EMS Mode of arrival: EMS Limitations: no limitations - Related Data Home Medications Medication Instructions Recorded Confirmed Brimonidine Tartrate/Timolol 1 drop BOTH EYES BID 08/20/14 09/01/21 [Combigan 0.2%/0.5% Ophth Soln] Latanoprost Ophth [Xalatan 0.005%] 1 drop BOTH EYES HS 08/20/14 09/01/21 Losartan/Hydrochlorothiazide 1 tab PO DAILY 08/20/14 09/01/21 [Hyzaar 100-25 Tablet] Apixaban [Eliquis] 5 mg PO BID 08/08/18 09/01/21 Fluconazole [Diflucan] 150 mg PO DAILY PRN 09/01/21 09/01/21 Furosemide [Lasix] 40 mg PO DAILY PRN 09/01/21 09/01/21 Potassium Chloride ER [K-Dur 10] 10 meq PO DAILY PRN 09/01/21 09/01/21 Previous Rx's Medication Instructions Recorded Atorvastatin [Lipitor] 40 mg PO HS #30 tablet 09/15/17 Cephalexin [Keflex] 1,000 mg PO Q12HR 7 Days #28 cap 09/01/21 Allergies Allergy/AdvReac Type Severity Reaction Status Date / Time monosodium glutamate [MSG] Allergy Chest Pain Verified 01/03/22 02:15 Sulfa (Sulfonamide Allergy Unknown Verified 09/01/21 16:58 Antibiotics) Childhood Review of Systems ROS Statement: Those systems with pertinent positive or pertinent negative responses have been documented in the HPI. ROS Other: All systems not noted in ROS Statement are negative. 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" and "meningiomas 3 on brain" MRA done recently History of Any Multi-Drug Resistant Organisms: None Reported Past Surgical History: Cholecystectomy, Heart Catheterization, Hysterectomy Additional Past Surgical History / Comment(s): rt cataract sx, injection lt foot, menigiomas removed, cataract surgery Past Anesthesia/Blood Transfusion Reactions: No Reported Reaction Past Psychological History: No Psychological Hx Reported Smoking Status: Former smoker Past Alcohol Use History: Occasional Past Drug Use History: None Reported - Past Family History Father Family Medical History: Cancer, Congestive Heart Failure (CHF) Additional Family Medical History / Comment(s): ENLARGED HEART Brother(s) Family Medical History: Cancer, Liver Disease Additional Family Medical History / Comment(s): CANCER IN HIS EYE AND IN HIS LIVER. 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
[2022-01-03 03:26] LABS: Basophils % (A) 0 %; Eosinophils # (A) 0.1 k/uL (0-0.7); Eosinophils % (A) 1 %; HCT 40.5 % (34.0-46.0); HGB 13.1 gm/dL (11.4-16.0); Lymphocytes # (A) 1.9 k/uL (1.0-4.8); Lymphocytes % (A) 16 %; MCH 27.3 pg (25.0-35.0); MCHC 32.2 g/dL (31.0-37.0); MCV 84.8 fL (80.0-100.0); Mean Platelet Volume 7.8; Monocytes # (A) 0.7 k/uL (0-1.0); Monocytes % (A) 6 %; Neutrophils % (A) 75 %; Platelet Count 257 k/uL (150-450); RBC 4.78 m/uL (3.80-5.40); RDW 15.6 % (11.5-15.5)
[2022-01-03 03:35] LABS: Albumin 4.2 g/dL (3.5-5.0); Calcium 9.7 mg/dL (8.4-10.2); Magnesium 1.7 mg/dL (1.6-2.3); Potassium 4.1 mmol/L (3.5-5.1); Total Bilirubin 0.8 mg/dL (0.2-1.3); Total Protein 7.5 g/dL (6.3-8.2)
[2022-01-03 03:49] LABS: Prothrombin Time 10.8 sec (9.0-12.0)
[2022-01-03] MEDS ORDERED: MAG HYDROX/AL HYDROX/SIMETH 30 ML, HYOSCYAMINE ELIXIR 10 ML PO STA ×2 (04:18)
[2022-01-03 04:54] VITALS: BP 171/79; PULSE 79
--- NOTE | 2022-01-03 04:55 | CT ---
EXAMINATION TYPE: CT angio chest DATE OF EXAM: 01/03/2022 COMPARISON: None HISTORY: dysphagia w/ pain in throat down to chest CT DLP: 1225.3 mGycm Automated exposure control for dose reduction was used. CONTRAST: Performed with IV Contrast, patient injected with 95 mL of Isovue 370. Images obtained from the thoracic inlet to the diaphragm with IV contrast. There are 3-D post process ed images. There is 1 cm noncalcified nodule lateral right upper lobe. The other lung hughes are clear. No pleur al effusion. There is subsegmental atelectasis right posterior lung base. There is no pericardial effusion. There is normal contrast opacification of the pulmonary arteries. N o filling defect. Thoracic aorta is intact. No aneurysm. There is degenerative spurring in the thoracic spine. No compression fracture. Sternum is intact. IMPRESSION: No evidence of pulmonary embolism. Noncalcified right upper lobe nodule. Mild fibrotic changes and robbins bsegmental atelectasis right lung base.
[2022-01-03] MEDS ORDERED: FAMOTIDINE 20 MG TAB PO STA (05:07)
[2022-01-03] MEDS ORDERED: SUCRALFATE 1 GM TAB PO STA (05:07)
[2022-01-03 05:22] VITALS: TEMP 97.8
== END 2022-01-03 05:20 | disposition home or self-care (01) ==
LOC: EC 02:03
DX: K21.9 Gastro-esophageal reflux disease without esophagitis (principal); K29.70 Gastritis, unspecified, without bleeding; I10 Essential (primary) hypertension; I48.91 Unspecified atrial fibrillation; M19.90 Unspecified osteoarthritis, unspecified site; Z87.891 Personal history of nicotine dependence; Z88.2 Allergy status to sulfonamides; Z88.8 Allergy status to other drugs, medicaments and biological substances; Z79.899 Other long term (current) drug therapy; Z79.01 Long term (current) use of anticoagulants
CPT/HCPCS: 36415; 93005; 83880; 80053; 83690; 83735; 84484; 85025; 85610; 85730; 71275; 99285; Q9967

== ENCOUNTER → 2022-02-04 | Outpatient (CLI) | payer MEDICARE ==
--- NOTE | 2022-02-04 18:28 | NM ---
EXAMINATION TYPE: NM bone 3 phase DATE OF EXAM: 02/04/2022 COMPARISON: Radiographs 12/25/2021 of the right tibia/fibula HISTORY: 81-year-old female M86.169 OTHER ACUTE OSTEOMYELITIS, UNSPECIFIED TIB TECHNIQUE: Triple phase bone scintigraphy was performed following the injection of 24.8 mCi Tc 99m MD P. Immediate images and 4 hours post injection images acquired. Imaging centered at the bilateral le gs. FINDINGS: Flow, pool, and delayed images show no asymmetric increased activity on either side. IMPRESSION: No scintigraphic evidence for osteomyelitis on the right or asymmetric increased activity on the right compared to the left.
== END | disposition home or self-care (01) ==
LOC: RADNMMAIN 07:35
PROVIDERS: ATTEND Family Medicine
DX: M86.169 Other acute osteomyelitis, unspecified tibia and fibula (principal)
CPT/HCPCS: 78315; A9503

== ENCOUNTER 2022-05-22 10:45 | Observation (INO) | payer MEDICARE ==
--- NOTE | 2022-05-22 11:27 | ED ---
General Adult HPI - General Chief complaint: Fall Stated complaint: Fall Time Seen by Provider: 05/22/22 10:50 Source: patient, EMS, RN notes reviewed, old records reviewed Mode of arrival: EMS - History of Present Illness Initial comments: As is an 81-year-old female who presents to the emergency department with dizziness. Patient states became so dizzy today that she fell on her left knee. Patient states she did not hit her head or neck. Patient denies any upper extremity injury. Patient denies any back injury patient denies any chest or abdominal injury. Patient's only complaint is left knee pain. Patient states the dizziness that she experienced she states is that her head feels like it spinning when this occurs per patient states this is happened multiple times the past and been worked up for and they don't know what is causing it. Patient states she did have some brain surgery for some meningiomas a few years ago and since then she's had these episodes of dizziness. Patient denies any recent fever chills or cough. Patient denies any chest pain palpitations. Patient denies any shortness of breath or difficulty breathing. Patient denies any hip pain. - Related Data Home Medications Medication Instructions Recorded Confirmed Brimonidine Tartrate/Timolol 1 drop BOTH EYES BID 08/20/14 05/22/22 [Combigan 0.2%/0.5% Ophth Soln] Latanoprost Ophth [Xalatan 0.005%] 1 drop BOTH EYES HS 08/20/14 05/22/22 Apixaban [Eliquis] 5 mg PO BID 08/08/18 05/22/22 Atorvastatin [Lipitor] 40 mg PO DAILY 05/22/22 05/22/22 Losartan Potassium 100 mg PO DAILY 05/22/22 05/22/22 Allergies Allergy/AdvReac Type Severity Reaction Status Date / Time Sulfa (Sulfonamide Allergy Unknown Verified 05/22/22 12:22 Antibiotics) Childhood monosodium glutamate [MSG] AdvReac Chest Pain Verified 05/22/22 12:22 Review of Systems ROS Statement: Those systems with pertinent positive or pertinent negative responses have been documented in the HPI. ROS Other: All systems not noted in ROS Statement are negative. 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" and "meningiomas 3 on brain" MRA done recently History of Any Multi-Drug Resistant Organisms: None Reported Past Surgical History: Cholecystectomy, Heart Catheterization, Hysterectomy Additional Past Surgical History / Comment(s): rt cataract sx, injection lt foot, menigiomas removed, cataract surgery Past Anesthesia/Blood Transfusion Reactions: No Reported Reaction Past Psychological History: No Psychological Hx Reported Smoking Status: Former smoker Past Alcohol Use History: Occasional Past Drug Use History: None Reported - Past Family History Father Family Medical History: Cancer, Congestive Heart Failure (CHF) Additional Family Medical History / Comment(s): ENLARGED HEART Brother(s) Family Medical History: Cancer, Liver Disease Additional Family Medical History / Comment(s): CANCER IN HIS EYE AND IN HIS LIVER. AND 2 OTHER BROTHERS FROM [place]'S Sister(s) Family Medical History: CVA/TIA Mother Family Medical History: Cancer Additional Family Medical History / Comment(s): BREAST/LUNG CANCER,LEUKEMIA General Exam - General Exam Comments Initial Comments: GENERAL: Patient is well-developed and well-nourished. Patient is nontoxic and well- hydrated and is in no acute distress. ENT: Neck is soft and supple. No significant lymphadenopathy is noted. Oropharynx is clear. Moist mucous membranes. Neck has full range of motion without eliciting any pain. EYES: The sclera were anicteric and conjunctiva were pink and moist. Extraocular movements were intact and pupils were equal round and reactive to light. Eyelids were unremarkable. PULMONARY: Unlabored respirations. Good breath sounds bilaterally. No audible rales rhonchi or wheezing was noted. CARDIOVASCULAR: There is a regular rate and rhythm without any murmurs gallops or rubs. ABDOMEN: Soft and nontender with normal bowel sounds. SKIN: Skin is clear with no lesions or rashes and otherwise unremarkable. NEUROLOGIC: Patient is alert and oriented x3. Cranial nerves II through XII are grossly intact. Motor and sensory are also intact. Normal speech, volume and content. Symmetrical smile. MUSCULOSKELETAL: Left knee is very tender in the lateral aspect. He also appears to be somewhat swollen. Patient has no hip tenderness or ankle tenderness. LYMPHATICS: No significant lymphadenopathy is noted PSYCHIATRIC: Normal psychiatric evaluation. Course Vital Signs 05/22/22 05/22/22 10:49 13:36 Temperature 97.7 F Pulse Rate 75 74 Respiratory 18 18 Rate Blood Pressure 156/81 134/87 O2 Sat by Pulse 96 97 Oximetry Medical Decision Making - Medical Decision Making EKG is interpreted by me. EKG shows sinus rhythm at 65 bpm CO interval 182 QRS is 82 QT interval 384 QTC is 396. Patient's EKG shows no ST segment elevation or depression. Patient's x-ray of the knee was interpreted by me. I see no acute abnormality of the knee. CT of the brain was interpreted by me I see no intracranial hemorrhage or swelling or midline shift. Patient's troponin was mildly elevated patient was not experiencing chest pain or difficulty breathing however because of the elevated troponin we will keep the patient and do serial troponins on the patient. I spoke with Dr. ibanez he agreed to admit the patient admitted the patient wrote admitting orders - Lab Data Result diagrams: 05/22/22 12:03 05/22/22 12:03 Lab Results 05/22/22 05/22/22 05/22/22 Range/Units 11:42 12:03 12:03 WBC 10.5 (3.8-10.6) k/uL RBC 4.41 (3.80-5.40) m/uL Hgb 11.9 (11.4-16.0) gm/dL Hct 37.1 (34.0-46.0) % MCV 84.2 (80.0-100.0) fL MCH 27.1 (25.0-35.0) pg MCHC 32.2 (31.0-37.0) g/dL RDW 15.1 (11.5-15.5) % Plt Count 208 (150-450) k/uL MPV 9.4 Neutrophils % 77 % Lymphocytes % 17 % Monocytes % 5 % Eosinophils % 0 % Basophils % 0 % Neutrophils # 8.1 H (1.3-7.7) k/uL Lymphocytes # 1.7 (1.0-4.8) k/uL Monocytes # 0.5 (0-1.0) k/uL Eosinophils # 0.0 (0-0.7) k/uL Basophils # 0.0 (0-0.2) k/uL Hypochromasia Slight PT (9.0-12.0) sec INR (<1.2) APTT (22.0-30.0) sec Sodium 140 (137-145) mmol/L Potassium 4.5 (3.5-5.1) mmol/L Chloride 105 (98-107) mmol/L Carbon Dioxide 28 (22-30) mmol/L Anion Gap 7 mmol/L BUN 22 H (7-17) mg/dL Creatinine 0.54 (0.52-1.04) mg/dL Est GFR (CKD-EPI)AfAm >90 (>60 ml/min/1.73 sqM) Est GFR (CKD-EPI)NonAf 88 (>60 ml/min/1.73 sqM) Glucose 105 H (74-99) mg/dL Calcium 8.8 (8.4-10.2) mg/dL Magnesium 1.8 (1.6-2.3) mg/dL Total Bilirubin 0.9 (0.2-1.3) mg/dL AST 32 (14-36) U/L ALT 26 (4-34) U/L Alkaline Phosphatase 124 (38-126) U/L Troponin I (0.000-0.034) ng/mL Total Protein 7.1 (6.3-8.2) g/dL Albumin 4.0 (3.5-5.0) g/dL Urine Color Colorless Urine Appearance Clear (Clear) Urine pH 7.0 (5.0-8.0) Ur Specific [place] 1.007 (1.001-1.035) Urine Protein Negative (Negative) Urine Glucose (UA) Negative (Negative) Urine Ketones Negative (Negative) Urine Blood Negative (Negative) Urine Nitrite Negative (Negative) Urine Bilirubin Negative (Negative) Urine Urobilinogen <2.0 (<2.0) mg/dL Ur Leukocyte Esterase Negative (Negative) 05/22/22 05/22/22 Range/Units 12:03 12:55 WBC (3.8-10.6) k/uL RBC (3.80-5.40) m/uL Hgb (11.4-16.0) gm/dL Hct (34.0-46.0) % MCV (80.0-100.0) fL MCH (25.0-35.0) pg MCHC (31.0-37.0) g/dL RDW (11.5-15.5) % Plt Count (150-450) k/uL MPV Neutrophils % % Lymphocytes % % Monocytes % % Eosinophils % % Basophils % % Neutrophils # (1.3-7.7) k/uL Lymphocytes # (1.0-4.8) k/uL Monocytes # (0-1.0) k/uL Eosinophils # (0-0.7) k/uL Basophils # (0-0.2) k/uL Hypochromasia PT 10.0 (9.0-12.0) sec INR 0.9 (<1.2) APTT 27.9 (22.0-30.0) sec Sodium (137-145) mmol/L Potassium (3.5-5.1) mmol/L Chloride (98-107) mmol/L Carbon Dioxide (22-30) mmol/L Anion Gap mmol/L BUN (7-17) mg/dL Creatinine (0.52-1.04) mg/dL Est GFR (CKD-EPI)AfAm (>60 ml/min/1.73 sqM) Est GFR (CKD-EPI)NonAf (>60 ml/min/1.73 sqM) Glucose (74-99) mg/dL Calcium (8.4-10.2) mg/dL Magnesium (1.6-2.3) mg/dL Total Bilirubin (0.2-1.3) mg/dL AST (14-36) U/L ALT (4-34) U/L Alkaline Phosphatase (38-126) U/L Troponin I 0.087 H* (0.000-0.034) ng/mL Total Protein (6.3-8.2) g/dL Albumin (3.5-5.0) g/dL Urine Color Urine Appearance (Clear) Urine pH (5.0-8.0) Ur Specific [place] (1.001-1.035) Urine Protein (Negative) Urine Glucose (UA) (Negative) Urine Ketones (Negative) Urine Blood (Negative) Urine Nitrite (Negative) Urine Bilirubin (Negative) Urine Urobilinogen (<2.0) mg/dL Ur Leukocyte Esterase (Negative) Disposition Clinical Impression: Vertigo, Fall, Elevated troponin Disposition: ADMITTED IP TO THIS HOSP Referrals: Justus Ledbetter DO [Primary Care Provider] - 1-2 days Time of Disposition: 13:49
--- NOTE | 2022-05-22 11:51 | XR ---
EXAMINATION TYPE: XR knee complete LT DATE OF EXAM: 05/22/2022 COMPARISON: None HISTORY: Trauma, pain, fall TECHNIQUE: 3 view left knee FINDINGS: There is narrowing of the lateral compartment joint space. Lateral tibial plateau spurring is present. Tiny medial femoral condylar spur may be present. Medial compartment joint space is prese rved. Patellofemoral joint space narrowing is present with posterior patellar spurring inferiorly and to a lesser degree superiorly. No joint effusion is evident. No acute fractures or dislocations are evident. Follow up exams can be performed 7-10 days from acute trauma for continued pain. IMPRESSION: 1. Degenerative joint changes lateral compartment and patellofemoral compartment. 2. No acute osseous abnormality.
--- NOTE | 2022-05-22 11:52 | XR ---
EXAMINATION TYPE: XR chest 2V DATE OF EXAM: 05/22/2022 COMPARISON: 01/11/2021 INDICATION: Chest pain TECHNIQUE: Single frontal view of the chest is obtained. FINDINGS: The heart size is normal. The pulmonary vasculature is normal. The lungs are clear. IMPRESSION: 1. No acute pulmonary process.
--- NOTE | 2022-05-22 12:14 | CT ---
EXAMINATION TYPE: CT brain cspine wo con DATE OF EXAM: 05/22/2022 COMPARISON: 01/11/2021 brain. 09/14/2017 neck. HISTORY: 81-year-old female Dizziness, fall. History of meningioma surgery CT DLP: 1698.6 mGycm Automated exposure control for dose reduction was used. Technique: Examination of the head was done in axial plane without intravenous contrast. Coronal and sagittal reconstructions performed. CT of the cervical spine was obtained in axial plane without intravenous injection of contrast mater ial. Coronal and sagittal reformatted images were obtained from the axial views for evaluation of f ractures, spinal alignment and canal. FINDINGS: Head: Previous right frontal craniotomy flap. Underlying resection cavity anterior right frontal lobe. Mild ventricular prominence is unchanged, likely due to central cerebral atrophy. Atelectatic calcifi cations within the carotid siphons. No evidence for acute intracranial hemorrhage, acute ischemic change, mass, mass effect, midline shif t, or extra-axial fluid collection. No effacement of cerebral sulci or basal subarachnoid cisterns. G ray-white matter differentiation is maintained. Moderate to severe patchy and confluent white matter hypodensities posterior hemispheres. Mild mucosal thickening scattered throughout the ethmoid air cells. Marginating nasal septum. Mastoid air cells well pneumatized. Cervical spine: No craniocervical junction abnormality, predental space widening, or prevertebral soft tissue swellin g. Advanced hypertrophic facet arthropathy especially upper and mid cervical spine towards the left. Severe degenerative disc disease T3-T4. No acute fracture of the cervical spine. Alignment is maintained. Assessment of the spinal canal from C5-C6 and below is limited due to artifact from patient's shoulde rs. Disc osteophyte complex at C6-C7 may contribute to a mild spinal canal stenosis. At C4-C5, there is moderate left neuroforaminal stenosis. At C5-C6, there is [id number] right neuroforaminal stenosis. Visualized upper lungs shows a 1.0 cm pulmonary nodule. This appears slightly larger compared to 09/14 where it measured 7 mm. Sagittal and coronal reformatted images confirm above findings. COMBINED IMPRESSION: 1. Previous right frontal craniotomy flap with underlying anterior frontal lobe resection cavity. Mil d to moderate generalized atrophy and patchy and confluent burden of chronic small vessel ischemic di sease. No acute intracranial abnormality seen. 2. No acute fracture or malalignment of the cervical spine. 3. A 1 cm right upper lobe pulmonary nodule appears increased in size from 2018 where it measured 7 m m. Recommend pulmonary medicine referral for appropriate subsequent surveillance.
[2022-05-22 12:43] LABS: ALT 26 U/L (4-34); AST 32 U/L (14-36); African American GFR (CKD) >90 (>60 ml/min/1.73 sqM); Alkaline Phosphatase 124 U/L (38-126); Anion Gap 7 mmol/L; Blood Urea Nitrogen 22 mg/dL (7-17); Calcium 8.8 mg/dL (8.4-10.2); Carbon Dioxide 28 mmol/L (22-30); Chloride 105 mmol/L (98-107); Glucose 105 mg/dL (74-99); Magnesium 1.8 mg/dL (1.6-2.3); Non-African American GFR(CKD) 88 (>60 ml/min/1.73 sqM); Potassium 4.5 mmol/L (3.5-5.1); Sodium 140 mmol/L (137-145); Total Bilirubin 0.9 mg/dL (0.2-1.3); Total Protein 7.1 g/dL (6.3-8.2)
[2022-05-22 12:48] LABS: Appearance,Urine Clear (Clear); Bilirubin,Urine Negative (Negative); Blood,Urine Negative (Negative); Color,Urine Colorless; Glucose,Urine (UA) Negative (Negative); Ketones,Urine Negative (Negative); Leukocyte Esterase,Urine Negative (Negative); Nitrite,Urine Negative (Negative); Protein,Urine Negative (Negative); Specific Gravity,Urine 1.007 (1.001-1.035); Urobilinogen,Urine <2.0 mg/dL (<2.0)
[2022-05-22] MEDS ORDERED: KETOROLAC 15 MG/ML 1 ML VIAL IVP STA (12:49)
[2022-05-22 12:52] LABS: Basophils % (A) 0 %; Eosinophils % (A) 0 %; HCT 37.1 % (34.0-46.0); HGB 11.9 gm/dL (11.4-16.0); Hypochromasia Slight; Lymphocytes # (A) 1.7 k/uL (1.0-4.8); Lymphocytes % (A) 17 %; MCH 27.1 pg (25.0-35.0); MCHC 32.2 g/dL (31.0-37.0); MCV 84.2 fL (80.0-100.0); Mean Platelet Volume 9.4; Monocytes # (A) 0.5 k/uL (0-1.0); Monocytes % (A) 5 %; Neutrophils # (A) 8.1 k/uL (1.3-7.7); Neutrophils % (A) 77 %; Platelet Count 208 k/uL (150-450); RBC 4.41 m/uL (3.80-5.40); RDW 15.1 % (11.5-15.5); WBC 10.5 k/uL (3.8-10.6)
[2022-05-22 13:14] LABS: INR 0.9 (<1.2); Partial Thromboplastin Time 27.9 sec (22.0-30.0)
[2022-05-22] MEDS ORDERED: HEPARIN SODIUM 1,000 UN/ML (10ML VL) IV PRN (16:52)
[2022-05-22] MEDS ORDERED: HEPARIN SODIUM 1,000 UN/ML (10ML VL) IV ONE (16:52)
[2022-05-22] MEDS ORDERED: HEPARIN SOD,PORK IN 0.45% NACL 25,000 UNIT in 0.45% NACL 1 250ML.BAG IV SCH (17:00)
[2022-05-22] MEDS ORDERED: ACETAMINOPHEN TAB 325 MG TAB PO PRN (20:11)
[2022-05-22] MEDS ORDERED: ONDANSETRON 4 MG/2 ML VIAL IVP PRN (20:11)
[2022-05-22] MEDS: LATANOPROST 0.005% OPHTH DROPS 2.5 ML BTL BOTH EYES SCH (21:33)
[2022-05-22] MEDS: TIMOLOL 0.5% OPHTH DROPS 5 ML BTL BOTH EYES SCH (21:33)
[2022-05-22] MEDS: BRIMONIDINE TARTRATE 0.2% DROPS 5 ML BTL BOTH EYES SCH (21:33)
--- NOTE | 2022-05-23 04:27 | HP ---
HISTORY AND PHYSICAL CHIEF COMPLAINT: Falls and elevated troponin. HISTORY OF PRESENT ILLNESS: This 81-year-old woman with a past medical history of atrial ablation, hypertension, DJD, was living by herself. The patient apparently had problem with dizziness. Today the patient had episode of dizziness and the patient passed out and the patient injured her left knee. The patient has some swelling, but no fracture. The patient was admitted for further evaluation. Troponins elevated up to 0.166. There is no history of any fever, rigors, or chills at this time. PAST MEDICAL HISTORY: Reviewed include atrial fibrillation, the rest of the history and the whole chart is reviewed. HOME MEDICATIONS: Once again reviewed which include losartan doses and rest of medications reviewed. ALLERGIES: Sulfa. FAMILY HISTORY: History of breast and lung cancer. SOCIAL HISTORY: Previous history of smoking. REVIEW OF SYSTEMS: A 14-point review is negative as mentioned earlier. PHYSICAL EXAMINATION: VITAL SIGNS: Pulse is 76, blood pressure 135/80, and respirations 18. HEENT: Conjunctivae normal. NECK: No jugular venous distention. No carotid bruit. CARDIOVASCULAR: S1, S2 muffled. RESPIRATIONS: Diminished at the bases, few rhonchi. No crackles. ABDOMEN: Soft, nontender. LEGS: Significant pain and swelling of the left knee, status post trauma. NERVOUS SYSTEM: No focal deficits. SKIN: No ulcer, rash, bleeding. JOINTS: No active deforming arthropathy. LABS: WBC 10.1, hemoglobin 7.9. Troponin is noted. ASSESSMENT: 1. Fall and left knee pain. 2. Troponin 0.166, possible acute grw-BU-ouxswwe-elevation myocardial infarction. 3. Dizziness and syncope, possibly cardiac syncope, rule out TIA. 4. Atrial fibrillation. 5. Multiple medical issues. RECOMMENDATIONS: This 81-year-old woman presented with multiple complex medical issues as mentioned above. At this time, I recommended to continue current medications, continue to monitor patient closely, cardiac monitoring, monitor orthostatic vitals, cardiology and neurology consultations, elevation of troponin very significant and concerning. Otherwise, we will provide symptomatic pain management and prognosis guarded. Further recommendations to follow. See orders for details. Home medication will be ordered once they are confirmed. Discussed with the patient and family at length. Please note, apparently the patient is living by herself too. MMODL / IJN: [id number] /
[2022-05-23 04:47] LABS: Basophils # (A) 0.1 k/uL (0-0.2); Basophils % (A) 1 %; Eosinophils # (A) 0.1 k/uL (0-0.7); Eosinophils % (A) 1 %; HCT 29.9 % (34.0-46.0); HGB 10.2 gm/dL (11.4-16.0); Hypochromasia Slight; Lymphocytes # (A) 2.8 k/uL (1.0-4.8); Lymphocytes % (A) 34 %; MCH 28.9 pg (25.0-35.0); MCHC 34.1 g/dL (31.0-37.0); MCV 84.9 fL (80.0-100.0); Mean Platelet Volume 8.5; Monocytes # (A) 0.6 k/uL (0-1.0); Monocytes % (A) 7 %; Neutrophils # (A) 4.5 k/uL (1.3-7.7); Neutrophils % (A) 54 %; Platelet Count 180 k/uL (150-450); RBC 3.53 m/uL (3.80-5.40); RDW 15.3 % (11.5-15.5); WBC 8.3 k/uL (3.8-10.6)
[2022-05-23] MEDS: LOSARTAN 50 MG TAB PO SCH (08:35)
[2022-05-23] MEDS: BRIMONIDINE TARTRATE 0.2% DROPS 5 ML BTL BOTH EYES SCH ×2 (08:35→20:48)
[2022-05-23] MEDS: ATORVASTATIN 40 MG TAB PO SCH (08:35)
[2022-05-23] MEDS: TIMOLOL 0.5% OPHTH DROPS 5 ML BTL BOTH EYES SCH ×2 (08:35→20:48)
--- NOTE | 2022-05-23 10:42 | P.CNOR ---
History of Present Illness - [facility] Consult date: 05/23/22 History of present illness: The patient is a very pleasant 81-year-old female who is admitted to internal medicine following an episode of dizziness resulting in a fall. She was initially seen in the emergency department where x-rays were taken of the left knee. She was admitted due to her dizziness and elevated troponins. An orthope dics consult was placed. At the time of my evaluation the patient is complaining of pain in her left knee and an inability to ambulate. She reports a history of minimal pain in the left knee but does report chronic pain in her right ankle. She denies pain in her left hip. 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" and "meningiomas 3 on brain" MRA done recently, pt has had other dizzy spells History of Any Multi-Drug Resistant Organisms: None Reported Past Surgical History: Cholecystectomy, Heart Catheterization, Hysterectomy Additional Past Surgical History / Comment(s): rt cataract sx, injection lt foot, menigiomas removed, cataract surgery Past Anesthesia/Blood Transfusion Reactions: No Reported Reaction Smoking Status: Former smoker - Past Family History Father Family Medical History: Cancer, Congestive Heart Failure (CHF) Additional Family Medical History / Comment(s): ENLARGED HEART Brother(s) Family Medical History: Cancer, Liver Disease Additional Family Medical History / Comment(s): CANCER IN HIS EYE AND IN HIS LIVER. AND 2 OTHER BROTHERS FROM [place] Sister(s) Family Medical History: CVA/TIA Mother Family Medical History: Cancer Additional Family Medical History / Comment(s): BREAST/LUNG CANCER,LEUKEMIA Medications and Allergies Home Medications Medication Instructions Recorded Confirmed Type Brimonidine Tartrate/Timolol 1 drop BOTH EYES BID 08/20/14 05/22/22 History [Combigan 0.2%/0.5% Ophth Soln] Latanoprost Ophth [Xalatan 0.005%] 1 drop BOTH EYES HS 08/20/14 05/22/22 History Apixaban [Eliquis] 5 mg PO BID 08/08/18 05/22/22 History Atorvastatin [Lipitor] 40 mg PO DAILY 05/22/22 05/22/22 History Losartan Potassium 100 mg PO DAILY 05/22/22 05/22/22 History Allergies Allergy/AdvReac Type Severity Reaction Status Date / Time Sulfa (Sulfonamide Allergy Unknown Verified 05/22/22 12: Antibiotics) Childhood monosodium glutamate [MSG] AdvReac Chest Pain Verified 05/22/22 12:22 Physical Examination The patient is sitting up at bedside in a chair. She appears comfortable. Her head is normocephalic and atraumatic. She demonstrates nonlabored breathing. Her upper extremities are without deformity and are nontender. Left lower extremity: There is no pain with passive range of motion of the hip. On inspection of the left knee there is diffuse swelling and a moderate to large effusion. She is diffusely tender over the anterior knee and both the medial and lateral joint line. There is pain with passive range of motion. Her thigh and calf are soft. She is nontender distally in the ankle. Motor and sensory function appear to be intact. Right lower extremity: There is no pain with passive range of motion of the right hip or knee. She has tenderness over the distal aspect of the ankle which she says is chronic for her. There is no overlying erythema, ecchymosis, or discoloration of the skin. Results Nonweightbearing x-rays of the left knee show no obvious fractures, diffuse osteopenia, and degenerative changes throughout the knee. - Labs Labs: Abnormal Lab Results - Last 24 Hours (Table) 05/22/22 05/22/22 05/22/22 Range/Units 12:03 12: 12:03 RBC (3.80-5.40) m/uL Hgb (11.4-16.0) gm/dL Hct (34.0-46.0) % Neutrophils # 8.1 H (1.3-7.7) k/uL APTT (22.0-30.0) sec BUN 22 H (7-17) mg/dL Glucose 105 H (74-99) mg/dL Troponin I 0.087 H* (0.000-0.034) ng/mL 05/22/22 05/22/22 05/22/22 Range/Units 14:57 19:16 23:00 RBC (3.80-5.40) m/uL Hgb (11.4-16.0) gm/dL Hct (34.0-46.0) % Neutrophils # (1.3-7.7) k/uL APTT 107.9 H* (22.0-30.0) sec BUN (7-17) mg/dL Glucose (74-99) mg/dL Troponin I 0.166 H* 0.126 H* (0.000-0.034) ng/mL 05/22/22 05/23/22 05/23/22 Range/Units 23:00 04:30 04:30 RBC 3.53 L (3.80-5.40) m/uL Hgb 10.2 L (11.4-16.0) gm/dL Hct 29.9 L (34.0-46.0) % Neutrophils # (1.3-7.7) k/uL APTT 34.8 H 38.2 H (22.0-30.0) sec BUN (7-17) mg/dL Glucose (74-99) mg/dL Troponin I (0.000-0.034) ng/mL H & H 05/22/22 05/23/22 Range/Units 12:03 04:30 Hgb 11.9 10.2 L (11.4-16.0) gm/dL Hct 37.1 29.9 L (34.0-46.0) % Coagulation 05/22/22 Range/Units 12:55 INR 0.9 (<1.2) Result Diagrams: 05/23/22 04:30 05/22/22 12:03 Assessment and Plan Assessment: Fall resulting in left knee pain Likely pre-existing knee arthritis with large effusion Chronic right ankle pain Plan: The patient's exam and imaging is most consistent with an acute exacerbation of pre-existing arthritis, howevere, due to the fact that she is having a difficult time ambulating and had a fall I would recommend getting a computed tomography scan of the left knee to rule out an occult fracture. An order was placed for a computed tomography scan without contrast of the left knee. If this shows no fractures and only degenerative changes I would recommend gentle mobilization, ice, and pain medication. We also discussed the possibility of aspirating the knee and giving her corticosteroid injection. If the computed tomography scan shows an occult fracture she would likely need a brace, protected weightbearing, and follow-up x-rays. Further recommendations following her CT scan. We'll continue to follow Time with Patient: Greater than 30
--- NOTE | 2022-05-23 13:16 | CT ---
EXAMINATION TYPE: CT knee LT wo con CT DLP: 163 mGycm, Automated exposure control for dose reduction was used. DATE OF EXAM: 05/23/2022 12:53 PM COMPARISON: Knee radiograph 08/10/2021. CLINICAL INDICATION:Female, 81 years old with history of pain after fall, inability to ambulate, Lt K nee pain TECHNIQUE: Axial images were obtained of the left knee . Additional coronal and sagittal reformatted images and soft tissue and bone window were obtained for review. 3-D reconstruction was created on a separate workstation. Contrast used: None Oral contrast used: None FINDINGS: Osteophyte formation of the tibial plateau and femoral condyles and patella. No discrete fr acture identified. There is no evidence of fracture, subluxation, or dislocation. No significant soft tissue swelling. There is a small joint effusion. No focal muscular atrophy or edema is identified. No radiopaque fore ign body identified. IMPRESSION: No discrete fracture identified, consider MRI knee for higher sensitivity for subtle fractures and fabien ny edema as clinically warranted.
--- NOTE | 2022-05-23 13:21 | XR ---
EXAMINATION TYPE: XR ankle limited LT DATE OF EXAM: 05/23/2022 12:49 PM INDICATION: Patient age:Female; 81 years old; Reason for study: pain; COMPARISON: None TECHNIQUE: The left ankle is imaged in frontal, lateral projections. FINDINGS: There is no evidence of acute osseous pathology. The joint spaces are well-preserved without evidenc e of subluxation or dislocation. Kager's fat pad is intact. Soft tissue swelling throughout the leg. No radiopaque foreign bodies are identified. Calcaneal plantar spurring noted. Calcified oral cysts s uggesting the anterior leg. IMPRESSION: 1. No evidence of acute fracture. 2. Diffuse soft tissue swelling correlate for third spacing of fluid suspicious congestive heart fail ure.
--- NOTE | 2022-05-23 13:42 | P.HPIM ---
History of Present Illness H&P Date: 05/23/22 History of present illness; patient is 81-year-old lady with past medical history significant for atrial fibrillation, hypertension, osteoarthritis who presented to the ER because of dizziness resulting in fall. Patient stated that she did not lose her consciousness. Denies any seizure-like activity. Denies any fecal or urine incontinence. Patient stated that she has history of some brain surgery for some meningioma and ever since she has been having these issues. Patient fell on her left knee and is complaining of pain there at this time. In the ER, patient was worked up, initial lab work showed white count of 8.3, hemoglobin 10.2, initial troponin was elevated at 0.166. Patient was a dmitted for further evaluation and treatment REVIEW OF SYSTEMS: CONSTITUTIONAL: No fever, no malaise, no fatigue. HEENT: No recent visual problems or hearing problems. Denied any sore throat. CARDIOVASCULAR: No chest pain, orthopnea, PND, no palpitations, no syncope. PULMONARY: No shortness of breath, no cough, no hemoptysis. GASTROINTESTINAL: No diarrhea, no nausea, no vomiting, no abdominal pain. NEUROLOGICAL: No headaches, no weakness, no numbness. HEMATOLOGICAL: Denies any bleeding or petechiae. GENITOURINARY: Denies any burning micturition, frequency, or urgency. MUSCULOSKELETAL/RHEUMATOLOGICAL: Left knee pain ENDOCRINE: Denies any polyuria or polydipsia. The rest of the 14-point review of systems is negative. PHYSICAL EXAMINATION: GENERAL: The patient is alert and oriented x3, not in any acute distress. Well developed, well nourished. HEENT: Pupils are round and equally reacting to light. EOMI. No scleral icterus. No conjunctival pallor. Normocephalic, atraumatic. No pharyngeal erythema. No thyromegaly. CARDIOVASCULAR: S1 and S2 present. No murmurs, rubs, or gallops. PULMONARY: Chest is clear to auscultation, no wheezing or crackles. ABDOMEN: Soft, nontender, nondistended, normoactive bowel sounds. No palpable organomegaly. MUSCULOSKELETAL: No joint swelling or deformity. EXTREMITIES: No cyanosis, clubbing, or pedal edema. NEUROLOGICAL: Gross neurological examination did not reveal any focal deficits. SKIN: No rashes. Assessment and plan Elevated troponin. Dizziness Left knee pain Hyperlipidemia Hypertension History of atrial fibrillation. Plan Monitor vital signs Continue telemetry monitoring. Trend troponin Continue pharmacy dose heparin for now Consult cardiology. 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" and "meningiomas 3 on brain" MRA done recently, pt has had other dizzy spells History of Any Multi-Drug Resistant Organisms: None Reported Past Surgical History: Cholecystectomy, Heart Catheterization, Hysterectomy Additional Past Surgical History / Comment(s): rt cataract sx, injection lt foot, menigiomas removed, cataract surgery Past Anesthesia/Blood Transfusion Reactions: No Reported Reaction Smoking Status: Former smoker - Past Family History Father Family Medical History: Cancer, Congestive Heart Failure (CHF) Additional Family Medical History / Comment(s): ENLARGED HEART Brother(s) Family Medical History: Cancer, Liver Disease Additional Family Medical History / Comment(s): CANCER IN HIS EYE AND IN HIS LIVER. AND 2 OTHER BROTHERS FROM [place] Sister(s) Family Medical History: CVA/TIA Mother Family Medical History: Cancer Additional Family Medical History / Comment(s): BREAST/LUNG CANCER,LEUKEMIA Medications and Allergies Home Medications Medication Instructions Recorded Confirmed Type Brimonidine Tartrate/Timolol 1 drop BOTH EYES BID 08/20/14 05/22/22 History [Combigan 0.2%/0.5% Ophth Soln] Latanoprost Ophth [Xalatan 0.005%] 1 drop BOTH EYES HS 08/20/14 05/22/22 History Apixaban [Eliquis] 5 mg PO BID 08/08/18 05/22/22 History Atorvastatin [Lipitor] 40 mg PO DAILY 05/22/22 05/22/22 History Losartan Potassium 100 mg PO DAILY 05/22/22 05/22/22 History Allergies Allergy/AdvReac Type Severity Reaction Status Date / Time Sulfa (Sulfonamide Allergy Unknown Verified 05/22/22 12:22 Antibiotics) Childhood monosodium glutamate [MSG] AdvReac Chest Pain Verified 05/22/22 12:22 Physical Exam Vitals: Vital Signs Temp Pulse Pulse Pulse Resp BP BP 05/23/22 08:00 77 18 05/23/22 04:31 98.2 F 85 16 05/22/22 23:24 97.3 F L 85 16 05/22/22 19:47 97.7 F 72 18 05/22/22 18:05 98.2 F 85 17 147/65 05/22/22 17:41 98.0 F 88 18 138/62 05/22/22 14:57 76 18 135/89 BP Pulse Ox 05/23/22 08:00 141/80 95 05/23/22 04:31 114/65 94 L 05/22/22 23:24 111/63 96 05/22/22 19:47 135/71 94 L 05/22/22 18:05 97 05/22/22 17:41 96 05/22/22 14:57 95 Intake and Output 05/22/22 05/23/22 05/23/22 22:59 06:59 14:59 Intake Total 30.333 51.17 Balance 30.333 51.17 Intake: Intake, IV Titration 30.333 51.17 Amount Heparin Sod,Pork in 0.45% 30.333 51.17 NaCl 25,000 unit In 0.45 % NaCl 1 250ml.bag @ 10. 807 UNITS/KG/HR 10 mls/hr IV .Q24H [facility] Rx#: [id number] Other: Voiding Method Bedside Commode Bedside Commode # Voids 1 1 1 Weight 92.533 kg Results CBC & Chem 7: 05/23/22 04:30 05/22/22 12:03 Labs: Abnormal Lab Results - Last 24 Hours (Table) 05/22/22 05/22/22 05/22/22 Range/Units 14:57 19:16 23:00 RBC (3.80-5.40) m/uL Hgb (11.4-16.0) gm/dL Hct (34.0-46.0) % APTT 107.9 H* (22.0-30.0) sec Troponin I 0.166 H* 0.126 H* (0.000-0.034) ng/mL 05/22/22 05/23/22 05/23/22 Range/Units 23:00 04:30 04:30 RBC 3.53 L (3.80-5.40) m/uL Hgb 10.2 L (11.4-16.0) gm/dL Hct 29.9 L (34.0-46.0) % APTT 34.8 H 38.2 H (22.0-30.0) sec Troponin I (0.000-0.034) ng/mL 05/23/22 Range/Units 10:46 RBC (3.80-5.40) m/uL Hgb (11.4-16.0) gm/dL Hct (34.0-46.0) % APTT 62.9 H (22.0-30.0) sec Troponin I (0.000-0.034) ng/mL Thrombosis Risk Factor Assmnt - Choose All That Apply Any of the Below Risk Factors Present?: Yes Each Factor Represents 1 point: Obesity (BMI >25), Swollen legs (current) Other Risk Factors: Yes Each Risk Factor Represents 3 Points: Age 75 years or older Other congenital or acquired thrombophilia - If yes, enter type in comment: No Thrombosis Risk Factor Assessment Total Risk Factor Score: 5 Thrombosis Risk Factor Assessment Level: High Risk
[2022-05-23] MEDS: APIXABAN 5 MG TAB PO SCH (14:20)
--- NOTE | 2022-05-23 15:19 | CA ---
Transthoracic Echo Report Name: Milly Lloyd Age: 81 Gender: F : 1940 Exam Date: 05/23/2022 13:46 Exam Location: [facility] Ht (in): 50 Wt (lb): 204 Ordering Physician: Cecilia Herring Attending/Referring Phys: Shucker Shantel Hoyos RDCS Procedure CPT: Indications: postive trops Cardiac Hx: Technical Quality: Contrast 1: Total Dose (mL): Contrast 2: Total Dose (mL): MEASUREMENTS (Male / Female) Normal Values 2D ECHO LV Diastolic Diameter PLAX 4.8 cm 4.2 - 5.9 / 3.9 - 5.3 cm LV Systolic Diameter PLAX 3.2 cm IVS Diastolic Thickness 1.1 cm 0.6 - 1.0 / 0.6 - 0.9 cm LVPW Diastolic Thickness 1.1 cm 0.6 - 1.0 / 0.6 - 0.9 cm LV Relative Wall Thickness 0.5 RV Internal Dim ED PLAX 2.2 cm LA Systolic Diameter LX 4.0 cm 3.0 - 4.0 / 2.7 - 3.8 cm M-MODE Aortic Root Diameter MM 2.7 cm LA Systolic Diameter MM 4.0 cm LA Ao Ratio MM 1.4 MV E Point Septal Separation 0.5 cm AV Cusp Separation MM 1.6 cm DOPPLER MV Area PHT 1.8 cm??? Mitral E Point Velocity 97.0 cm/s Mitral A Point Velocity 104.9 cm/s Mitral E to A Ratio 0.9 MV Deceleration Time 410.6 ms MV E' Velocity 5.8 cm/s Mitral E to MV E' Ratio 16.8 FINDINGS Left Ventricle Mildly increased septal wall thickness. Mildly increased posterior wall thickness. Left ventricular ejection fraction is estimated at 55 %. Left ventricular cavity size normal. Right Ventricle Normal right ventricular size and function. Right ventricular systolic pressure within normal limits. Right Atrium Normal right atrial size. Left Atrium Mildly increased left atrial diameter. Mitral Valve Structurally normal mitral valve. Mild mitral regurgitation. Aortic Valve Trileaflet aortic valve. Tricuspid Valve Structurally normal tricuspid valve. Mild tricuspid regurgitation. Pulmonic Valve Pulmonic valve not well visualized. Pericardium Echo free space anterior to the right ventricle likely represents a fat pad. Aorta Normal size aortic root and proximal ascending aorta. CONCLUSIONS Normal left ventricular size wall motion systolic function Mild mitral regurgitation Mild tricuspid regurgitation Previewed by: Dr. Jarvis Wilson MD (Electronically Signed) Final Date: 23 May 2022 15:19
[2022-05-23] MEDS: LATANOPROST 0.005% OPHTH DROPS 2.5 ML BTL BOTH EYES SCH (20:48)
--- NOTE | 2022-05-23 23:54 | CONS ---
CONSULTATION CHIEF COMPLAINT: Elevated troponin. HISTORY OF PRESENT ILLNESS: Milly is an 81-year-old lady with history of paroxysmal atrial fibrillation, mild nonobstructive coronary artery disease, hypertension, dyslipidemia, who presented to hospital having had an episode of syncope at home. The patient has had multiple prior syncopal events. This episode happened yesterday following episodes of dizziness. It is unclear if the patient is having episodes of vertigo, then having syncope. She fell down and bumped her left knee. Since being admitted, she has been doing well and does not have any other symptoms. She has had 3 sets of troponins that are all at the same level at 0.1. Her EKG shows atrial fibrillation with PVCs and nonspecific ST-T wave changes. The patient had an echocardiogram last year that revealed normal LV systolic function. She has been stable hemodynamically and her hemoglobin is low at 10.2 and it is a drop from where it used to be around 13. PAST MEDICAL HISTORY: Significant for persistent atrial fibrillation and dyslipidemia. CURRENT MEDICATIONS: Include, 1. Eliquis 5 b.i.d. 2. Lipitor 40 daily. ALLERGIES: To sulfa. FAMILY HISTORY: Negative for premature coronary artery disease. SOCIAL HISTORY: Negative for smoking, EtOH abuse or drug abuse. REVIEW OF SYSTEMS: 14 out of 14 review of systems has been performed. Pertinents are as documented. PHYSICAL EXAMINATION: GENERAL: Comfortable at rest. VITAL SIGNS: Stable. There is no jugular venous distention. Carotid upstroke is normal. There is no bruit. CHEST: Reveals good air entry bilaterally. HEART: Reveals first and second heart sounds. No gallop. No murmur. ABDOMEN: Soft, nontender. Exam of extremities did not reveal any edema. Peripheral pulses are felt. ASSESSMENT AND PLAN: 1. Troponin elevation of unclear clinical significance. 2. Syncope probably related to dizziness and vertigo. 3. Persistent atrial fibrillation. PLAN: I will obtain a 2D echo on her today. Watch her on telemetry. Stop the IV heparin, start her on Eliquis. If she does not have further episodes of this, we can discharge her home and arrange an outpatient stress test on her. MMODL / IJN: [id number] /
[2022-05-24 09:18] VITALS: BP 142/78; PULSE 73; RESP 18; TEMP 97.8
[2022-05-24] MEDS: ATORVASTATIN 40 MG TAB PO SCH (09:19)
[2022-05-24] MEDS: APIXABAN 5 MG TAB PO SCH (09:19)
[2022-05-24] MEDS: BRIMONIDINE TARTRATE 0.2% DROPS 5 ML BTL BOTH EYES SCH (09:19)
[2022-05-24] MEDS: TIMOLOL 0.5% OPHTH DROPS 5 ML BTL BOTH EYES SCH (09:19)
[2022-05-24] MEDS: LOSARTAN 50 MG TAB PO SCH (09:19)
--- NOTE | 2022-05-24 09:22 | P.PN ---
Subjective Progress Note Date: 05/24/22 Patient is examined bedside this morning with Dr. Rodriguez. She is being followed for left knee pain. CT of the left knee was performed yesterday, which was negative for acute fracture. Patient continues to experience left knee pain. She is currently up to the bedside chair and ambulating with a walker. No new complaints this morning. Objective - Vital Signs Vital signs: Vital Signs Temp 97.4 F L 05/24/22 04:00 Pulse 79 05/24/22 04:00 Resp 16 05/24/22 04:00 BP 147/72 05/24/22 04:00 Pulse Ox 93 L 05/24/22 04:00 FiO2 Intake & Output 05/23/22 05/24/22 05/24/22 18:59 06:59 18:59 Intake Total 240 Balance 240 Intake: Oral 240 Other: # Voids 1 1 - Exam On examination, patient is sitting up in the bedside chair in no apparent distress. She is alert and orientated x3. On inspection of her left knee, there is diffuse swelling. Mild, diffuse pain with palpation of the knee. Minimal pain with PROM of the knee. No pain PROM of the hip. Motor and sensory function intact LLE. LLE warm and well perfused. Calf non-tender. - Labs CBC & Chem 7: 05/23/22 04:30 05/22/22 12:03 Labs: Abnormal Lab Results - Last 24 Hours (Table) 05/23/22 Range/Units 10:46 APTT 62.9 H (22.0-30.0) sec - Imaging and Cardiology CT scan left knee reviewed. Assessment and Plan Assessment: Left knee pain Left knee arthritis Plan: - CT scan images were reviewed with Dr. Rodriguez. No acute fractures identified. Patient's left knee pain is most likely secondary to acute flare of pre-existing knee arthritis. No surgical intervention recommended. Recommend symptomatic treatment to include rest, ice, elevation, oral/topical NSAIDs, physical therapy. We also discussed the possibility of a cortisone injection in an office setting. Patient states she has received cortisone injections in the past by Dr. Hobbs. Therefore she was instructed to follow-up on an outpatient basis with Dr. Hobbs after discharge if she continues to experience issues with her left knee. We will sign off at this time. Agree with above note. I reviewed the radiologist's report of the CT scan and also looked at the imaging myself. I don't see any obvious fractures. There are diffuse degenerative changes and multiple osteophytes. Her presentation is MOST consistent with an exacerbation of arthritis. We also discussed the possibility of an occult fracture not seen on xray or CT. If she continues to have issues she could have an MRI. I recommended an attempt at mobilization, ice, therapy and pain medications. She has previously seen Dr. Hobbs for her knee and would like to follow-up with him as an outpatient for further management.
--- NOTE | 2022-05-24 11:29 | P.CNNES ---
History of Present Illness Consult date: 05/24/22 Requesting physician: Guicho Mejía Reason for Consult: Dizziness History of Present Illness: Patient is a 81-year-old female with history of vertigo in the past, meningioma resection came to the hospital by ambulance on 05/22/2022 at 10:45 AM for an episode of vertigo and a fall. EMS flow sheet not available in the chart. Patient states that she was carrying a cup of coffee in her hand and walking down the hallway, when she had a very brief vertigo, and she lost balance and fell. She landed on her left knee. It took almost 1 hour for her to crawl to the bed but she could not get up on her feet. With a back computer aided design designer, she got hold of her cell phone and called the ambulance and was brought to the hospital. She lives by herself. Patient states that she was hospitalized first time on 01/11/2021 for 3 days and was seen by Dr. Hughes and diagnosed with vertigo and meningioma. On reviewing records as mentioned below, she was actually seen on 09/14/2017 for the vertigo. Patient states that she again had an episode of vertigo in December 2021 and she was in and out of the hospital. She had 2 more episodes on 04/16/2022 and then in April 2022, each time she had a very brief vertigo lasting for a few seconds, and she falls. Patient states that she does not remember falling, but when she hits the ground, she is unaware of her surroundings. Never had any seizure. When she gets this vertigo, she tries to lean against the wall but then she still falls. When she falls, she finds herself awake. Vital signs arrival blood pressure 156/81, pulse rate 75, temperature 97.7. EKG shows sinus rhythm with marked rhythm irregularity, possible non-conducted PAC. X-ray of the knee showed degenerative joint changes with lateral compartment and patellofemoral compartment. Chest x-ray showed no acute process. Computed tomography scan of the head showed previous right frontal craniotomy flap with underlying anterior frontal lobe resection cavity. Mild to moderate generalized atrophy and patchy and confluent burden of chronic small vessel ischemic disease. No acute intracranial abnormality. I personally reviewed CT head, agree with the findings. CT of the cervical spine showed no acute fracture or malalignment of the cervical spine. A 1 cm right upper lobe pulmonary nodule appears increased in size from 2018 where it measured 7 mm. Recommend pulmonary medicine referral for appropriate subsequent surveillance. Patient's blood test shows normal CBC, PT/PTT, normal chem 20, troponin is mildly elevated 0.087. UA is negative. Patient has been seen by Dr. Hughes on 09/14/2017 for posttraumatic vertigo, cervical vertigo with new onset atrial fibrillation. At that time patient had presented with acute dizziness and vertigo progressive over 1 week period. Patient did sustain a fall back in July 2017 and fell on her buttock region. Acute labyrinthitis versus cervical vertigo was considered. CTA of the neck revealed 75% stenosis right ICA. Patient states she underwent meningioma resection on 08/04/2018. She was found to have 3 meningiomas. Patient states that in December 2021, she had undergone MRI of the brain, and MRA. No recurrence of meningioma. However her right ICA stenosis was down to 60% instead of 70-80% with the previous imaging. Patient has history of atrial fibrillation, currently on Eliquis. Patient does have some hearing loss and using hearing aids bilaterally. Denies any tinnitus. No pain or pressure in the ear. Patient smoked 1 pack per day for 35 years, quit on 08/24/1993. She drinks bloody [place], [place] and some beer occasionally. Review of Systems Constitutional: Denies chills, Denies chronic headaches, Denies fever Eyes: denies blurred vision, denies pain Ears: bilateral: decreased hearing, deny: ear discharge, earache, tinnitus Ears, nose, mouth and throat: Denies headache, Denies sore throat Cardiovascular: Denies chest pain, Denies shortness of breath Respiratory: Denies cough Gastrointestinal: Denies abdominal pain, Denies diarrhea, Denies nausea, Denies vomiting Genitourinary: Denies dysuria, Denies hematuria Musculoskeletal: Denies myalgias Musculoskeletal: left: knee pain, knee stiffness, knee swelling Integumentary: Denies pruritus, Denies rash Neurological: Denies numbness, Denies weakness Psychiatric: Denies anxiety, Denies depression Endocrine: Denies fatigue, Denies weight change Hematologic/Lymphatic: Denies easy bruising Past Medical History Past Medical History: Atrial Fibrillation, Hypertension, Neurologic Disorder, Osteoarthritis (OA), Pneumonia Additional Past Medical History / Comment(s): glaucoma, diverticulitis, BRONCHITIS ,LT EYE CATARACT, PT STATED"HAd RUPTURE ON OPTIC NERVE RT EYE", uti, pt states "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" and "meningiomas 3 on brain" MRA done recently, pt has had other dizzy spells History of Any Multi-Drug Resistant Organisms: None Reported Past Surgical History: Cholecystectomy, Heart Catheterization, Hysterectomy Additional Past Surgical History / Comment(s): rt cataract sx, injection lt foot, menigiomas removed, cataract surgery Past Anesthesia/Blood Transfusion Reactions: No Reported Reaction Smoking Status: Former smoker - Past Family History Father Family Medical History: Cancer, Congestive Heart Failure (CHF) Additional Family Medical History / Comment(s): ENLARGED HEART Brother(s) Family Medical History: Cancer, Liver Disease Additional Family Medical History / Comment(s): CANCER IN HIS EYE AND IN HIS LIVER. AND 2 OTHER BROTHERS FROM [place] Sister(s) Family Medical History: CVA/TIA Mother Family Medical History: Cancer Additional Family Medical History / Comment(s): BREAST/LUNG CANCER,LEUKEMIA Medications and Allergies Home Medications Medication Instructions Recorded Confirmed Type Brimonidine Tartrate/Timolol 1 drop BOTH EYES BID 08/20/14 05/22/22 History [Combigan 0.2%/0.5% Ophth Soln] Latanoprost Ophth [Xalatan 0.005%] 1 drop BOTH EYES HS 08/20/14 05/22/22 History Apixaban [Eliquis] 5 mg PO BID 08/08/18 05/22/22 History Atorvastatin [Lipitor] 40 mg PO DAILY 05/22/22 05/22/22 History Losartan Potassium 100 mg PO DAILY 05/22/22 05/22/22 History Allergies Allergy/AdvReac Type Severity Reaction Status Date / Time Sulfa (Sulfonamide Allergy Unknown Verified 05/22/22 12:22 Antibiotics) Childhood monosodium glutamate [MSG] AdvReac Chest Pain Verified 05/22/22 12:22 Physical Examination - Vital Signs Vital Signs: Vital Signs Temp Pulse Resp BP Pulse Ox 05/24/22 04:00 97.4 F L 79 16 147/72 93 L 05/23/22 23:29 97.5 F L 79 16 118/59 95 05/23/22 19:41 97.4 F L 75 16 108/68 97 05/23/22 16:00 98.1 F 79 18 133/67 96 Intake and Output 05/23/22 05/24/22 05/24/22 22:59 06:59 14:59 Intake Total 240 Balance 240 Intake: Oral 240 Other: # Voids 1 Patient is an elderly female, very pleasant, in no acute distress. Patient is alert awake oriented to time place and person. Speech and language functions are normal. Patient can name and repeat very well. No aphasia or dysarthria. Attention, concentration and fund of knowledge is adequate. On cranial nerve examination, pupils are equal, round and reacting to light, visual hughes are full on confrontation, with no neglect on double simultaneous stimulation. Extraocular muscles are intact with no nystagmus. Face is symmetric, tongue protrudes to the midline. Palatal elevation and sensation normal, hearing is decreased bilaterally and shoulder shrug normal, facial sensation normal. On muscle strength testing, there is no pronator drift and the strength is normal in arms and legs distally and proximally. Left knee not checked because of pain. Deep tendon reflexes are symmetric 1+ to 2 all over and plantars downgoing. Sensory to touch is equal with no neglect on double simultaneous stimulation. Cerebellar function showed no ataxia for [id number] testing. No dysdiadochokinesia. Tone and bulk of muscles normal. Gait deferred.. On general examination, there is no carotid bruit or murmur, S1-S2 audible. Chest is clear on consultation. Abdomen is soft nontender. No organomegaly, bowel sounds present. Peripheral pulses are present. Results - Laboratory Findings CBC and BMP: 05/23/22 04:30 05/22/22 12:03 Abnormal Lab Findings: Abnormal Labs 05/22/22 05/22/22 05/22/22 12:03 12:03 12:03 RBC Hgb Hct Neutrophils # 8.1 H APTT BUN 22 H Glucose 105 H Troponin I 0.087 H* 05/22/22 05/22/22 05/22/22 14:57 19:16 23:00 RBC Hgb Hct Neutrophils # APTT 107.9 H* BUN Glucose Troponin I 0.166 H* 0.126 H* 05/22/22 05/23/22 05/23/22 23:00 04:30 04:30 RBC 3.53 L Hgb 10.2 L Hct 29.9 L Neutrophils # APTT 34.8 H 38.2 H BUN Glucose Troponin I 05/23/22 10:46 RBC Hgb Hct Neutrophils # APTT 62.9 H BUN Glucose Troponin I Assessment and Plan Assessment: * Recurrent episodes of vertigo, probably due to peripheral vestibular dysfunction. * Left knee injury due to fall from vertigo. * Atrial fibrillation, on Eliquis * History of right ICA stenosis, 60% as per recent MRA per patient in December 2021. * History of meningioma resection 08/04/2018 * X tobacco use Plan: * Patient has recurrent episodes of vertigo, possible due to peripheral vestibular dysfunction. Patient does use hearing aids. Recommend patient follow-up with ENT specialist to evaluate for peripheral vestibular dysfunction. Patient has previously seen Dr. Mendez for hearing aids. She will follow-up with him. * Patient has history of meningiomas, status post resection on 08/04/2018. Patient follows up with neurosurgeon Dr. Vargas at [facility]. We will check EEG to rule out any epileptiform activity. * Patient has right ICA stenosis 60%, for which she follows up with Dr. Dupont and Dr. Zayas. * Continue Eliquis 5 mg twice a day for stroke prevention related to atrial fibrillation. * 2-D echo revealed normal left ventricular size and wall motion systolic function. EF is 55%. Left atrial size is mildly increased. Mild MR, mild TR. * B12 373, folate 8.3, both normal * Neurologically clear. If patient is being discharged, EEG can be performed as an outpatient. * Thank you for the consult.
--- NOTE | 2022-05-24 12:55 | P.DS ---
Providers Date of admission: 05/22/22 17:04 Expected date of discharge: 05/24/22 Attending physician: Noah Eubanks MD Consults: 05/22/22 13:52 Consult Physician Urgent Consulting Provider: Herbert Rodriguez Consult Reason/Comments: Fall, left knee pain Do you want consulting provider notified?: Yes Consult Physician Urgent Consulting Provider: [facility] Consult Reason/Comments: Elevated troponin Do you want consulting provider notified?: Yes 05/23/22 13:41 Consult Physician Routine Consulting Provider: Aliyah Erickson Consult Reason/Comments: Dizziness Do you want consulting provider notified?: Yes Primary care physician: [facility] Course: Discharge diagnoses; Elevated troponin. Dizziness Left knee pain Hyperlipidemia Hypertension History of atrial fibrillation. Hospital course; patient is 81-year-old lady with past medical history significant for atrial fibrillation, hypertension, osteoarthritis who presented to the ER because of dizziness resulting in fall. Patient stated that she did not lose her consciousness. Denies any seizure-like activity. Denies any fecal or urine incontinence. Patient stated that she has history of some brain surgery for some meningioma and ever since she has been having these issues. Patient fell on her left knee and is complaining of pain there at this time. In the ER, patient was worked up, initial lab work showed white count of 8.3, hemoglobin 10.2, initial troponin was elevated at 0.166. Patient was admitted for further evaluation and treatment. Patient was seen by orthopedic's, computed tomography scan of left knee was negative for any acute fractures, orthopedics recommended symptomatically treatment. Patient also seen by cardiology, and they recommended to get a 2-D echo that showed normal LVEF, mild mitral and tricuspid regurg, cardiology cleared the patient for discharge. Patient was also seen by neurology, they recommended outpatient follow-up for EEG. Patient discharged in stable condition PHYSICAL EXAMINATION: GENERAL: The patient is alert and oriented x3, not in any acute distress. Well developed, well nourished. HEENT: Pupils are round and equally reacting to light. EOMI. No scleral icterus. No conjunctival pallor. Normocephalic, atraumatic. No pharyngeal erythema. No thyromegaly. CARDIOVASCULAR: S1 and S2 present. No murmurs, rubs, or gallops. PULMONARY: Chest is clear to auscultation, no wheezing or crackles. ABDOMEN: Soft, nontender, nondistended, normoactive bowel sounds. No palpable organomegaly. MUSCULOSKELETAL: No joint swelling or deformity. EXTREMITIES: No cyanosis, clubbing, or pedal edema. NEUROLOGICAL: Gross neurological examination did not reveal any focal deficits. SKIN: No rashes. Plan - Discharge Summary Discharge Rx Participant: No New Discharge Prescriptions: Continue Latanoprost Ophth [Xalatan 0.005%] 1 drop BOTH EYES HS Brimonidine Tartrate/Timolol [Combigan 0.2%/0.5% Ophth Soln] 1 drop BOTH EYES BID Apixaban [Eliquis] 5 mg PO BID Atorvastatin [Lipitor] 40 mg PO DAILY Losartan Potassium 100 mg PO DAILY Discharge Medication List Brimonidine Tartrate/Timolol [Combigan 0.2%/0.5% Ophth Soln] 1 drop BOTH EYES BID 08/20/14 [History] Latanoprost Ophth [Xalatan 0.005%] 1 drop BOTH EYES HS 08/20/14 [History] Apixaban [Eliquis] 5 mg PO BID 08/08/18 [History] Atorvastatin [Lipitor] 40 mg PO DAILY 05/22/22 [History] Losartan Potassium 100 mg PO DAILY 05/22/22 [History] Follow up Appointment(s)/Referral(s): Justus Ledbetter DO [Primary Care Provider] - 1-2 days Discharge Disposition: HOME SELF-CARE
--- NOTE | 2022-05-24 13:39 | P.PN ---
Subjective Progress Note Date: 05/24/22 Patient seen today resting comfortably in the bedside chair in no signs of acute distress. She had an echocardiogram that showed a normal LV function with mild mitral regurgitation and mild tricuspid regurgitation. She continues on oral anticoagulation Eliquis. She continues to deny chest pain or increased shortness of breath. Patient is cleared for discharge by cardiology will follow-up outpatient for outpatient stress test. Objective - Vital Signs Vital signs: Vital Signs Temp 97.8 F 05/24/22 08:00 Pulse 73 05/24/22 08:00 Resp 18 05/24/22 08:00 BP 142/78 05/24/22 08:00 Pulse Ox 96 05/24/22 08:00 FiO2 Intake & Output 05/23/22 05/24/22 05/24/22 18:59 06:59 18:59 Intake Total 240 Balance 240 Intake: Oral 240 Other: # Voids 1 1 - Exam PHYSICAL EXAM: VITAL SIGNS: Reviewed. GENERAL: Well-developed in no acute distress. HEENT: Head is normocephalic. Pupils are equal, round. Sclerae anicteric. Mucous membranes of the mouth are moist. NECK: Supple. No JVD or thyromegaly RESPIRATORY: Respirations even and unlabored. Lungs diminished to auscultation bilaterally. CARDIO: Regular rate and rhythm. S1 and S2 heard. No murmur or gallops. EXTREMITIES: Normal range of motion. No clubbing or cyanosis. Peripheral pulses intact. Negative for bilateral lower extremity edema NEURO: Orientated to person, time, mood is appropriate - Labs CBC & Chem 7: 05/23/22 04:30 05/22/22 12:03 Labs: Abnormal Lab Results - Last 24 Hours (Table) 05/23/22 Range/Units 10:46 APTT 62.9 H (22.0-30.0) sec Assessment and Plan Assessment: Elevated troponin Echo patient has a normal LV function, ruling out ACS Syncopal episode probably related to dizziness and vertigo Persistent atrial fibrillation Plan: Echocardiogram reviewed, ACS ruled out start imdur 30 mg and aspirin 81 mg patient is advised to follow-up outpatient for an outpatient stress patient cleared for discharge from a cardiac standpoint The above impression and plan of care have been discussed and directed by the s igning physician. Cecilia Herring, nurse practitioner, acting as scribe for signing physician.
== END 2022-05-24 13:22 | disposition home or self-care (01) ==
LOC: EC 10:45 → 3SCARD 13:52 → INTOOBSV 17:04 → OBSVTOIN 17:04 → 3SCARD 17:18 → UNDODISIN 05-24 13:11
PROVIDERS: ADMIT Internal Medicine; ATTEND Internal Medicine
DX: R42 Dizziness and giddiness (principal); R79.89 Other specified abnormal findings of blood chemistry; R55 Syncope and collapse; I48.19 Other persistent atrial fibrillation; I25.10 Atherosclerotic heart disease of native coronary artery without angina pectoris; I10 Essential (primary) hypertension; I65.21 Occlusion and stenosis of right carotid artery; I49.3 Ventricular premature depolarization; H40.9 Unspecified glaucoma; K57.90 Diverticulosis of intestine, part unspecified, without perforation or abscess without bleeding; H26.9 Unspecified cataract; M17.12 Unilateral primary osteoarthritis, left knee; M25.462 Effusion, left knee; W19.XXXA Unspecified fall, initial encounter; G89.29 Other chronic pain; M25.571 Pain in right ankle and joints of right foot; E78.5 Hyperlipidemia, unspecified; I08.1 Rheumatic disorders of both mitral and tricuspid valves; H91.90 Unspecified hearing loss, unspecified ear; R29.6 Repeated falls; E66.9 Obesity, unspecified; Z68.42 Body mass index [BMI] 45.0-49.9, adult; Z79.01 Long term (current) use of anticoagulants; Z79.899 Other long term (current) drug therapy; Z91.02 Food additives allergy status; Z88.2 Allergy status to sulfonamides; Z97.4 Presence of external hearing-aid; Z86.011 Personal history of benign neoplasm of the brain; Z87.01 Personal history of pneumonia (recurrent); Z90.49 Acquired absence of other specified parts of digestive tract; Z90.710 Acquired absence of both cervix and uterus; Z98.41 Cataract extraction status, right eye; Z87.440 Personal history of urinary (tract) infections; Z87.891 Personal history of nicotine dependence; Z82.3 Family history of stroke; Z82.49 Family history of ischemic heart disease and other diseases of the circulatory system; Z80.6 Family history of leukemia; Z80.1 Family history of malignant neoplasm of trachea, bronchus and lung; Z80.3 Family history of malignant neoplasm of breast; Z80.0 Family history of malignant neoplasm of digestive organs; Z80.8 Family history of malignant neoplasm of other organs or systems
CPT/HCPCS: 96376 ×2; 96366 ×2; 96365; 96375; 99285; 36415; 93005; 93306; 80053; 82607; 82746; 83735; 84484; 85025 ×2; 85610; 85730 ×2; 81003; 73562; 73600; 71046; 72125; 70450; 73700; G0378 ×3; J1644 ×3; J1885

== ENCOUNTER → 2022-06-30 | Outpatient (CLI) | payer MEDICARE ==
--- NOTE | 2022-06-30 17:40 | XR ---
EXAMINATION TYPE: XR cervical spine comp DATE OF EXAM: 06/30/2022 3:45 PM INDICATION: Patient age:Female; 81 years old; Reason for study: M54.2 CERVICALGIA; . COMPARISON: 08/03/2017, CT 05/22/2022 TECHNIQUE: The cervical spine was imaged in frontal, lateral, odontoid and bilateral oblique. FINDINGS: The osseous structures show normal alignment without evidence of an acute fracture. There are minimal osteophytes noted throughout the cervical spine on the anterior and lateral aspects of the vertebral bodies. The intervertebral disk spaces are preserved. Pedicles are intact. Soft tissues are within normal limits. The odontoid appears intact. IMPRESSION: 1. No fracture or dislocation. 2. 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
== END | disposition home or self-care (01) ==
LOC: RADXRMAIN 15:27
PROVIDERS: ATTEND Family Medicine
DX: M50.30 Other cervical disc degeneration, unspecified cervical region (principal)
CPT/HCPCS: 72050

== ENCOUNTER → 2022-07-10 | Outpatient (CLI) | payer MEDICARE ==
--- NOTE | 2022-07-14 11:01 | PE ---
EXAMINATION TYPE: PET CT fusion skull to thigh DATE OF EXAM: 07/10/2022 COMPARISON: NONE at this institution. HISTORY: Solitary pulmonary nodule. Right upper lung nodule. Recent abnormal CT. TECHNIQUE: Following the intravenous administration of 10.59 mCi of F-18 FDG, whole body images are performed from the skull base to the midthigh. Images are reviewed on the computer in the coronal, a xial, and sagittal planes. Reconstructed rotating images are created on independent workstation and reviewed on the computer. A localization and attenuation correction CT is performed in conjunction with the PET scan. Blood glucose level equals 93. SCAN: Initial Scan FINDINGS: SKULL BASE AND NECK: No areas of abnormal hypermetabolic uptake. CHEST, MEDIASTINUM, AND HILAR REGION: There is 1.1 x 0.7 cm peripheral right upper lobe nodule axial series 3 image 64 without abnormal hypermetabolic uptake. No areas of abnormal hypermetabolic uptake in the thorax are seen. ABDOMEN AND PELVIS: No adrenal masses. No areas of abnormal hypermetabolic uptake. Normal excretion. OSSEOUS STRUCTURES: No areas of abnormal hypermetabolic uptake. OTHER CT: There is cardiomegaly with multilead pacemaker/defibrillator. There is moderate calcified p laque near the right carotid bulb. Calcification at level of the mitral and aortic valves. There is m oderate proximal LAD calcification. Cholecystectomy clips are seen. There is 2.7 cm thin-walled cyst anteriorly midpole of the left kidne y. There is ectatic and atherosclerotic abdominal aorta extending into iliac branch vessels. There is dextroconvex scoliosis centered in the upper to mid lumbar spine. There is multilevel spurri ng and disc space narrowing in the thoracolumbar spine. IMPRESSION: There is a peripheral 1.1 cm right upper lobe nodule without abnormal hypermetabolic upta ke suggesting nonneoplastic etiology. Advise short term CT follow-up in 6 months time to reassess to ensure stability. If there is interval growth repeat PET CT would be warranted.
== END | disposition home or self-care (01) ==
LOC: RADPETMAIN 12:02
PROVIDERS: ATTEND Internal Medicine Critical Care Medicine
DX: R91.1 Solitary pulmonary nodule (principal)
CPT/HCPCS: 78815; A9552

== ENCOUNTER → 2023-01-12 | Outpatient (CLI) | payer MEDICARE ==
--- NOTE | 2023-01-13 20:41 | MM ---
Reason for Exam: Screening (asymptomatic). Last mammogram was performed 1 year(s) and 2 month(s) ago. Patient History: Menarche at age 9. First Full-Term at age 23. Hysterectomy at age 36. Postmenopausal. Estrogen for 31 years, 2 months. Progesterone for 31 years, 2 months. Paternal aunt had breast cancer at or over age 50. Maternal aunt had breast cancer at or over age 50. Daughter had breast cancer, age 52. Mother had breast cancer, age 40. Risk Values: Emy 5 year model risk: 6.6%. NCI Lifetime model risk: 8.1%. Prior Study Comparison: 06/30/2019 Bilateral Screening Mammogram, [facility]. 09/30/2020 Bilateral Screening Mammogram, [facility]. 11/10/2021 Bilateral MG 3D screening mammo w/cad, [facility]. Tissue Density: There are scattered fibroglandular densities. Findings: Analyzed By CAD. There is no suspicious group of microcalcifications or new suspicious mass in either breast. Overall Assessment: Negative, BI-RAD 1 Management: Screening Mammogram of both breasts in 1 year. See note below in regards to patient's increased 5 year Emy score. Patient should continue monthly self-breast exams. A clinical breast exam by your physician is recommended on an annual basis. This exam should not preclude additional follow-up of suspicious palpable abnormalities. Note on Emy scores and lifetime risk: 1. A Emy score greater than 3% is considered moderate risk. If this is the case, consider specialist referral to assess eligibility for a risk reducing agent. 2. If overall lifetime risk for the development of breast cancer is 20% or higher, the patient may qualify for future screening with alternating mammogram and breast MRI. Electronically signed and approved by: Haroon Alcocer M.D. Radiologist
== END | disposition home or self-care (01) ==
LOC: RADMAMWWP 13:28
PROVIDERS: ATTEND Family Medicine
DX: Z12.31 Encounter for screening mammogram for malignant neoplasm of breast (principal); Z78.0 Asymptomatic menopausal state; Z80.3 Family history of malignant neoplasm of breast
CPT/HCPCS: 77063; 77067

== ENCOUNTER → 2023-01-18 | Outpatient (CLI) | payer MEDICARE ==
[2023-01-18 13:40] LABS: African American GFR (CKD) 71 (>60 ml/min/1.73 sqM); Blood Urea Nitrogen 22 mg/dL (7-17); Non-African American GFR(CKD) 61 (>60 ml/min/1.73 sqM)
--- NOTE | 2023-01-18 16:09 | CT ---
EXAMINATION TYPE: CT chest w con DATE OF EXAM: 01/18/2023 COMPARISON: PET/CT 07/10/2022, 01/03/2022 HISTORY: Lung nodule CT DLP: 464 mGycm, Automated exposure control for dose reduction was used. CONTRAST: Performed injected with 100 mL of Isovue 300. TECHNIQUE: Axial images were obtained at 5 mm thick sections. Reconstructed images are reviewed on [employer] computer in the coronal plane. FINDINGS: Portion of the thyroid visualized is normal. There is a 1.2r by 1.0 cm nodule within the lateral right upper lobe. Previous measurements of 1.1 x 0.7 cm. This appears minimally enlarged over the interval. There is a 0.6 cm nodule within the anterior right upper lung field. Series 4 image 20.r there is a l ow density area within the adjacent area measuring 0.4 cm. Series 4 image 19. No enlarged mediastinal or hilar adenopathy is evident. The ascending aorta diameter at the level o f the main pulmonary artery is 2.9 cm. The main pulmonary artery diameter at the bifurcation is 2.8 cm. Coronary artery calcification is noted. Limited CT sections are obtained through the upper abdomen. Abdomen is essentially unremarkable. IMPRESSIONS: 1. Right upper lobe nodule mass some slow interval growth. Better visualized may be 2 additional smal ler right upper lung field densities measuring 0.4 and 0.6 cm. Recommend repeat PET/CT for reevaluati on.
== END | disposition home or self-care (01) ==
LOC: RADCTMAIN 13:05
PROVIDERS: ATTEND Family Medicine
DX: R91.8 Other nonspecific abnormal finding of lung field (principal)
CPT/HCPCS: 82565; 84520; 71260; 36415; Q9967

== ENCOUNTER → 2023-02-06 | Outpatient (CLI) | payer MEDICARE ==
--- NOTE | 2023-02-06 15:23 | PE ---
EXAMINATION TYPE: PET CT fusion skull to thigh DATE OF EXAM: 02/06/2023 CLINICAL INDICATION:Female, 82 years old with history of C34.11; TECHNIQUE: Following the intravenous administration of 10.02 mCi of F-18 FDG, whole body images are performed from the skull base to the midthigh. Images are reviewed on the computer in the coronal, a xial, and sagittal planes. Reconstructed rotating images are created on independent workstation and reviewed on the computer. A non-contrast CT is performed in conjunction with the PET scan. Glucose level 101 mg/dL CT DLP: 45 mGycm, Automated exposure control for dose reduction was used. COMPARISON: CT 01/18/2023, PET: 07/10/2022 FINDINGS: Mediastinal SUV mean is 2.2. Hepatic parenchyma SUV mean is 2.6. SKULL BASE AND NECK: No suspicious radiotracer activity. CHEST, MEDIASTINUM, AND HILAR REGION: * Right upper lobe pulmonary nodule spiculated borders measuring 12 x 10 mm is similar to immediate prior max SUV 1.8, previously 1.8. * No suspicious radiotracer activity. ABDOMEN AND PELVIS: No suspicious radiotracer activity. MUSCULOSKELETAL STRUCTURES: No suspicious radiotracer activity. OTHER CT: There is cardiomegaly with multilead pacemaker/defibrillator. There is moderate calcified p laque near the right carotid bulb. Calcification at level of the mitral and aortic valves. There is m oderate proximal LAD calcification. Cholecystectomy clips are seen. There is 2.7 cm thin-walled cyst anteriorly midpole of the left kidne y. There is ectatic and atherosclerotic abdominal aorta extending into iliac branch vessels. There is dextroconvex scoliosis centered in the upper to mid lumbar spine. There is multilevel spurri ng and disc space narrowing in the thoracolumbar spine. IMPRESSION: Grossly similar size and FDG activity of right upper lobe pulmonary nodule. Finding could represent g ranulomatous disease versus malignancy. Continued surveillance with CT [facility]
== END | disposition home or self-care (01) ==
LOC: RADPETMAIN 10:18
PROVIDERS: ATTEND Internal Medicine Critical Care Medicine
DX: C34.11 Malignant neoplasm of upper lobe, right bronchus or lung (principal); R91.1 Solitary pulmonary nodule
CPT/HCPCS: 78815; A9552

== ENCOUNTER → 2024-03-08 | Outpatient (CLI) | payer MEDICARE ==
--- NOTE | 2024-03-12 15:16 | MM ---
Reason for Exam: Screening (asymptomatic). Last mammogram was performed 1 year(s) and 2 month(s) ago. Patient History: Menarche at age 9. First Full-Term at age 23. Hysterectomy at age 36. Postmenopausal. Estrogen for 31 years, 2 months. Progesterone for 31 years, 2 months. Paternal aunt had breast cancer at or over age 50. Maternal aunt had breast cancer at or over age 50. Daughter had breast cancer, age 52. Mother had breast cancer, age 40. Risk Values: Emy 5 year model risk: 6.2%. NCI Lifetime model risk: 6.9%. Prior Study Comparison: 09/30/2020 Bilateral Screening Mammogram, [facility]. 11/10/2021 Bilateral MG 3D screening mammo w/cad, [facility]. 01/12/2023 Bilateral MG 3D screening mammo w/cad, [facility]. Tissue Density: There are scattered areas of fibroglandular density. Findings: Analyzed By CAD. The pattern is symmetrical. No significant interval change. No suspicious groups of microcalcifications, spiculated or lobular masses, architectural distortion or other secondary signs of malignancy are mammographically apparent. Overall Assessment: Benign, BI-RAD 2 Management: Screening Mammogram of both breasts in 1 year. A negative mammogram report should not preclude additional follow up of suspicious palpable abnormalities. Patient should continue monthly self breast exam. A clinical breast exam by your physician is recommended on an annual basis and results should be correlated with mammographic findings. Note on Emy scores and lifetime risk: 1. A Emy score greater than 3% is considered moderate risk. If this is the case, consider specialist referral to assess eligibility for a risk reducing agent. 2. If overall lifetime risk for the development of breast cancer is 20% or higher, the patient may qualify for future screening with alternating mammogram and breast MRI. [facility], , 03/12/2024 3:13 PM. Electronically signed and approved by: Avinash Jang D.O. Radiologis
== END | disposition home or self-care (01) ==
LOC: RADMAMWWP 12:16
PROVIDERS: ATTEND Family Medicine
DX: Z80.3 Family history of malignant neoplasm of breast
CPT/HCPCS: 77063; 77067